=== PATIENT | female | born 1940 | race Caucasian/White ===

== ENCOUNTER → 2016-10-18 | Outpatient (CLI) | payer BC ==
[~2016-10-18] MED LIST: ALBU0.08 INH; ALBUAER19 INH; ATOR-54 PO; ATOR10TA82 PO; B-CO-25 PO; BUDE180I INH; CHOL2000 PO; COEN1CAP17 PO; COEN1CAP37 PO; DIGO0.1267 PO; DILT180C96 PO; EFF/375 PO; EFF75 PO; HYDR-5688 PO; LEVO75TA PO; PARO20TA4 PO; PRAM0.129 PO; PRAM1TAB47 PO; RAMI10CA PO; TEMA15CA4 PO; TEMA7.5C13 PO; VENL-271 PO; VENL-273 PO; WARF3TAB PO; WARF4TAB44 PO
[2016-10-18 10:18] LABS: INR 1.6 (0.9-1.1); PROTHROMBIN TIME (PATIENT) 16.9 SECONDS (9.0-12.0)
== END | disposition home or self-care (01) ==
LOC: C.LABFOXMH 09:36
PROVIDERS: ATTEND Internal Medicine
DX: Z79.01 Long term (current) use of anticoagulants (principal); Z51.81 Encounter for therapeutic drug level monitoring

== ENCOUNTER → 2016-11-01 | Outpatient (CLI) | payer BC ==
[~2016-11-01] MED LIST changes: -ATOR10TA82 PO; +ATOR10TA88 PO
[2016-11-01 10:00] LABS: INR 1.6 (0.9-1.1); PROTHROMBIN TIME (PATIENT) 17.8 SECONDS (9.0-12.0)
== END | disposition home or self-care (01) ==
LOC: C.LABFOXMH 09:09
PROVIDERS: ATTEND Internal Medicine
DX: Z51.81 Encounter for therapeutic drug level monitoring (principal); Z79.01 Long term (current) use of anticoagulants

== ENCOUNTER → 2016-11-15 | Outpatient (CLI) | payer BC ==
[2016-11-15 08:52] LABS: PROTHROMBIN TIME (PATIENT) 21.6 SECONDS (9.0-12.0)
== END | disposition home or self-care (01) ==
LOC: C.LABFOXMH 08:27
PROVIDERS: ATTEND Internal Medicine
DX: Z51.81 Encounter for therapeutic drug level monitoring (principal); Z79.01 Long term (current) use of anticoagulants

== ENCOUNTER → 2016-12-07 | Outpatient (CLI) | payer BC ==
[2016-12-07 08:57] LABS: INR 2.3 (0.9-1.1); PROTHROMBIN TIME (PATIENT) 25.7 SECONDS (9.0-12.0)
== END | disposition home or self-care (01) ==
LOC: C.LABFOXMH 08:28
PROVIDERS: ATTEND Internal Medicine
DX: Z51.81 Encounter for therapeutic drug level monitoring (principal); Z79.01 Long term (current) use of anticoagulants

== ENCOUNTER → 2017-01-03 | Outpatient (CLI) | payer BC ==
[2017-01-03 09:34] LABS: INR 1.3 (0.9-1.1); PROTHROMBIN TIME (PATIENT) 14.5 SECONDS (9.0-12.0)
== END | disposition home or self-care (01) ==
LOC: C.LABFOXMH 08:46
PROVIDERS: ATTEND Internal Medicine
DX: Z79.01 Long term (current) use of anticoagulants (principal)

== ENCOUNTER → 2017-01-17 | Outpatient (CLI) | payer BC ==
[~2017-01-17] MED LIST changes: +ATOR10TA82 PO; -ATOR10TA88 PO; +DILT180C58 PO; -DILT180C96 PO
[2017-01-17 09:20] LABS: INR 2.1 (0.9-1.1); PROTHROMBIN TIME (PATIENT) 22.7 SECONDS (9.0-12.0)
== END | disposition home or self-care (01) ==
LOC: C.LABFOXMH 08:57
PROVIDERS: ATTEND Internal Medicine
DX: Z51.81 Encounter for therapeutic drug level monitoring (principal); Z79.01 Long term (current) use of anticoagulants

== ENCOUNTER → 2017-01-31 | Outpatient (CLI) | payer BC ==
[2017-01-31 09:35] LABS: INR 1.7 (0.9-1.1); PROTHROMBIN TIME (PATIENT) 18.7 SECONDS (9.0-12.0)
== END | disposition home or self-care (01) ==
LOC: C.LABFOXMH 08:51
PROVIDERS: ATTEND Internal Medicine
DX: Z51.81 Encounter for therapeutic drug level monitoring (principal); Z79.01 Long term (current) use of anticoagulants

== ENCOUNTER → 2017-02-14 | Outpatient (CLI) | payer BC ==
[2017-02-14 09:04] LABS: INR 2.1 (0.9-1.1); PROTHROMBIN TIME (PATIENT) 22.8 SECONDS (9.0-12.0)
== END | disposition home or self-care (01) ==
LOC: C.LABFOXMH 08:36
PROVIDERS: ATTEND Internal Medicine
DX: Z51.81 Encounter for therapeutic drug level monitoring (principal); Z79.01 Long term (current) use of anticoagulants

== ENCOUNTER → 2017-03-07 | Outpatient (CLI) | payer BC ==
[2017-03-07 11:14] LABS: INR 1.7 (0.9-1.1); PROTHROMBIN TIME (PATIENT) 18.6 SECONDS (9.0-12.0)
== END | disposition home or self-care (01) ==
LOC: C.LABFOXMH 09:35
PROVIDERS: ATTEND Internal Medicine
DX: Z79.01 Long term (current) use of anticoagulants (principal)

== ENCOUNTER → 2017-03-28 | Outpatient (CLI) | payer BC ==
[2017-03-28 10:39] LABS: INR 1.9 (0.9-1.1); PROTHROMBIN TIME (PATIENT) 20.6 SECONDS (9.0-12.0)
== END | disposition home or self-care (01) ==
LOC: C.LABFOXMH 08:41
PROVIDERS: ATTEND Internal Medicine
DX: Z51.81 Encounter for therapeutic drug level monitoring (principal); Z79.01 Long term (current) use of anticoagulants

== ENCOUNTER → 2017-04-20 | Outpatient (CLI) | payer BC ==
[~2017-04-20] MED LIST changes: -ATOR10TA82 PO; +ATOR10TA88 PO; -DILT180C58 PO; +DILT180C96 PO
[2017-04-20 09:33] LABS: BLOOD UREA NITROGEN 14 mg/dl (7-18); BUN/CREATININE RATIO 24.3 (10-20); CALCIUM 9.4 mg/dl (8.5-10.1); CARBON DIOXIDE 30 mmol/L (21-32); CHLORIDE 106 mmol/L (98-107); CREATININE 0.58 mg/dl (0.60-1.20); GLUCOSE 108 mg/dl (70-99); POTASSIUM 3.8 mmol/L (3.5-5.1); SODIUM 141 mmol/L (136-145)
[2017-04-20 09:39] LABS: PROTHROMBIN TIME (PATIENT) 42.6 SECONDS (9.0-12.0)
[2017-04-20 09:40] LABS: INR 3.8 (0.9-1.1)
[2017-04-20 10:18] LABS: ESTIMATED AVERAGE GLUCOSE 128 mg/dl; HA1C FLAG Normal (Normal)
== END | disposition home or self-care (01) ==
LOC: C.LABFOXMH 08:57
PROVIDERS: ATTEND Internal Medicine
DX: Z51.81 Encounter for therapeutic drug level monitoring (principal); Z79.01 Long term (current) use of anticoagulants; E03.9 Hypothyroidism, unspecified; E11.9 Type 2 diabetes mellitus without complications

== ENCOUNTER → 2017-05-03 | Outpatient (CLI) | payer BC ==
[2017-05-03 17:56] LABS: BASO % 0.2 %; BASO ABS # 0.02 K/uL (0-0.2); COMPLETE YES; EOS % 3.2 %; HEMATOCRIT 40.1 % (37-47); IG% 0.2 %; LYMPH % 20.9 %; LYMPH ABS # 1.72 K/uL (1.2-3.4); MEAN CELL VOLUME 99.5 fL (80-100); MEAN CORPUSCULAR HEMOGLOBIN 34.2 pg (25-34); MEAN CORPUSCULAR HGB CONC 34.4 g/dl (32-36); MEAN PLATELET VOLUME 11.2 fL (7.4-10.4); MONO % 8.3 %; NEUT % 67.2 %; PLATELET COUNT 240 K/uL (130-400); RED BLOOD COUNT 4.03 M/uL (4.2-5.4); WHITE BLOOD COUNT 8.22 K/uL (4.8-10.8)
[2017-05-03 18:23] LABS: ALT/SGPT 23 U/L (12-78); AST/SGOT 17 U/L (15-37); BLOOD UREA NITROGEN 16 mg/dl (7-18); BUN/CREATININE RATIO 22.6 (10-20); CALCIUM 8.8 mg/dl (8.5-10.1); CARBON DIOXIDE 30 mmol/L (21-32); CHLORIDE 108 mmol/L (98-107); CREATININE 0.72 mg/dl (0.60-1.20); GLUCOSE 97 mg/dl (70-99); POTASSIUM 4.1 mmol/L (3.5-5.1); SODIUM 143 mmol/L (136-145)
== END | disposition home or self-care (01) ==
LOC: C.LAB 17:09
PROVIDERS: ATTEND Internal Medicine Cardiovascular Disease
DX: I48.91 Unspecified atrial fibrillation (principal); E78.5 Hyperlipidemia, unspecified; I25.10 Atherosclerotic heart disease of native coronary artery without angina pectoris; I10 Essential (primary) hypertension; Z79.01 Long term (current) use of anticoagulants

== ENCOUNTER → 2017-05-03 | Outpatient (CLI) | payer BC ==
[2017-05-03 09:04] LABS: INR 1.7 (0.9-1.1); PROTHROMBIN TIME (PATIENT) 18.2 SECONDS (9.0-12.0)
== END | disposition home or self-care (01) ==
LOC: C.LABFOXMH 08:34
PROVIDERS: ATTEND Nurse Practitioner Family
DX: Z79.01 Long term (current) use of anticoagulants (principal)

== ENCOUNTER → 2017-05-16 | Outpatient (CLI) | payer BC ==
[2017-05-16 11:31] LABS: INR 2.4 (0.9-1.1); PROTHROMBIN TIME (PATIENT) 26.4 SECONDS (9.0-12.0)
== END | disposition home or self-care (01) ==
LOC: C.LABFOXMH 09:42
PROVIDERS: ATTEND Nurse Practitioner Family
DX: Z51.81 Encounter for therapeutic drug level monitoring (principal); Z79.01 Long term (current) use of anticoagulants

== ENCOUNTER → 2017-06-06 | Outpatient (CLI) | payer BC ==
[2017-06-06 09:58] LABS: INR 2.3 (0.9-1.1)
== END | disposition home or self-care (01) ==
LOC: C.LABFOXMH 09:13
PROVIDERS: ATTEND Nurse Practitioner Family
DX: Z79.01 Long term (current) use of anticoagulants (principal)

== ENCOUNTER → 2017-06-12 | Outpatient (CLI) | payer BC ==
--- NOTE | 2017-06-12 13:49 | MAMMOGRAPHY REPORT ---
BILATERAL DIGITAL DIAGNOSTIC MAMMOGRAM TOMOSYNTHESIS WITH CAD AND TARGETED BILATERAL ULTRASOUND: 06/12 CLINICAL HISTORY: 77-year-old woman presents with new left bloody nipple discharge since May 26. She reports several small drops of bloody nipple discharge per day. No palpable mass or skin changes . Also due for annual bilateral mammograms. TECHNIQUE: Bilateral breast tomosynthesis in addition to standard 2D mammography was performed. Spot magnification left CC and ML views were also obtained. Current study was also evaluated with a Comp uter Aided Detection (CAD) system. COMPARISON: Comparison is made to exams dated: 07/02/2015 mammogram, 01/06/2014 mammogram, 01/04/2013 m ammogram, 12/13/2012 mammogram - [facility], and 06/17/2008 mammogram. BREAST COMPOSITION: There are scattered areas of fibroglandular density in both breasts. FINDINGS: There is diffuse nodularity in both breasts. A grouping of about 10 subcentimeter circumsc ribed masses in the 12:00 middle one third of the right breast has been present and appears unchanged dating back to at least 06/17/2008, therefore likely benign. There is also stable nodularity in the anterior and lateral right breast, and also throughout the lateral left breast. However, there is a mass with 2 associated punctate calcifications in the upper outer anterior left breast, in which onl y one calcification was present on the prior 2014 mammogram. Given the relatively stable nodularity of the lateral left breast, but new nipple discharge, further evaluation with ultrasound was performe d. Targeted ultrasound was performed in the periareolar and retroareolar left breast. There is mild rocky t ectasia with numerous scattered cysts in the periareolar left breast, some of which appear to be as sociated with mildly ectatic ducts. However, there is a solid isoechoic mass with 2 associated calci fications and angular borders in the 2:00 left breast, 1 cm from the nipple, thought to correlate wit h the 2 calcifications seen mammographically. This mass measures 4.3 x 3.2 x 4.4 mm and is indetermi vannessa, given the solid nature and angular borders. Definitive characterization with an ultrasound-jami ded core biopsy is recommended. Given the multiple bilateral nature of the masses, differential considerations include benign fibrocy stic changes but also papillomatosis. Therefore, sonographic evaluation was also performed in the 12 :00 right breast and lateral aspect of the right breast. Numerous anechoic benign simple cysts are s een in the right breast, particularly within the 12:00 axes. However, in the 12:00 right breast, 1 c m from the nipple, there is a mixed isoechoic and anechoic solid and cystic mass, predominantly solid in appearance, measuring 4.5 x 3.2 x 4.6 mm. This could represent a papillary lesion or complicated cyst, and definitive characterization with ultrasound guided core biopsy is recommended. Other mild duct ectasia with associated cysts is seen in the 7:00 right breast, and also in the 11:00 right torey ast. IMPRESSION: ACR BI-RADS CATEGORY 4B: INTERMEDIATE SUSPICION FOR MALIGNANCY, TARGETED ULTRASOUND ACR BI-RADS CATEGORY 4B: INTERMEDIATE SUSPICION FOR MALIGNANCY 1. Ultrasound guided core biopsy is recommended for an indeterminate solid angular 4.4 mm mass with 2 associated calcifications in the 2:00 left breast, 1 cm from the nipple. This could possibly be a cause of the patient's bloody nipple discharge. However, correlation with pathology results is recom mended and if the pathology results do not explain a mass that could cause nipple discharge, further workup of that since it may be needed. 2. Ultrasound-guided core needle biopsy is recommended in the 12:00 right breast, for a mixed solid and cystic, predominantly solid mass that measures 4.6 mm. These results and recommendations were discussed with the patient at the time of the exam. She tenta tively scheduled the bilateral breast ultrasound-guided core biopsies prior to leaving our department . Approximately 10% of breast cancers are not detected with mammography. A negative mammographic report should not delay biopsy if a clinically suggestive mass is present. Janelle Villagran M.D. ay/:06/12/2017 12:35:33 Valve Mechanic: Lizett SCHWAB(Pilar)(M), [facility] letter sent: Abnormal 4/5 BI-RADS Code: ACR BI-RADS Category 4B: Intermediate Suspicion For Malignancy Ultrasound BI-RADS: ACR BI-RADS Category 4B: Intermediate Suspicion For Malignancy
== END | disposition home or self-care (01) ==
LOC: C.MAMM 08:25
PROVIDERS: ATTEND Internal Medicine Hospice and Palliative Medicine
DX: N64.52 Nipple discharge (principal)

== ENCOUNTER → 2017-06-20 | Outpatient (CLI) | payer BC ==
[2017-06-20 10:05] LABS: INR 1.7 (0.9-1.1); PROTHROMBIN TIME (PATIENT) 18.8 SECONDS (9.0-12.0)
== END | disposition home or self-care (01) ==
LOC: C.LABFOXMH 09:29
PROVIDERS: ATTEND Nurse Practitioner Family
DX: Z51.81 Encounter for therapeutic drug level monitoring (principal); Z79.01 Long term (current) use of anticoagulants

== ENCOUNTER → 2017-06-21 | Outpatient (CLI) | payer BC ==
--- NOTE | 2017-06-21 10:17 | Discharge Instructions ---
Discharge Instructions Procedure Procedure Date: Jun 21, 2017. Reason for visit: Bilateral Masses. Discharge Discharge Date: Jun 21, 2017. Discharge Diagnosis: status post breast biopsy Instructions Activity Recommendations: Additional Limitations (see below) Return to School/Work: no limitations Recommended Home Diet: No Limitations Provider Instructions: ACTIVITY RECOMMENDATIONS: * No lifting, pushing, pulling or exercising the affected side for three days. RETURN TO SCHOOL/WORK: * You may return to work/school after the procedure, but do not perform any strenuous activities for 24 to 48 hours. MEDICATIONS: * Tylenol (two 325 mg) every four to six hours if needed for mild pain (if not allergic to Tylenol). DIET: * Resume previous diet. SPECIAL CARE INSTRUCTIONS: * Keep biopsy site dry for 24 hours. May shower after 24 hours, but do not soak (bathe) incision. * May remove Tegaderm (plastic patch) tomorrow AFTER showering. * Leave the steri-strips on for one week. Allow the steri-strips to fall off by themselves. If not off after one week, you may remove them. You may place a Bandaid crosswise over the strips, if desired. * Apply ice 10 minutes on and 10 minutes off as needed. * Wear a bra at bedtime to sleep more comfortably for 2-3 days. * Your referring physician should have the results after approximately 5 to 7 business days. * Call for unusual bleeding, fever, drainage, etc or if you have any questions call during normal business hours or after hours call Dr Abrams, . FOLLOW UP VISIT: Follow-up with Referring Physician as scheduled. Allergies Coded Allergies: Sodium Benzoate (Verified Allergy, Unknown, ., 02/27/14) Sulfa Drugs (Verified Allergy, Unknown, ., 02/27/14) Alicia Odonnell Recommendations: Call your doctor if: * Temperature above 101 degrees * Pain not relieved by pain medicine ordered * There is increased drainage or redness from any incision * You have any unanswered questions or concerns. Your Doctors Instructions noted above were prepared by provider Kitty Abrams. Patient Signature Section: Patient Instructions Signature Page Yang Holley Patient (or Guardian) Signature/Date: I have read and understand the instructions given to me by my caregivers. Caregiver/RN/Doctor Signature/Date: The above-named patient and/or guardian has received patient instructions on this date. + Original Patient Signature Page (only) stays with chart. Please make copy for patient.
--- NOTE | 2017-06-21 13:48 | MAMMOGRAPHY REPORT ---
THIS REPORT HAS BEEN AMENDED. ULTRASOUND GUIDED BIOPSY LEFT BREAST: 06/21/2017 CLINICAL HISTORY: Left 2:00 breast mass. PATIENT CONSENT: The procedure, risks and benefits were discussed with the patient and informed writt en consent was obtained. A timeout was performed immediately prior to the procedure. PROCEDURE DESCRIPTION: With ultrasound guidance, aseptic technique, and lidocaine as the local anesth etic (1% lidocaine to anesthetize the skin and 1% lidocaine with epinephrine to anesthetize the deepe r tissues), the mass of concern in the left 2:00 breast was sampled 4 times with a 14-gauge Achieve b iopsy needle. Immediately thereafter, with ultrasound guidance, aseptic technique, and lidocaine as the local anesthetic, a metallic localizer clip was placed centrally in the mass. Direct pressure wa s applied to the site immediately post procedure and hemostasis was achieved. Postprocedure unilater al mammograms were performed to confirm placement of the clip in the expected location of the breast mass. The patient tolerated the procedure without complication. She was given wound care instructio ns. The specimens were sent to pathology for analysis. COMPARISON: Comparison is made to exams dated: 06/12/2017 ultrasound, 06/12/2017 mammogram, 07/02/2015 mammogram, and 01/06/2014 mammogram - [facility]. IMPRESSION: ULTRASOUND GUIDED BIOPSY Ultrasound guided core needle biopsy of the left 2:00 breast mass, with clip placement. The patient will receive pathology results from her referring provider. Kitty Abrams M.D. ah/:06/21/2017 10:18:23 Demolition Worker: Edie Kaye, [facility] AMENDMENT: 06/28/2017 Kitty Abrams M.D. Pathology from bilateral breast biopsies were reviewed on 06/28/2017. Pathology of the left 2:[address] mass yielded an atypical papillary proliferation. Given the presence of atypia and given that it could account for the patient's bloody nipple discharge, surgical excision is recommended. Pathology of the right 12:00 breast mass yielded fibrocystic changes and adenosis, which is benign and concord ant with the imaging findings.
--- NOTE | 2017-06-21 13:48 | MAMMOGRAPHY REPORT ---
ULTRASOUND GUIDED BIOPSY RIGHT BREAST: 06/21/2017 CLINICAL HISTORY: Right 12:00 breast mass. PATIENT CONSENT: The procedure, risks and benefits were discussed with the patient and informed writt en consent was obtained. A timeout was performed immediately prior to the procedure. PROCEDURE DESCRIPTION: With ultrasound guidance, aseptic technique, and lidocaine as the local anesth etic (1% lidocaine to anesthetize the skin and 1% lidocaine with epinephrine to anesthetize the deepe r tissues), the mass of concern in the right 12:00 breast was sampled 4 times with a 14-gauge Achieve biopsy needle. Immediately thereafter, with ultrasound guidance, aseptic technique, and lidocaine as the local anesthetic, a metallic localizer clip was placed centrally in the mass. Direct pressure was applied to the site immediately post procedure and hemostasis was achieved. Postprocedure unila teral mammograms were performed to confirm placement of the clip in the expected location of the dean st mass. The patient tolerated the procedure without complication. She was given wound care instruc tions. The specimens were sent to pathology for analysis. COMPARISON: Comparison is made to exams dated: 06/21/2017 ultrasound biopsy, 06/12/2017 ultrasound, 05/17 mammogram, 07/02/2015 mammogram, and 01/06/2014 mammogram - [facility]. IMPRESSION: ULTRASOUND GUIDED BIOPSY Ultrasound-guided core needle biopsy of the right 12:00 breast mass, with clip placement. The patien t will receive pathology results from her referring provider. Kitty Abrams M.D. ah/:06/21/2017 10:19:20 Youth Support Worker: Edie Kaye, [facility]
--- NOTE | 2017-06-21 13:50 | MAMMOGRAPHY REPORT ---
BILATERAL DIGITAL DIAGNOSTIC MAMMOGRAM TOMOSYNTHESIS: 06/21/2017 CLINICAL HISTORY: Status post ultrasound-guided bilateral breast biopsies. TECHNIQUE: Breast tomosynthesis in addition to standard 2D mammography was performed. Postprocedura l bilateral CC and ML views were obtained. COMPARISON: Comparison is made to exams dated: 06/21/2017 ultrasound biopsy, 06/12/2017 ultrasound, 06/16 mammogram, 06/12/2017 mammogram, and 01/06/2014 mammogram - [facility]. BREAST COMPOSITION: There are scattered areas of fibroglandular density in both breasts. FINDINGS: A new ribbon-shaped biopsy marker clip is seen in the right breast status post ultrasound- guided biopsy of a right 12:00 breast mass. A new ribbon-shaped biopsy marker clip is seen in the le ft breast status post ultrasound guided biopsy of a left 2:00 breast mass. No significant postbiopsy hematoma is seen. IMPRESSION: POST PROCEDURE IMAGING FOR MARKER PLACEMENT New biopsy marker clips status post bilateral ultrasound-guided biopsies. Pathology results are pend ing. Approximately 10% of breast cancers are not detected with mammography. A negative mammographic report should not delay biopsy if a clinically suggestive mass is present. Kitty Abrams M.D. /:06/21/2017 10:29:02 Cognos: Edie Kaye, [facility] BI-RADS Code: Post Procedure Imaging For Marker Placement
== END ==
LOC: C.MAMM 09:26
PROVIDERS: ATTEND Internal Medicine Hospice and Palliative Medicine
DX: N63 Unspecified lump in breast (principal); N60.21 Fibroadenosis of right breast

== ENCOUNTER → 2017-06-27 | Outpatient (CLI) | payer BC ==
[2017-06-27 11:30] LABS: INR 1.4 (0.9-1.1); PROTHROMBIN TIME (PATIENT) 14.9 SECONDS (9.0-12.0)
== END | disposition home or self-care (01) ==
LOC: C.LABFOXMH 09:13
PROVIDERS: ATTEND Nurse Practitioner Family
DX: Z79.01 Long term (current) use of anticoagulants (principal)

== ENCOUNTER → 2017-07-10 | Outpatient (CLI) | payer BC ==
[~2017-07-10] MED LIST changes: -ALBU0.08 INH; -ALBUAER19 INH; -ATOR10TA88 PO; -BUDE180I INH; -COEN1CAP17 PO; -EFF/375 PO; -EFF75 PO; -PARO20TA4 PO; -PRAM0.129 PO; -TEMA15CA4 PO
[2017-07-10 12:36] LABS: INR 1.1 (0.9-1.1)
== END | disposition home or self-care (01) ==
LOC: C.LABFOXMH 12:54
PROVIDERS: ATTEND Internal Medicine
DX: Z51.81 Encounter for therapeutic drug level monitoring (principal); Z79.01 Long term (current) use of anticoagulants

== ENCOUNTER → 2017-07-11 14:45 | Day surgery (SDC) | payer BC ==
--- NOTE | 2017-07-06 10:33 | PAT Medication Instructions ---
Service Date Jul 06, 2017. Current Home Medication List Atorvastatin (Lipitor), 20 MG PO BID B-Complex W/ Folic Acid (Super B Complex Maxi), 1 TAB PO HS Cholecalciferol (Vitamin D3), 1 CAP PO HS Coenzyme Q10 (Ubidecarenone) (Co Q-10), 1 CAP PO QPM Digoxin (Lanoxin), 0.125 MG PO QAM Diltiazem Hcl Coated Beads (Diltiazem Cd), 180 MG PO QAM Levothyroxine Sodium (Synthroid), 75 MCG PO QAM Pramipexole Dihydrochloride (Mirapex), 1 TAB PO HS Ramipril (Ramipril), 1 TAB PO QAM Temazepam (Temazepam), 1 TAB PO HS Venlafaxine Hcl (Venlafaxine Hcl Er), 1 TAB PO QAM Venlafaxine Hcl (Venlafaxine Hcl Er), 1 TAB PO QAM Warfarin Sodium (Coumadin), 3 MG PO HS Warfarin Sodium (Warfarin Sodium), 0.5 MG PO HS Medication Instructions For Your Scheduled Surgery - Held per surgeon and prescribers instructions: Warfarin Sodium (Coumadin), 3 MG PO HS Warfarin Sodium (Warfarin Sodium), 0.5 MG PO HS - Hold the following medications as of 07/06/17: Coenzyme Q10 (Ubidecarenone) (Co Q-10), 1 CAP PO QPM - Do not take the evening prior to surgery: Pramipexole Dihydrochloride (Mirapex), 1 TAB PO HS - Hold the following medications the morning of surgery: Ramipril (Ramipril), 1 TAB PO QAM - Take the following medications the morning of surgery with a sip of water OTHERWISE NOTHING TO EAT OR DRINK AFTER MIDNIGHT: Venlafaxine Hcl (Venlafaxine Hcl Er), 1 TAB PO QAM Venlafaxine Hcl (Venlafaxine Hcl Er), 1 TAB PO QAM Digoxin (Lanoxin), 0.125 MG PO QAM Diltiazem Hcl Coated Beads (Diltiazem Cd), 180 MG PO QAM Levothyroxine Sodium (Synthroid), 75 MCG PO QAM Atorvastatin (Lipitor), 20 MG PO BID - Take the following medications as scheduled the night before surgery: B-Complex W/ Folic Acid (Super B Complex Maxi), 1 TAB PO HS Cholecalciferol (Vitamin D3), 1 CAP PO HS Atorvastatin (Lipitor), 20 MG PO BID Temazepam (Temazepam), 1 TAB PO HS If you have any questions please call us at [phone] or [phone] or [phone]
[2017-07-06 11:55] LABS: BASO % 0.4 %; BASO ABS # 0.03 K/uL (0-0.2); COMPLETE YES; EOS % 4.9 %; HEMATOCRIT 41.5 % (37-47); IG% 0.1 %; LYMPH % 18.7 %; LYMPH ABS # 1.31 K/uL (1.2-3.4); MEAN CORPUSCULAR HEMOGLOBIN 34.5 pg (25-34); MEAN CORPUSCULAR HGB CONC 34.2 g/dl (32-36); MEAN PLATELET VOLUME 11.6 fL (7.4-10.4); MONO % 7.3 %; NEUT % 68.6 %; PLATELET COUNT 207 K/uL (130-400); RED BLOOD COUNT 4.11 M/uL (4.2-5.4)
[2017-07-06 12:31] LABS: CALCIUM 8.9 mg/dl (8.5-10.1); CREATININE 0.56 mg/dl (0.60-1.20); POTASSIUM 4.4 mmol/L (3.5-5.1)
[~2017-07-11] VITALS: Ht 165.1 cm; Wt 83.6 kg
[2017-07-11 09:20] VITALS: BP 151/74; PULSE 71; TEMP 36.6; O2SAT 98; Ht 165.1 cm; Wt 83.6 kg
--- NOTE | 2017-07-11 09:47 | History & Physical Bridge Note ---
H&P Re-Evaluation Bridge Note: I have examined the patient, reviewed the History & Physical and in the interval since the performance of the History & Physical I have noted the following changes of clinical significance: No changes noted
[2017-07-11 09:59] LABS: INR 1.1 (0.9-1.1); PARTIAL THROMBOPLASTIN RATIO 1.1; PROTHROMBIN TIME (PATIENT) 12.3 SECONDS (9.0-12.0)
--- NOTE | 2017-07-11 11:56 | Discharge Instructions ---
Discharge Instructions Date of Service Jul 11, 2017. Visit Reason for Visit: Left Breast Mass Discharge Discharge Diagnosis / Problem: left breast lumpetomy Discharge Goals Goal(s): Improve disease control Activity Recommendations Activity Limitations: as noted below Shower/Bathe: tomorrow Driving or Machine Use: when not taking [place] Anesthesia . Post Anesthesia Instructions: If you have had General Anesthesia or IV Sedation: * Do not drive today. * Resume driving when surgeon permits. * Do not make important decisions or sign legal documents today. * Call surgeon for: 1. Temperature elevations greater than 101 degrees F. 2. Uncontrollable pain. 3. Excessive bleeding. 4. Persistent nausea and vomiting. 5. Medication intolerance (nausea, vomiting or rash). * For nausea and vomiting use only clear liquids such as: tea, soda, bouillon until nausea subsides, then gradually increase diet as tolerated. * If you have any concerns or questions, call your surgeon's office. If physician is unavailable and it is an emergency, call 911 or go to the nearest emergency room. . Instructions / Follow-Up Instructions / Follow-Up Dr. Dodson in 1-2 weeks as planned, call [phone] for any questions Diet Recommendations Recommended Home Diet: no limitations Procedures Procedures Performed: Left Breast Lumpectomy with Needle Localization Pending Studies Studies pending at discharge: yes List of pending studies: pathology Medical Emergencies . Who to Call and When: Medical Emergencies: If at any time you feel your situation is an emergency, please call 911 immediately. . Non-Emergent Contact Non-Emergency issues call your: Surgeon Call Non-Emergent contact if: you have a fever, temperature is above 101.5, your pain is not controlled, you have any medication questions . . "Provider Documentation" section prepared by Ezekiel Jacobo. .
--- NOTE | 2017-07-11 12:23 | Anesthesiology Progress Note ---
Anesthesia Post Op Note Date & Time Jul 11, 2017 at 12:23 Vital Signs Pain Intensity: 0 Vital Signs Past 12 Hours Date Time Temp Pulse Resp B/P (MAP) Pulse Ox O2 Delivery O2 Flow Rate FiO2 07/11/17 12:10 56 17 135/60 100 Oxymask 10 07/11/17 12:00 63 17 132/50 100 Oxymask 10 07/11/17 11:54 36.9 64 16 137/72 100 Oxymask 10 07/11/17 09:20 36.6 71 18 151/74 (99) 98 Room Air Notes Mental Status: alert / awake / arousable, participated in evaluation Pt Amnestic to Procedure: Yes Nausea / Vomiting: adequately controlled Pain: adequately controlled Airway Patency, RR, SpO2: stable & adequate BP & HR: stable & adequate Hydration State: stable & adequate Anesthetic Complications: no major complications apparent
[2017-07-11 12:37] VITALS: BP 149/64; PULSE 65; TEMP 36.7; O2SAT 95
--- NOTE | 2017-07-11 12:58 | [facility] Operative Report ---
Operative Report Operative Date Jul 11, 2017. Pre-Operative Diagnosis Left Breast Mass Post-Operative Diagnosis Left Breast Mass Procedure(s) Performed Left Breast Lumpectomy with Needle Localization Surgeon Dr. Dodson Social Media Designer Surgeon(s) Trevor Jacobo PA-C Estimated Blood Loss 10 ml Findings small hematoma from needle loc procedure otherwise normal anatomy. Specimens A: Left breast tissue ( one long lateral, two short superior) Anesthesia LMA Complication(s) None Disposition Recovery Room / PACU Description of Procedure After informed consent was obtained the patient was taken to the operating room. She previously had been to the breast [place] and the lesion had been needle localized. We sterilely prepped and draped the entire left breast region. I began by making a curvilinear incision just above the entrance of the needle. We carried this down through the soft tissue using electrocautery creating skin flaps in all directions. I then cut the outside portion of the wire and pulled it into the wound itself. We then continued to used traction countertraction electrocautery to come around the wire in 360. I was able to come down around the tip of the wire and removed the lump in 1 specimen. We did thierry it such that one long lateral stitch marked the lateral side and 2 short stitches marked the superior side. The Wound was thoroughly irrigated and bleeding points were controlled using electrocautery. Was closed in multiple layers using 2-0 Vicryl for the deep layers 3-0 Vicryl for the mid layers 4-0 Monocryl for the skin. Some Marcaine benzoin and Steri-Strips were placed as a dressing. We did x-ray the specimen and we did have the clip in the middle of it. The patient was then extubated and transferred recovery in stable condition I attest to the content of the Intraoperative Record and any orders documented therein. Any exceptions are noted below.
[2017-07-11 13:10] VITALS: BP 127/60; PULSE 64; TEMP 36.6; O2SAT 96
[2017-07-11 13:40] VITALS: BP 131/61; PULSE 55; TEMP 36.4; O2SAT 99
--- NOTE | 2017-07-11 14:41 | MAMMOGRAPHY REPORT ---
SPECIMEN: 07/11/2017 CLINICAL HISTORY: Left breast surgical excision specimen of a biopsy proven papilloma with atypia. Please refer to the report from left breast needle localization with imaging performed at the same ti mo for full detail. IMPRESSION: SPECIMEN Please refer to the report from left breast needle localization with imaging performed at the same ti mo for full detail. Janelle Villagran M.D. ay/:07/11/2017 12:28:24 Diesel Fitter Mechanic: Edie Kaye, [facility]
[~2017-07-11 14:45] MED LIST changes: +ATROPINE SULFATE 0.1 MG/ML 5ML SYR IV PRN; +BUPIVACAINE/EPINEPHRINE 0.5% MPF 1:200,000 30 ML VIAL ONE; +CEFAZOLIN 2000 MG/60 ML D5W IV SCH; +EpHEDrine SULFATE INJ 50 MG/ML AMP IV PRN; +FENTANYL CITRATE INJ 50 MCG/1 ML 2 ML VIAL IV PRN; +FENTANYL CITRATE INJ 50 MCG/1 ML 2 ML VIAL ONE; +FLUMAZENIL 0.1 MG/1 ML 10 ML VIAL IV PRN; +HYDROCODONE/ACETAMOPHEN 5/325MG TAB PO PRN; +HYDROmorphone INJ 2 MG/ML SYR/VIAL IV PRN; +LABETALOL HCL IV 5 MG/ML 20ML IV PRN; +LACTATED RINGER'S 1000ML 1,000 ML IV SCH; +MEPERIDINE HCL 25 MG/ML CARP IV PRN; +MIDAZOLAM HCL 1 MG/ML 2ML VIAL ONE; +MoRPHine SULFATE 2 MG/ML CARP IV PRN; +NALOXONE HCL 0.4 MG/1 ML VIAL/CARP IV PRN; +ONDANSETRON INJ 2 MG/ML 2 ML VIAL IV PRN; +PHENYLEPHRINE 100MCG/ML 5ML SYR IV PRN
== END | disposition home or self-care (01) ==
LOC: C.ACU 14:45
PROVIDERS: ATTEND Surgery
DX: N63 Unspecified lump in breast (principal); N64.52 Nipple discharge; J45.909 Unspecified asthma, uncomplicated; I48.91 Unspecified atrial fibrillation; I25.10 Atherosclerotic heart disease of native coronary artery without angina pectoris; E78.5 Hyperlipidemia, unspecified; I10 Essential (primary) hypertension; E03.9 Hypothyroidism, unspecified; M19.90 Unspecified osteoarthritis, unspecified site; Z87.01 Personal history of pneumonia (recurrent); Z98.49 Cataract extraction status, unspecified eye; Z96.659 Presence of unspecified artificial knee joint; Z82.49 Family history of ischemic heart disease and other diseases of the circulatory system; Z82.3 Family history of stroke; Z83.3 Family history of diabetes mellitus; Z80.0 Family history of malignant neoplasm of digestive organs; Z79.01 Long term (current) use of anticoagulants; F32.9 Major depressive disorder, single episode, unspecified; E66.9 Obesity, unspecified; G47.33 Obstructive sleep apnea (adult) (pediatric)

== ENCOUNTER → 2017-07-11 | Outpatient (CLI) | payer BC ==
--- NOTE | 2017-07-11 14:41 | MAMMOGRAPHY REPORT ---
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 She presents for preoperative needle and wire localization prior to excisional biopsy. COMPARISON: Prior mammograms dated 06/21/2017, 06/12/2017, 07/02/2015, 01/06/2014, 01/04/2013 prior u ltrasound guided core biopsy dated 06/21/2017. PATIENT CONSENT: The risks of the procedure were explained to the patient and informed consent was ob tained. The patient denied eating or drinking anything this morning that would preclude anesthesia. She denied allergy to lidocaine. PROCEDURE DESCRIPTION: Post procedure mammograms after the ultrasound-guided core biopsy in the 2:00 left breast dated 06/21/2017 were reviewed. The ribbon-shaped biopsy marker clip in the 2:00 left br east is the intended target for preoperative localization. With the patient in the seated position, the left breast was placed in lateralmedial compression. 1% buffered Lidocaine without epinephrine w as administered as local anesthesia. A 3cm Erwin II needle and wire combination was inserted into t he breast. Optimal positioning was confirmed and the needle was removed leaving the wire in place, as per surgeon's preference. The entire procedure including approach and needle length were discussed with the operating surgeon prior to surgery. The patient tolerated the procedure well and there was no immediate complication. There was mild oozing from the localization site after the procedure for which additional manual compression was held for 10 minutes. She was transferred to the hospital ope rating room in satisfactory condition. The specimen radiograph demonstrates a portion of the localizing wire, the ribbon-shaped metallic bio psy marker clip, and asymmetry and a few punctate microcalcifications, compatible with successful pre operative localization and subsequent surgical excision. IMPRESSION: NEEDLE LOCALIZATION Status post successful preoperative localization for a biopsy proven papilloma with atypia in the 2:0 0 left breast. The imaged specimen includes the intended abnormalities. The patient will receive notification of the final pathology results from her referring physician. Janelle Villagran M.D. ay/:07/11/2017 12:45:28 Grounds Cleaner: Edie WESTON)(Yang), [facility]
== END | disposition home or self-care (01) ==
LOC: C.MAMM 07:36
PROVIDERS: ATTEND Surgery
DX: D24.2 Benign neoplasm of left breast (principal)

== ENCOUNTER → 2017-07-17 | Outpatient (CLI) | payer BC ==
[~2017-07-17] MED LIST changes: -ATROPINE SULFATE 0.1 MG/ML 5ML SYR IV PRN; -BUPIVACAINE/EPINEPHRINE 0.5% MPF 1:200,000 30 ML VIAL ONE; -CEFAZOLIN 2000 MG/60 ML D5W IV SCH; -EpHEDrine SULFATE INJ 50 MG/ML AMP IV PRN; -FENTANYL CITRATE INJ 50 MCG/1 ML 2 ML VIAL IV PRN; -FENTANYL CITRATE INJ 50 MCG/1 ML 2 ML VIAL ONE; -FLUMAZENIL 0.1 MG/1 ML 10 ML VIAL IV PRN; -HYDROCODONE/ACETAMOPHEN 5/325MG TAB PO PRN; -HYDROmorphone INJ 2 MG/ML SYR/VIAL IV PRN; -LABETALOL HCL IV 5 MG/ML 20ML IV PRN; -LACTATED RINGER'S 1000ML 1,000 ML IV SCH; -MEPERIDINE HCL 25 MG/ML CARP IV PRN; -MIDAZOLAM HCL 1 MG/ML 2ML VIAL ONE; -MoRPHine SULFATE 2 MG/ML CARP IV PRN; -NALOXONE HCL 0.4 MG/1 ML VIAL/CARP IV PRN; -ONDANSETRON INJ 2 MG/ML 2 ML VIAL IV PRN; -PHENYLEPHRINE 100MCG/ML 5ML SYR IV PRN; -WARF3TAB PO
[2017-07-17 08:43] LABS: INR 1.4 (0.9-1.1)
== END | disposition home or self-care (01) ==
LOC: C.LABFOXMH 08:23
PROVIDERS: ATTEND Internal Medicine
DX: Z79.01 Long term (current) use of anticoagulants (principal); Z51.81 Encounter for therapeutic drug level monitoring

== ENCOUNTER → 2017-08-01 | Outpatient (CLI) | payer BC ==
[2017-08-01 11:01] LABS: INR 1.5 (0.9-1.1)
[2017-08-01 11:04] LABS: HEMATOCRIT 37.6 % (37-47); MEAN CELL VOLUME 99.7 fL (80-100); MEAN CORPUSCULAR HEMOGLOBIN 32.6 pg (25-34); MEAN CORPUSCULAR HGB CONC 32.7 g/dl (32-36); MEAN PLATELET VOLUME 11.5 fL (7.4-10.4); PLATELET COUNT 211 K/uL (130-400); RED BLOOD COUNT 3.77 M/uL (4.2-5.4); WHITE BLOOD COUNT 6.24 K/uL (4.8-10.8)
[2017-08-01 11:15] LABS: BLOOD UREA NITROGEN 13 mg/dl (7-18); BUN/CREATININE RATIO 26.5 (10-20); CALCIUM 8.7 mg/dl (8.5-10.1); CARBON DIOXIDE 29 mmol/L (21-32); CHLORIDE 109 mmol/L (98-107); GLUCOSE 92 mg/dl (70-99); POTASSIUM 4.1 mmol/L (3.5-5.1); SODIUM 145 mmol/L (136-145)
[2017-08-01 11:23] LABS: ESTIMATED AVERAGE GLUCOSE 123 mg/dl; HA1C FLAG Normal (Normal)
[2017-08-01 11:26] LABS: CHOLESTEROL 132 mg/dl (0-200); CHOLESTEROL/HDL RATIO 2.2; HDL CHOLESTEROL 61 mg/dl; LDL CHOLESTEROL CALCULATED 52 mg/dl; THYROID STIMULATING HORMONE 0.507 uIu/ml (0.300-4.500); TRIGLYCERIDES 95 mg/dl (0-150); VERY LOW DENSITY LIPOPROT CALC 19 mg/dl
== END | disposition home or self-care (01) ==
LOC: C.LABFOXMH 10:59
PROVIDERS: ATTEND Internal Medicine Hospice and Palliative Medicine
DX: Z79.01 Long term (current) use of anticoagulants (principal); I10 Essential (primary) hypertension; E11.9 Type 2 diabetes mellitus without complications

== ENCOUNTER → 2017-08-11 | Outpatient (CLI) | payer BC ==
[~2017-08-11] MED LIST changes: +DILT180C58 PO; -DILT180C96 PO
--- NOTE | 2017-08-11 14:04 | DIAGNOSTIC IMAGING REPORT ---
RIGHT FOOT 3 VIEWS HISTORY: Right FOOT PAIN COMPARISON: None. 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 Mild soft tissue swelling within the first toe. No dislocation. Plantar heel spur. Small distracted corner fracture at the lateral base of the distal phalanx of the first toe. No radiopaque foreign bodies. IMPRESSION: Small distracted corner fracture at the lateral base of the distal phalanx of the first toe. Electronically signed by: Fransisco Rushing M.D. 08/11/2017 2:03 PM Dictated Date/Time: 08/11/2017 1:56 PM
== END | disposition home or self-care (01) ==
LOC: C.RAD 13:29
PROVIDERS: ATTEND Nurse Practitioner Family
DX: S92.421A Displaced fracture of distal phalanx of right great toe, initial encounter for closed fracture (principal); X58.XXXA Exposure to other specified factors, initial encounter; M79.89 Other specified soft tissue disorders

== ENCOUNTER → 2017-08-29 | Outpatient (CLI) | payer BC ==
[2017-08-29 09:55] LABS: INR 2.5 (0.9-1.1); PROTHROMBIN TIME (PATIENT) 27.5 SECONDS (9.0-12.0)
== END | disposition home or self-care (01) ==
LOC: C.LABFOXMH 08:58
PROVIDERS: ATTEND Internal Medicine
DX: Z79.01 Long term (current) use of anticoagulants (principal); Z51.81 Encounter for therapeutic drug level monitoring

== ENCOUNTER → 2017-09-12 | Outpatient (CLI) | payer BC ==
[2017-09-12 09:27] LABS: INR 2.1 (0.9-1.1); PROTHROMBIN TIME (PATIENT) 23.4 SECONDS (9.0-12.0)
== END | disposition home or self-care (01) ==
LOC: C.LABFOXMH 08:50
PROVIDERS: ATTEND Internal Medicine
DX: Z79.01 Long term (current) use of anticoagulants (principal); Z51.81 Encounter for therapeutic drug level monitoring

== ENCOUNTER → 2017-09-26 | Outpatient (CLI) | payer BC ==
[~2017-09-26] MED LIST changes: -DILT180C58 PO; +DILT180C96 PO
[2017-09-26 08:33] LABS: INR 2.2 (0.9-1.1); PROTHROMBIN TIME (PATIENT) 22.9 SECONDS (9.0-12.0)
== END | disposition home or self-care (01) ==
LOC: C.LABFOXMH 07:40
PROVIDERS: ATTEND Internal Medicine
DX: Z51.81 Encounter for therapeutic drug level monitoring (principal); Z79.01 Long term (current) use of anticoagulants

== ENCOUNTER → 2017-10-17 | Outpatient (CLI) | payer BC ==
[2017-10-17 09:14] LABS: INR 2.3 (0.9-1.1)
== END | disposition home or self-care (01) ==
LOC: C.LABFOXMH 08:43
PROVIDERS: ATTEND Internal Medicine
DX: Z51.81 Encounter for therapeutic drug level monitoring (principal); Z79.01 Long term (current) use of anticoagulants

== ENCOUNTER → 2017-11-13 | Outpatient (CLI) | payer BC ==
[2017-11-13 14:38] LABS: HEMATOCRIT 41.4 % (37-47); HEMOGLOBIN 14.2 g/dL (12.0-16.0); MEAN CELL VOLUME 100.2 fL (80-100); MEAN CORPUSCULAR HEMOGLOBIN 34.4 pg (25-34); MEAN CORPUSCULAR HGB CONC 34.3 g/dl (32-36); MEAN PLATELET VOLUME 11.8 fL (7.4-10.4); PLATELET COUNT 206 K/uL (130-400); RED CELL DISTRIBUTION WIDTH CV 13.7 % (11.5-14.5); RED CELL DISTRIBUTION WIDTH SD 49.6 fL (36.4-46.3); WHITE BLOOD COUNT 8.42 K/uL (4.8-10.8)
[2017-11-13 15:20] LABS: AST/SGOT 19 U/L (15-37); BLOOD UREA NITROGEN 15 mg/dl (7-18); CALCIUM 8.9 mg/dl (8.5-10.1); CARBON DIOXIDE 28 mmol/L (21-32); CREATININE 0.59 mg/dl (0.60-1.20); GLUCOSE 104 mg/dl (70-99); POTASSIUM 3.6 mmol/L (3.5-5.1); SODIUM 138 mmol/L (136-145)
[2017-11-13 15:23] LABS: ALT/SGPT 23 U/L (12-78); CHOLESTEROL 148 mg/dl (0-200); LDL CHOLESTEROL CALCULATED 61 mg/dl
== END | disposition home or self-care (01) ==
LOC: C.LAB 13:36
PROVIDERS: ATTEND Internal Medicine Cardiovascular Disease
DX: I48.91 Unspecified atrial fibrillation (principal); I10 Essential (primary) hypertension; I25.10 Atherosclerotic heart disease of native coronary artery without angina pectoris; I83.90 Asymptomatic varicose veins of unspecified lower extremity

== ENCOUNTER → 2017-11-14 | Outpatient (CLI) | payer BC | END | disposition home or self-care (01) | LOC: C.LABFOXMH 08:49 | PROVIDERS: ATTEND Internal Medicine | DX: Z79.01 Long term (current) use of anticoagulants (principal) ==

== ENCOUNTER → 2017-12-12 | Outpatient (CLI) | payer BC ==
[2017-12-12 09:33] LABS: INR 2.1 (0.9-1.1)
== END | disposition home or self-care (01) ==
LOC: C.LABFOXMH 08:57
PROVIDERS: ATTEND Internal Medicine
DX: Z79.01 Long term (current) use of anticoagulants (principal)

== ENCOUNTER → 2018-01-09 | Outpatient (CLI) | payer BC ==
[2018-01-09 09:38] LABS: INR 1.4 (0.9-1.1)
== END | disposition home or self-care (01) ==
LOC: C.LABFOXMH 08:54
PROVIDERS: ATTEND Internal Medicine
DX: Z79.01 Long term (current) use of anticoagulants (principal)

== ENCOUNTER → 2018-01-23 | Outpatient (CLI) | payer BC ==
[~2018-01-23] MED LIST changes: -HYDR-5688 PO
[2018-01-23 08:46] LABS: INR 1.6 (0.9-1.1)
== END | disposition home or self-care (01) ==
LOC: C.LABFOXMH 08:03
PROVIDERS: ATTEND Internal Medicine
DX: Z79.01 Long term (current) use of anticoagulants (principal)

== ENCOUNTER → 2018-02-06 | Outpatient (CLI) | payer BC | END | disposition home or self-care (01) | LOC: C.LABFOXMH 08:03 | PROVIDERS: ATTEND Internal Medicine | DX: Z79.01 Long term (current) use of anticoagulants (principal) ==

== ENCOUNTER → 2018-02-20 | Outpatient (CLI) | payer BC ==
[2018-02-20 09:21] LABS: INR 2.8 (0.9-1.1)
== END | disposition home or self-care (01) ==
LOC: C.LABFOXMH 08:54
PROVIDERS: ATTEND Internal Medicine
DX: Z51.81 Encounter for therapeutic drug level monitoring (principal); Z79.01 Long term (current) use of anticoagulants

== ENCOUNTER → 2018-05-15 | Outpatient (CLI) | payer BC ==
--- NOTE | 2018-05-15 10:04 | DIAGNOSTIC IMAGING REPORT ---
DOUBLE CONTRAST BARIUM ESOPHAGRAM; DOUBLE CONTRAST UPPER GI SERIES; SMALL BOWEL FOLLOW-THROUGH CLINICAL HISTORY: Postprandial left upper quadrant abdominal pain. Diarrhea. Reported history of gastric ulcer. COMPARISON STUDY: Abdominal CT dated 09/13/2016. TECHNIQUE: [employer] Of [employer] Department fluoroscopic views of the abdomen were performed. Standard air contrast barium esophagram and upper GI series were then performed. Spot images of the esophagus and stomach were obtained in multiple obliquities both upright and prone. The patient then consumed several of thin barium and a small follow-through was performed. Overhead radiographs and spot compression images were obtained. FINDINGS: The patient swallowed barium without difficulty. The esophagus is structurally normal without evidence of intrinsic or extrinsic mass. The esophageal mucosal pattern is normal. No aspiration was observed. No gastroesophageal reflux was elicited by having the patient performed the Valsalva maneuver. The gastroesophageal junction distends normally. The stomach is normal in configuration and demonstrates normal distensibility. No mass or ulceration is identified. There was no evidence of gastritis. The duodenal bulb and sweep are unremarkable. On the small bowel follow-through, there is normal transit time with contrast identified in the colon at 45 minutes. There is significant fecal retention in the right colon. The small bowel mucosal pattern is normal. There is no evidence of stricture or mass. The distal/terminal ileum was normal as visualized on the spot compression views. Fluoroscopy time: 2.6 minutes. Fluoroscopic images: 32 IMPRESSION: 1. Normal barium esophagram and fluoroscopic upper GI series. 2. Normal small bowel follow-through. 3. Fecal retention is noted in the partially imaged right colon. Electronically signed by: Macho Blount M.D. 05/15/2018 10:02 AM Dictated Date/Time: 05/15/2018 9:59 AM
== END | disposition home or self-care (01) ==
LOC: C.RAD 07:35
PROVIDERS: ATTEND Internal Medicine Hospice and Palliative Medicine
DX: K59.00 Constipation, unspecified (principal)

== ENCOUNTER → 2018-05-18 | Outpatient (CLI) | payer BC ==
[~2018-05-18] MED LIST changes: +OPTIRAY 320 IV PRN
--- NOTE | 2018-05-18 14:37 | DIAGNOSTIC IMAGING REPORT ---
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 Several axial images were obtained through the mid abdomen. A dose lowering technique was utilized adhering to the principles of ALARA. COMPARISON STUDY: None. FINDINGS: There is extensive barium throughout the colon secondary to a prior upper GI study. The few axial images obtained indicate that a CT scan would be nondiagnostic due to streak artifact. The patient will be rescheduled for examination later next week. IMPRESSION: Extensive barium throughout the colon which precludes a diagnostic CT scan. The patient will be rescheduled. Electronically signed by: Mk Stephens M.D. 05/18/2018 2:35 PM Dictated Date/Time: 05/18/2018 2:34 PM
== END | disposition home or self-care (01) ==
LOC: C.CTS 13:03
PROVIDERS: ATTEND Internal Medicine Hospice and Palliative Medicine
DX: R19.00 Intra-abdominal and pelvic swelling, mass and lump, unspecified site (principal)

== ENCOUNTER → 2018-05-22 | Outpatient (CLI) | payer BC ==
[~2018-05-22] MED LIST changes: -OPTIRAY 320 IV PRN
[2018-05-22 10:43] LABS: HEMATOCRIT 41.7 % (37-47); HEMOGLOBIN 13.7 g/dL (12.0-16.0); MEAN CELL VOLUME 100.5 fL (80-100); MEAN CORPUSCULAR HGB CONC 32.9 g/dl (32-36); MEAN PLATELET VOLUME 12.1 fL (7.4-10.4); PLATELET COUNT 230 K/uL (130-400); RED CELL DISTRIBUTION WIDTH CV 13.8 % (11.5-14.5); RED CELL DISTRIBUTION WIDTH SD 50.6 fL (36.4-46.3); WHITE BLOOD COUNT 8.51 K/uL (4.8-10.8)
[2018-05-22 10:57] LABS: INR 2.3 (0.9-1.1)
[2018-05-22 10:59] LABS: ALBUMIN 3.3 gm/dl (3.4-5.0); ALKALINE PHOSPHATASE 121 U/L (45-117); ALT/SGPT 20 U/L (12-78); AST/SGOT 19 U/L (15-37); BLOOD UREA NITROGEN 12 mg/dl (7-18); CALCIUM 8.9 mg/dl (8.5-10.1); CARBON DIOXIDE 31 mmol/L (21-32); GLUCOSE 102 mg/dl (70-99); LIPASE 147 U/L (73-393); POTASSIUM 3.9 mmol/L (3.5-5.1); SODIUM 140 mmol/L (136-145)
== END | disposition home or self-care (01) ==
LOC: C.LABFOXMH 08:20
PROVIDERS: ATTEND Internal Medicine
DX: Z51.81 Encounter for therapeutic drug level monitoring (principal); Z79.899 Other long term (current) drug therapy; R10.9 Unspecified abdominal pain

== ENCOUNTER → 2018-05-25 | Outpatient (CLI) | payer BC ==
[~2018-05-25] MED LIST changes: +OPTIRAY 320 IV PRN
--- NOTE | 2018-05-25 16:47 | DIAGNOSTIC IMAGING REPORT ---
CT SCAN OF THE ABDOMEN AND PELVIS WITH IV CONTRAST CLINICAL HISTORY: Upper abdominal mass. Generalized abdominal pain. COMPARISON STUDY: Abdominal CT dated 09/13/2016. Chest CT dated 02/14/2014. TECHNIQUE: Following the IV administration of 95 cc of Optiray 320, CT scan of the abdomen and pelvis is performed from the lung bases to the proximal femora. Images are reviewed in the axial, sagittal, and coronal planes. IV contrast was administered without complication. A dose lowering technique was utilized adhering to the principles of ALARA. CT DOSE: 746.26 mGycm FINDINGS: Lung bases: The heart is enlarged and without pericardial effusion. The coronary arteries are densely calcified. There is lipomatous hypertrophy of the interatrial septum. A tiny hiatal hernia is noted. There are 2 pulmonary nodules measuring 4 mm seen in the right middle lobe on images #27 and #33. A 2 mm right upper lobe nodule is seen on image #2. A 5 mm right lower lobe nodule is seen on image #5. These have been present dating back to 2013 and are of doubtful significance. No airspace consolidation or pleural effusion is seen. Linear scarring/atelectasis is noted in the lingula. Liver: The contrast-enhanced liver is normal in size, contour, and attenuation. There is no intrahepatic biliary ductal dilatation. The hepatic veins and portal veins are patent. There is a 2.5 cm ovoid complex structure identified along the inferior margin of the liver near the hilum seen on image #124. Gallbladder: Unremarkable. Spleen: Normal in size and attenuation. Pancreas: Moderately atrophic and grossly unremarkable. Adrenal glands: Unremarkable. Kidneys: The contrast enhanced kidneys demonstrate cortical atrophy and are without hydronephrosis. The kidneys enhance symmetrically. Abdominal vasculature: The abdominal aorta is normal in course and caliber noting moderate atherosclerotic calcification. Bowel: There is advanced colonic diverticulosis without CT evidence of acute diverticulitis. No bowel obstruction is seen. Moderate colonic fecal retention is observed. The appendix is well-visualized and normal. Peritoneum: There is no intraperitoneal free air or abdominal ascites. Lymphadenopathy: None. Pelvic viscera: Evaluation of the pelvis is degraded by streak artifact from barium contrast within colonic diverticula. The bladder wall is thickened and trabeculated. There are small bladder diverticula. The uterus and adnexa are normal as visualized. Skeletal structures: The skeletal structures are osteopenic. Mild to moderate lumbosacral spondylosis is observed as well as mild scoliosis. No lytic or blastic lesions are seen. IMPRESSION: 1. There are no acute infectious or inflammatory findings in the abdomen or pelvis. 2. No mass lesion is identified to correspond to the finding of palpable concern. 3. There is a 2.5 cm ovoid complex structure along the inferior margin of the liver. This is pathologically indeterminant, but unchanged dating back to 2013 and of doubtful significance. This likely representing a cystic lesion such as a foregut cyst. 4. Cardiomegaly. 5. Additional findings as above. Electronically signed by: Macho Blount M.D. 05/25/2018 4:46 PM Dictated Date/Time: 05/25/2018 4:34 PM
== END | disposition home or self-care (01) ==
LOC: C.CTS 15:41
PROVIDERS: ATTEND Internal Medicine
DX: R10.9 Unspecified abdominal pain (principal)

== ENCOUNTER → 2018-05-31 | Outpatient (CLI) | payer BC ==
[~2018-05-31] MED LIST changes: -OPTIRAY 320 IV PRN
[2018-05-31 18:19] LABS: HEMATOCRIT 41.6 % (37-47); MEAN CELL VOLUME 98.8 fL (80-100); MEAN CORPUSCULAR HEMOGLOBIN 33.3 pg (25-34); MEAN CORPUSCULAR HGB CONC 33.7 g/dl (32-36); PLATELET COUNT 215 K/uL (130-400); RED CELL DISTRIBUTION WIDTH CV 13.4 % (11.5-14.5); RED CELL DISTRIBUTION WIDTH SD 48.6 fL (36.4-46.3); WHITE BLOOD COUNT 9.33 K/uL (4.8-10.8)
[2018-05-31 18:39] LABS: ALT/SGPT 22 U/L (12-78); AST/SGOT 21 U/L (15-37); BLOOD UREA NITROGEN 12 mg/dl (7-18); CALCIUM 8.6 mg/dl (8.5-10.1); CARBON DIOXIDE 31 mmol/L (21-32); CREATININE 0.54 mg/dl (0.60-1.20); GLUCOSE 137 mg/dl (70-99); POTASSIUM 3.6 mmol/L (3.5-5.1); SODIUM 140 mmol/L (136-145)
== END | disposition home or self-care (01) ==
LOC: C.LAB 16:59
PROVIDERS: ATTEND Internal Medicine Cardiovascular Disease
DX: I48.91 Unspecified atrial fibrillation (principal); E78.5 Hyperlipidemia, unspecified; I25.10 Atherosclerotic heart disease of native coronary artery without angina pectoris; I10 Essential (primary) hypertension

== ENCOUNTER 2022-06-13 12:25 | Inpatient (IN) ==
[2022-06-13] MEDS ORDERED: SODIUM CHLORIDE 0.9% 1000ML 500 ML IV ONE ×2 (12:37→15:18)
[2022-06-13 13:10] LABS: Basophils # (auto) 0.02 K/uL (0-0.2); Basophils % (auto) 0.1 %; Eosinophils # (auto) 0.01 K/uL (0-0.50); Eosinophils % (auto) 0.1 %; Hematocrit (blood only) 42.9 % (34.1-44.9); Hemoglobin 14.6 g/dl (12.0-16.0); Immature Granulocytes # (auto) 0.08 K/uL (0.00-0.02); Immature Granulocytes % (auto) 0.5 %; Lymphocytes # (auto) 0.99 K/uL (1.2-3.4); Lymphocytes % (auto) 6.1 %; Mean Platelet Volume 11.3 fL (9.4-12.3); Monocytes # (auto) 1.17 K/uL (0.24-0.82); Monocytes % (auto) 7.3 %; Neutrophils # (auto) 13.85 K/uL (1.4-6.5); Neutrophils % (auto) 85.9 %; Platelet Count 182 K/uL (130-400); RDW Coefficient of Variation 13.4 % (11.5-14.5); RDW Standard Deviation 49.2 fL (36.4-46.3); Red Blood Count 4.29 M/uL (3.93-5.22); White Blood Count 16.12 K/ul (4.8-10.8)
--- NOTE | 2022-06-13 13:18 | XRay Report ---
XR chest 1V portable CLINICAL HISTORY: SEPSIS TECHNIQUE: Single frontal radiograph of the chest was obtained. Comparison: Comparison is made to chest radiograph 02/21/2022 FINDINGS: No lines and tubes are seen. Cardiomegaly is noted. Reticular interstitial opacities are seen. No ever dence of pleural effusion or pneumothorax. Degenerative changes are seen in the spine and shoulder kay ints. IMPRESSION: No acute chest disease. ACT 112: Negative or not required by law. Electronically signed by: Isidro Romero M.D. 06/13/2022 1:15 PM
--- NOTE | 2022-06-13 13:21 | Emergency Department Note ---
Impression & Plan Acute ischemic cerebrovascular accident (CVA) involving right middle cerebral artery territory, Acute alteration in mental status, Acute urinary retention, Abnormal EKG, Atrial fibrillation with rapid ventricular response, Rhabdomyo lysis, Pressure ulcer ED Provider Note NAME: Yang SWIFT AGE: 82 SEX: F : 1940 ARRIVES VIA: Ambulance INFORMANT: Patient, EMS ED PROVIDER(S): Pedro Kaufman DO CHIEF COMPLAINT: Found on the floor HPI: The patient is an 82-year-old female who presented to the emergency department after being found on the floor at her personal snf. The history is very limited as the patient has been confused. The patient offers no complaints. According to the prehospital personnel as well as the nursing staff when she was initially evaluated complains and appears to be in pain with any movement but there was no deformity. The patient denies having any chest pain. She states she has have a bowel movement. She denies having any black or bloody bowels. She denies having any fever. She has had no recent trauma. It is unclear if she had a seizure or fell from a standing position. She was not complaining of any neck pain or back pain. There is no reported fever. The patient is normally awake and alert and lives in assisted living. He does have a history of atrial fibrillation and takes blood thinners. Reportedly she has been compliant with her outpatient medications. ROS: See above HPI for pertinent positives & negatives. A total of 10 systems reviewed and were otherwise negative. PAST MEDICAL HISTORY: See Below PAST SURGICAL HISTORY: See Below FAMILY HISTORY: See Below SOCIAL HISTORY: See Below HOME MEDICATIONS: See Below ALLERGIES: See Below VITALS: See Below PHYSICAL EXAMINATION: GENERAL: The patient is awake and looking around the room. She appears very anxious. EYES: The conjunctivae are clear. The pupils are round and reactive. EARS, NOSE, MOUTH AND THROAT: The nose is without any evidence of any deformity. Mucous membranes are dry. NECK: The neck is nontender and supple. RESPIRATORY: Diminished breath sounds are noted in the right lung field. There is no tachypnea. CARDIOVASCULAR: Irregular and tachycardic heart sounds were noted auscultation. There is no definite murmur. GASTROINTESTINAL: The abdomen is soft and mildly distended. There is no tenderness or rigidity. BACK: No midline tenderness or or step-off noted range of motion in flexion extension as well as rotation no signs of muscle spasm noted MUSCULOSKELETAL/EXTREMITIES: There is no evidence of gross deformity full range of motion is noted in the hips and shoulders. SKIN: Skin is warm and dry. Pedal edema was noted bilaterally. There is skin breakdown over the buttocks extending into the sacral region. NEUROLOGIC: Patient is awake and oriented to person but not place time or situation. Strength was symmetric but diminished. MEDICAL DECISION MAKING: The patient is an 82-year-old female who presented to the emergency department for an evaluation of altered mental status. The patient was found on the floor. It was unclear if she suffered any significant trauma but she was confused. According to her prehospital notification the patient lives in independent living so this would definitely be a change in her mental status. She had no unilateral symptoms although multiple times when I evaluated the patient she appeared to have ptosis in her left eye. I discussed patient's laboratory and radiographic studies with her and her family friend who presented to the emergency department to be with her. She appears have signs of a subacute age- indeterminate infarct in the right MCA distribution. This would represent a large amount of brain at risk. She would not be a candidate for thrombolytics given her use of oral anticoagulants as well as the last known well time being unknown. Given the amount of involved brain tissue I do not feel she would be a candidate for mechanical thrombectomy either. I discussed her condition with the on-call [facility] hospitalist. They have agreed to evaluate the patient in the emergency department for further management and disposition. Triage Nursing notes reviewed. Prior medical records reviewed Vital Signs: reviewed and remarkable for A. fib with RVR and intermittent hypotension. Differential diagnosis: Infection, hypoglycemia, electrolyte abnormalities, overdose, toxicologic, cardiac sources, intracerebral event, neurologic, trauma, as well as other pathologies. ER treatment provided: See below Diagnostics interpreted by me: ECG: EKG was obtained in the emergency department. My interpretation is atrial fibrillation at [address] segment depression with T wave abnormalities were noted in the apical inferior and low lateral leads. This was compared to a tracing from February 21, 2022. Significant changes including ST segment abnormalities have occurred. Cardiac Monitoring: An order was placed for continuous cardiac monitoring. The monitor shows a rate of 109 bpm with atrial fibrillation Laboratory studies: As stated above and show below. Imaging studies: See below Consultation(s): I discussed this case with Dr. Yan who is on-call for the [facility] hospitalist group. ED COURSE: Procedures: none PDMP:reviewed and no issues Critical Care: I have personally spent greater than 45 minutes of critical care time in the d irect management of this patient. This includes bedside care, interpretation of diagnostic studies, and testing, discussion with consultants, patient, and family members, and other required patient management activities. This 45 minutes is in excess of all separately billable procedures. Past Med/Surg History Medical History (Updated 06/13/22 @ 18:07 by Shena Franco PA-C) Abnormal coagulation profile Anticoagulant long-term use Arthritis Asthma Asthma no inh Atrial fibrillation Atrial fibrillation, permanent dx 2003 - on Rivaroxaban Breast cancer recent Dx Breast neoplasm, Tis (LCIS) CAD (coronary artery disease) non-obstructive CAD in [place] artery Cardiomegaly COPD (chronic obstructive pulmonary disease) Decreased exercise tolerance Depression Dyslipidemia Encounter for pre-operative examination Fatigue Generalized abdominal pain Hearing deficit B/L SPARKS History of migraine Hyperlipidemia Hypertension Hypothyroidism Insomnia Left breast mass Lumbago Major depressive disorder, single episode, mild Muscle spasm Neuroendocrine tumor Obstructive sleep apnea Orthostatic hypotension Papilloma of breast Papilloma of left breast Pre-op exam Scoliosis Sensorineural hearing loss (SNHL) of both ears Sleep apnea Sleep apnea CPAP Varicose vein of leg Surgical History H/O cataract removal with insertion of prosthetic lens History of breast biopsy History of cardiac catheterization X2: 2003 & 2005 - NO STENTS History of cardioversion History of cataract surgery History of colonoscopy History of lumpectomy of left breast Left breast lumpectomy with needle loc: 07/11/17: LMA#4 at [facility] History of tooth extraction History of total right knee replacement S/P lumpectomy, left breast (12/19/19) Left Breast Lumpectomy With Needle Localization Dr. Dodson 12/19/19 Family History Mother Diabetes Heart disease Hypertension Stroke Father Colon cancer Other Family history non-contributory No family history of adverse response to anesthesia Social History Smoking Status: Unknown if ever smoked Second Hand Exposure: Yes (as a child); Hx Alcohol Use: Yes Alcohol type: wine and hard liquor Alcohol type Comment: scotch Alcohol Intake Frequency: 2-4 x/Month Hx Substance Use: No Preferred Language: Slovenian Communication Ability: Effective Visual Impairment: No Limitations Hearing Ability: Use of Hearing Aid Clay Worker Required: No Beliefs That Will Affect Care: None marital status: Single Current Living Situation: Alone and Personal Care Facility Current Living Situation Comment: [facility] - independent living current occupational status: retired 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 Other Information That Helps Us Care for You: No Feels Safe at Home: Yes Safety Concerns: Feels Safe At This Time Childhood Exposure to Second-Hand Smoke: Yes Diet Comment: lower CHO, no red meat caffeine: Yes (one coffee in am, coke 8 oz/day) during the past year weight has: decreased > 10 lbs Dental Care, Regularly: No Physical Activity Frequency: 1-2 Times per Week Physical Activity Frequency Comment: walks her dog, and exercises moderately, used to swim Seatbelt Use: always Sunscreen Use: Yes Assistive Devices: Cane, CPAP, Denture - Upper, Denture - Lower, Glasses, Hearing Aid - Bilateral and Walker Allergies Allergies Allergy/AdvReac Type Severity Reaction Status Date / Time sodium benzoate Allergy Unknown migraine Verified 06/13/22 15:48 Sulfa (Sulfonamide Allergy Unknown rash Verified 06/13/22 15:48 Antibiotics) Home Meds Home Medications Medication Instructions Recorded Confirmed digoxin 125 mcg (0.125 mg) tablet 125 mcg PO QAM 11/27/19 06/13/22 (Digox) potassium chloride 10 mEq 10 meq PO QPM 11/29/19 06/13/22 tablet,extended release temazepam 15 mg capsule 15 mg PO HS PRN sleep 11/29/19 06/13/22 diltiazem HCl 180 mg 180 mg PO QAM 12/02/19 06/13/22 capsule,extended release 24 hr (Cardizem CD) levothyroxine 75 mcg capsule 75 mcg PO QAM 12/02/19 06/13/22 ramipril 5 mg capsule 5 mg PO QAM 12/02/19 06/13/22 venlafaxine 75 mg capsule,extended 75 mg PO QPM 12/02/19 06/13/22 release 24 hr (Effexor XR) tamoxifen 20 mg tablet 20 mg PO DAILY 03/26/21 06/13/22 albuterol sulfate 90 mcg/actuation 2 puff inhalation QID 06/13/22 06/13/22 aerosol inhaler venlafaxine 37.5 mg 37.5 mg PO PM 06/13/22 06/13/22 capsule,extended release 24 hr (Effexor XR) Previous Rx's Medication Instructions Recorded atorvastatin 20 mg tablet 20 mg PO QPM #90 tabs 08/16/19 rivaroxaban 20 mg tablet (Xarelto) 20 mg PO QPM #90 tabs 12/16/21 Results & Data (ED) Vital Signs Vital Signs - 24 hr 06/13/22 12:55 06/13/22 12:55 06/13/22 12:34 Temperature 37.7 C H Temperature Source Rectal Pulse Rate 128 H 122 H Pulse Rate from SpO2 Sensor Pulse Rhythm Regular Pulse Strength Normal Respiratory Rate 20 18 Respiratory Effort / Characteristics Non-Labored Spontaneous Respiratory Depth Normal Respiratory Pattern Regular Blood Pressure 147/100 H Blood Pressure Mean 115 Blood Pressure Position Lying Pulse Oximetry 97 Oxygen Delivery Method Room Air Room Air Sepsis Recent Fever Within 48 Hours Yes Sepsis New/Unexplained Change in Mental Status N/A Sepsis Action Taken by Nursing No Action Required 06/13/22 12:37 06/13/22 13:00 06/13/22 13:00 Temperature Temperature Source Pulse Rate 124 H 117 H Pulse Rate from SpO2 Sensor 112 H Pulse Rhythm Pulse Strength Respiratory Rate 22 Respiratory Effort / Characteristics Respiratory Depth Respiratory Pattern Blood Pressure 147/100 H Blood Pressure Mean 115 Blood Pressure Position Pulse Oximetry 95 Oxygen Delivery Method Sepsis Recent Fever Within 48 Hours Sepsis New/Unexplained Change in Mental Status Sepsis Action Taken by Nursing 06/13/22 13:30 06/13/22 14:00 06/13/22 14:45 Temperature Temperature Source Pulse Rate 94 H 116 H Pulse Rate from SpO2 Sensor Pulse Rhythm Pulse Strength Respiratory Rate 20 23 Respiratory Effort / Characteristics Respiratory Depth Respiratory Pattern Blood Pressure 132/59 L Blood Pressure Mean 83 Blood Pressure Position Pulse Oximetry Oxygen Delivery Method Sepsis Recent Fever Within 48 Hours Sepsis New/Unexplained Change in Mental Status Sepsis Action Taken by Nursing 06/13/22 14:45 06/13/22 15:00 06/13/22 12:15 Temperature Temperature Source Pulse Rate 130 H 108 H Pulse Rate from SpO2 Sensor Pulse Rhythm Pulse Strength Respiratory Rate 25 H 31 H 16 Respiratory Effort / Characteristics Non-Labored Respiratory Depth Normal Respiratory Pattern Blood Pressure Blood Pressure Mean Blood Pressure Position Pulse Oximetry 98 Oxygen Delivery Method Room Air Sepsis Recent Fever Within 48 Hours Sepsis New/Unexplained Change in Mental Status Sepsis Action Taken by Correction Medications Current Medication List: was personally reviewed by me Laboratory Data Attestation: I reviewed the patient's lab results. Result diagrams: 06/14/22 04:32 06/14/22 04:32 Lab Results 06/13/22 06/13/22 06/13/22 Range/Units 12:55 12:55 12:55 WBC 16.12 H (4.8-10.8) K/ul RBC 4.29 (3.93-5.22) M/uL Hgb 14.6 (12.0-16.0) g/dl Hct 42.9 (34.1-44.9) % MCV 100.0 (80.0-100.0) fL MCH 34.0 (25.0-34.0) pg MCHC 34.0 (32.0-36.0) g/dL RDW Std Deviation 49.2 H (36.4-46.3) fL RDW Coeff of Colleen 13.4 (11.5-14.5) % Plt Count 182 (130-400) K/uL MPV 11.3 (9.4-12.3) fL Immature Gran % (Auto) 0.5 % Neut % (Auto) 85.9 % Lymph % (Auto) 6.1 % [place] % (Auto) 7.3 % Eos % (Auto) 0.1 % Baso % (Auto) 0.1 % Neut # (Auto) 13.85 H (1.4-6.5) K/uL Lymph # (Auto) 0.99 L (1.2-3.4) K/uL [place] # (Auto) 1.17 H (0.24-0.82) K/uL Eos # (Auto) 0.01 (0-0.50) K/uL Baso # (Auto) 0.02 (0-0.2) K/uL Immature Gran # (Auto) 0.08 H (0.00-0.02) K/uL PT Cancelled INR Cancelled APTT Cancelled PTT Ratio Cancelled VBG pH (7.36-7.41) VBG pCO2 (38-50) mmHg VBG pO2 mmHg VBG HCO3 mmol/L VBG O2 Saturation % VBG Base Excess mEq/L Sodium 139 (136-145) mmol/L Potassium 3.9 (3.5-5.1) mmol/L Chloride 104 (98-107) mmol/L Carbon Dioxide 26 (21-32) mmol/L Anion Gap 9 (3-11) BUN 28 H (6-23) mg/dl Creatinine 0.72 (0.6-1.2) mg/dl Est Cr Clr Drug Dosing Not Reportable Est GFR ( Amer) 89.8 ml/min Est GFR (Non-Af Amer) 77.4 ml/min BUN/Creatinine Ratio 38.9 H (10-20) Glucose 142 H (70-99(Fasting)) mg/dl Lactate (0.4-2.0) mmol/L Calcium 9.4 (8.5-10.1) mg/dl Magnesium 2.0 (1.7-2.4) mg/dl Total Bilirubin 1.6 H (0.2-1.0) mg/dl AST 65 H (13-39) U/L ALT 26 (7-52) U/L Alkaline Phosphatase 66 (34-104) U/L Total Creatine Kinase 1274 H (26-192) U/L Troponin I High Sens 45.4 H (0-14) pg/ml Total Protein 7.3 (6.0-8.3) gm/dl Albumin 3.8 (3.4-5.0) gm/dl Globulin 3.5 (2.5-4.0) gm/dl Albumin/Globulin Ratio 1.1 (0.9-2) Procalcitonin (0-0.5) ng/ml Urine Color Urine Appearance (Clear) Urine pH (4.5-7.5) Ur Specific Success (1.000-1.030) Urine Protein (Negative) Urine Glucose (UA) (Negative) Urine Ketones (Negative) Urine Blood (Negative) Urine Nitrite (Negative) Urine Bilirubin (Negative) Urine Urobilinogen (Negative) Ur Leukocyte Esterase (Negative) Urine WBC (Auto) (0-5) /hpf Urine RBC (Auto) (0-4) /hpf U Hyaline Cast (Auto) (0-5) /lpf U Epithel Cells (Auto) (0-5) /lpf Urine Bacteria (Auto) (Negative) Digoxin (0.8-2.0) ng/ml SARS-CoV-2, RNA, NAAT (NEGATIVE) 06/13/22 06/13/22 06/13/22 Range/Units 12:55 12:55 13:05 WBC (4.8-10.8) K/ul RBC (3.93-5.22) M/uL Hgb (12.0-16.0) g/dl Hct (34.1-44.9) % MCV (80.0-100.0) fL MCH (25.0-34.0) pg MCHC (32.0-36.0) g/dL RDW Std Deviation (36.4-46.3) fL RDW Coeff of Colleen (11.5-14.5) % Plt Count (130-400) K/uL MPV (9.4-12.3) fL Immature Gran % (Auto) % Neut % (Auto) % Lymph % (Auto) % [place] % (Auto) % Eos % (Auto) % Baso % (Auto) % Neut # (Auto) (1.4-6.5) K/uL Lymph # (Auto) (1.2-3.4) K/uL [place] # (Auto) (0.24-0.82) K/uL Eos # (Auto) (0-0.50) K/uL Baso # (Auto) (0-0.2) K/uL Immature Gran # (Auto) (0.00-0.02) K/uL PT INR APTT PTT Ratio VBG pH 7.53 H (7.36-7.41) VBG pCO2 31 L (38-50) mmHg VBG pO2 11 mmHg VBG HCO3 26 mmol/L VBG O2 Saturation < 60.0 % VBG Base Excess 3.7 mEq/L Sodium (136-145) mmol/L Potassium (3.5-5.1) mmol/L Chloride (98-107) mmol/L Carbon Dioxide (21-32) mmol/L Anion Gap (3-11) BUN (6-23) mg/dl Creatinine (0.6-1.2) mg/dl Est Cr Clr Drug Dosing Est GFR ( Amer) ml/min Est GFR (Non-Af Amer) ml/min BUN/Creatinine Ratio (10-20) Glucose (70-99(Fasting)) mg/dl Lactate 2.3 H* (0.4-2.0) mmol/L Calcium (8.5-10.1) mg/dl Magnesium (1.7-2.4) mg/dl Total Bilirubin (0.2-1.0) mg/dl AST (13-39) U/L ALT (7-52) U/L Alkaline Phosphatase (34-104) U/L Total Creatine Kinase (26-192) U/L Troponin I High Sens (0-14) pg/ml Total Protein (6.0-8.3) gm/dl Albumin (3.4-5.0) gm/dl Globulin (2.5-4.0) gm/dl Albumin/Globulin Ratio (0.9-2) Procalcitonin 0.09 (0-0.5) ng/ml Urine Color Urine Appearance (Clear) Urine pH (4.5-7.5) Ur Specific Success (1.000-1.030) Urine Protein (Negative) Urine Glucose (UA) (Negative) Urine Ketones (Negative) Urine Blood (Negative) Urine Nitrite (Negative) Urine Bilirubin (Negative) Urine Urobilinogen (Negative) Ur Leukocyte Esterase (Negative) Urine WBC (Auto) (0-5) /hpf Urine RBC (Auto) (0-4) /hpf U Hyaline Cast (Auto) (0-5) /lpf U Epithel Cells (Auto) (0-5) /lpf Urine Bacteria (Auto) (Negative) Digoxin (0.8-2.0) ng/ml SARS-CoV-2, RNA, NAAT (NEGATIVE) 06/13/22 06/13/22 06/13/22 Range/Units 13:06 13:13 13:38 WBC (4.8-10.8) K/ul RBC (3.93-5.22) M/uL Hgb (12.0-16.0) g/dl Hct (34.1-44.9) % MCV (80.0-100.0) fL MCH (25.0-34.0) pg MCHC (32.0-36.0) g/dL RDW Std Deviation (36.4-46.3) fL RDW Coeff of Colleen (11.5-14.5) % Plt Count (130-400) K/uL MPV (9.4-12.3) fL Immature Gran % (Auto) % Neut % (Auto) % Lymph % (Auto) % [place] % (Auto) % Eos % (Auto) % Baso % (Auto) % Neut # (Auto) (1.4-6.5) K/uL Lymph # (Auto) (1.2-3.4) K/uL [place] # (Auto) (0.24-0.82) K/uL Eos # (Auto) (0-0.50) K/uL Baso # (Auto) (0-0.2) K/uL Immature Gran # (Auto) (0.00-0.02) K/uL PT INR APTT PTT Ratio VBG pH (7.36-7.41) VBG pCO2 (38-50) mmHg VBG pO2 mmHg VBG HCO3 mmol/L VBG O2 Saturation % VBG Base Excess mEq/L Sodium (136-145) mmol/L Potassium (3.5-5.1) mmol/L Chloride (98-107) mmol/L Carbon Dioxide (21-32) mmol/L Anion Gap (3-11) BUN (6-23) mg/dl Creatinine (0.6-1.2) mg/dl Est Cr Clr Drug Dosing Est GFR ( Amer) ml/min Est GFR (Non-Af Amer) ml/min BUN/Creatinine Ratio (10-20) Glucose (70-99(Fasting)) mg/dl Lactate (0.4-2.0) mmol/L Calcium (8.5-10.1) mg/dl Magnesium (1.7-2.4) mg/dl Total Bilirubin (0.2-1.0) mg/dl AST (13-39) U/L ALT (7-52) U/L Alkaline Phosphatase (34-104) U/L Total Creatine Kinase (26-192) U/L Troponin I High Sens (0-14) pg/ml Total Protein (6.0-8.3) gm/dl Albumin (3.4-5.0) gm/dl Globulin (2.5-4.0) gm/dl Albumin/Globulin Ratio (0.9-2) Procalcitonin (0-0.5) ng/ml Urine Color Dark Yellow Urine Appearance Clear (Clear) Urine pH 6.0 (4.5-7.5) Ur Specific Success 1.022 (1.000-1.030) Urine Protein Trace H (Negative) Urine Glucose (UA) Negative (Negative) Urine Ketones 2+ H (Negative) Urine Blood Negative (Negative) Urine Nitrite Negative (Negative) Urine Bilirubin Negative (Negative) Urine Urobilinogen Negative (Negative) Ur Leukocyte Esterase Negative (Negative) Urine WBC (Auto) 1-5 (0-5) /hpf Urine RBC (Auto) 0-4 (0-4) /hpf U Hyaline Cast (Auto) 1-5 (0-5) /lpf U Epithel Cells (Auto) >30 H (0-5) /lpf Urine Bacteria (Auto) Negative (Negative) Digoxin < 0.3 L (0.8-2.0) ng/ml SARS-CoV-2, RNA, NAAT NEGATIVE (NEGATIVE) 06/13/22 06/13/22 Range/Units 14:51 14:51 WBC (4.8-10.8) K/ul RBC (3.93-5.22) M/uL Hgb (12.0-16.0) g/dl Hct (34.1-44.9) % MCV (80.0-100.0) fL MCH (25.0-34.0) pg MCHC (32.0-36.0) g/dL RDW Std Deviation (36.4-46.3) fL RDW Coeff of Colleen (11.5-14.5) % Plt Count (130-400) K/uL MPV (9.4-12.3) fL Immature Gran % (Auto) % Neut % (Auto) % Lymph % (Auto) % [place] % (Auto) % Eos % (Auto) % Baso % (Auto) % Neut # (Auto) (1.4-6.5) K/uL Lymph # (Auto) (1.2-3.4) K/uL [place] # (Auto) (0.24-0.82) K/uL Eos # (Auto) (0-0.50) K/uL Baso # (Auto) (0-0.2) K/uL Immature Gran # (Auto) (0.00-0.02) K/uL PT 12.8 H INR 1.2 H APTT 26.6 PTT Ratio 1.0 VBG pH (7.36-7.41) VBG pCO2 (38-50) mmHg VBG pO2 mmHg VBG HCO3 mmol/L VBG O2 Saturation % VBG Base Excess mEq/L Sodium (136-145) mmol/L Potassium (3.5-5.1) mmol/L Chloride (98-107) mmol/L Carbon Dioxide (21-32) mmol/L Anion Gap (3-11) BUN (6-23) mg/dl Creatinine (0.6-1.2) mg/dl Est Cr Clr Drug Dosing Est GFR ( Amer) ml/min Est GFR (Non-Af Amer) ml/min BUN/Creatinine Ratio (10-20) Glucose (70-99(Fasting)) mg/dl Lactate 1.8 (0.4-2.0) mmol/L Calcium (8.5-10.1) mg/dl Magnesium (1.7-2.4) mg/dl Total Bilirubin (0.2-1.0) mg/dl AST (13-39) U/L ALT (7-52) U/L Alkaline Phosphatase (34-104) U/L Total Creatine Kinase (26-192) U/L Troponin I High Sens (0-14) pg/ml Total Protein (6.0-8.3) gm/dl Albumin (3.4-5.0) gm/dl Globulin (2.5-4.0) gm/dl Albumin/Globulin Ratio (0.9-2) Procalcitonin (0-0.5) ng/ml Urine Color Urine Appearance (Clear) Urine pH (4.5-7.5) Ur Specific Success (1.000-1.030) Urine Protein (Negative) Urine Glucose (UA) (Negative) Urine Ketones (Negative) Urine Blood (Negative) Urine Nitrite (Negative) Urine Bilirubin (Negative) Urine Urobilinogen (Negative) Ur Leukocyte Esterase (Negative) Urine WBC (Auto) (0-5) /hpf Urine RBC (Auto) (0-4) /hpf U Hyaline Cast (Auto) (0-5) /lpf U Epithel Cells (Auto) (0-5) /lpf Urine Bacteria (Auto) (Negative) Digoxin (0.8-2.0) ng/ml SARS-CoV-2, RNA, NAAT (NEGATIVE) Administered Medications Atorvastatin Calcium (Atorvastatin 20 Mg Tab) 20 mg PO QPM JORDAN Stop: 07/13/22 20:59 Last Admin: 06/13/22 20:46 Dose: 20 mg Documented By: KIARRA Enalapril Maleate (Enalapril Maleate 10 Mg Tab) 20 mg PO QAM JORDAN Stop: 07/13/22 18:46 Last Admin: 06/13/22 20:47 Dose: 20 mg Documented By: KIARRA Diltiazem HCl 125 mg/ Dextrose 125 mls @ 5 mls/hr IV .Q24H JORDAN; Protocol Stop: 07/13/22 16:29 Last Titration: 06/14/22 00:00 Dose: 5 mg/hr, 5 mls/hr Documented By: KIARRA Co-signed By: CLC Titration: 06/13/22 19:00 Dose: 10 mg/hr, 10 mls/hr Documented By: KIARRA Co-signed By: CLC Admin: 06/13/22 16:39 Dose: 5 mg/hr, 5 mls/hr Documented By: Co-signed By: SENA Lactated Ringer's (Lr) 1,000 mls @ 125 mls/hr IV .Q8H JORDAN Stop: 07/13/22 18:46 Last Admin: 06/14/22 03:59 Dose: 125 mls/hr Documented By: Infusion: 06/14/22 03:15 Dose: 125 mls/hr Documented By: Admin: 06/13/22 19:15 Dose: 125 mls/hr Documented By: KIARRA Levothyroxine Sodium (Levothyroxine Sodium 75 Mcg Tablet) 75 mcg PO DAILYBB JORDAN Stop: 07/14/22 06:29 Last Admin: 06/14/22 06:10 Dose: Not Given Documented By: KIARRA Potassium Chloride (Potassium Chloride 10 Meq Tabcr) 10 meq PO QPM JORDAN Stop: 07/13/22 20:59 Last Admin: 06/13/22 20:46 Dose: 10 meq Documented By: KIARRA Venlafaxine HCl (Venlafaxine Hcl Xr 75 Mg Capxr) 75 mg PO QPM JORDAN Stop: 07/13/22 20:59 Last Admin: 06/13/22 20:47 Dose: 75 mg Documented By: KIARRA Discontinued Medications Aspirin (Aspirin 300 Mg Supp) 300 mg AR ONE ONE Stop: 06/13/22 16:09 Last Admin: 06/13/22 16:39 Dose: 300 mg Documented By: Gadobutrol (Gadobutrol 65ml Vial) 6 ml IV ONCE ONE Stop: 06/13/22 21:40 Last Admin: 06/13/22 21:39 Dose: 6 ml Documented By: ANGELINA Sodium Chloride (Nss 1000ml) 500 mls @ 999 mls/hr IV .Q31M ONE Stop: 06/13/22 13:07 Last Infusion: 06/13/22 13:45 Dose: 0 mls/hr Documented By: Admin: 06/13/22 13:10 Dose: 999 mls/hr Documented By: CINTIA Sodium Chloride (Nss 1000ml) 500 mls @ 999 mls/hr IV .Q31M ONE Stop: 06/13/22 15:48 Last Infusion: 06/13/22 16:55 Dose: 0 mls/hr Documented By: Admin: 06/13/22 15:26 Dose: 999 mls/hr Documented By: CINTIA Ioversol (Optiray 300 500ml) 118 ml IV ONCE ONE Stop: 06/13/22 22:07 Last Admin: 06/13/22 22:06 Dose: 118 ml Documented By: SKYLER Morphine Sulfate (Morphine Sulfate 2 Mg/Ml Carp) 1 mg IV NOW STA Stop: 06/14/22 00:28 Last Admin: 06/14/22 00:40 Dose: 1 mg Documented By: KIARRA Imaging Data Radiologist's Impression: Abdomen/Pelvis CT 06/13/22 12:37 CT SCAN OF THE ABDOMEN AND PELVIS WITHOUT IV CONTRAST CLINICAL HISTORY: Fall. Change in mental status. COMPARISON STUDY: Abdominal CT dated 05/25/2018. TECHNIQUE: CT scan of the abdomen and pelvis is performed from the lung bases to the proximal femora. Images are reviewed in the axial, sagittal, and coronal planes. IV contrast was not administered for this examination. Note that the examination is significantly suboptimal without oral and IV contrast. There is also motion artifact, as well as streak artifact from the arms which could not be elevated above the abdomen. A dose lowering technique was utilized adhering to the principles of ALARA. CT DOSE: 1264.05 mGy.cm FINDINGS: Lung bases: The heart is enlarged and without pericardial effusion. The pulmonary arteries is densely calcified. There is a small hiatal hernia. The lung bases are clear noting bibasilar scarring/atelectasis. Liver: Evaluation of the liver are significantly degraded by streak artifact. The unenhanced liver is normal in size, contour, and attenuation. There is no intrahepatic biliary ductal dilatation. A 2.3 cm ovoid nearly isodense structure along the inferior margin of liver is unchanged. Gallbladder: Unremarkable. Spleen: Normal in size and attenuation. Pancreas: The unenhanced pancreas is moderately atrophic and grossly unremarkable. Adrenal glands: Unremarkable. Kidneys: The unenhanced kidneys are normal in size. There is mild to moderate bilateral hydroureteronephrosis, likely related to the greater bladder distention. There are least 2 punctate nonobstructing left renal calculi. A single punctate calculus is seen on the right. There is no evidence of contour deforming renal mass lesion. Abdominal vasculature: The abdominal aorta is normal in course and caliber noting advanced atherosclerotic calcification. Bowel: There is advanced colonic diverticulosis without CT evidence of acute diverticulitis. No bowel obstruction is identified. Mild fecal retention is seen throughout the colon. The appendix is normal as imaged. Peritoneum: There is no intraperitoneal free air or abdominal ascites. Lymphadenopathy: None. Pelvic viscera: The bladder is markedly distended. A 2.5 cm bladder diverticulum is seen along the right superior aspect of the bladder wall on image #300. The uterus and adnexa are normal as visualized. Skeletal structures: The skeletal structures are osteopenic. The lumbosacral spine, bony pelvis, and proximal femora appear intact. There is moderate lumbosacral spondylosis and scoliosis. Advanced arthritic change is seen in the hips. No lytic or blastic lesions are seen. IMPRESSION: 1. Significantly suboptimal examination without oral or IV contrast. There is also streak and motion artifact. 2. There is no evidence of solid organ injury in the abdomen or pelvis on this unenhanced examination. 3. Severe bladder distention. 4. Moderate bilateral hydroureteronephrosis is likely related to bladder distention. 5. Cardiomegaly. 6. Advanced colonic diverticulosis without CT evidence of acute diverticulitis. 7. Bilateral nephrolithiasis. 8. Additional findings as above. ACT 112: Negative or not required by law. Electronically signed by: Macho Blount M.D. 06/13/2022 2:[address] 06/13/22 12:37 CT cervical spine wo con CLINICAL HISTORY: fall TECHNIQUE: Multidetector row helical CT of the cervical spine was performed without administration of intravenous contrast. Coronal and sagittal reformations were obtained. Automated dose lowering techniques and/or adjustment according to patient size were utilized for this exam. Comparison: None available at the time of this dictation. FINDINGS: No acute fractures or subluxations are identified. Degenerative changes are seen in the visualized spine. Likely old calcific densities are seen for example at the spinous process of C5 or at the left transverse process of C5. Prominent lordosis of the cervical spine is seen, likely chronic. A calcific density to the right of C1 is likely chronic. Partial visualization of bilateral carotid bulb calcifications. IMPRESSION: Prominent degenerative changes without evidence of acute fracture. ACT 112: Negative or not required by law. Electronically signed by: Isidro Romero M.D. 06/13/2022 2:50 PM Chest X-Ray 06/13/22 12:37 XR chest 1V portable CLINICAL HISTORY: SEPSIS TECHNIQUE: Single frontal radiograph of the chest was obtained. Comparison: Comparison is made to chest radiograph 02/21/2022 FINDINGS: No lines and tubes are seen. Cardiomegaly is noted. Reticular interstitial opacities are seen. No evidence of pleural effusion or pneumothorax. Degenerative changes are seen in the spine and shoulder joints. IMPRESSION: No acute chest disease. ACT 112: Negative or not required by law. Electronically signed by: Isidro Romero M.D. 06/13/2022 1:[address] 06/13/22 12:37 CT OF THE HEAD WITHOUT CONTRAST CLINICAL HISTORY: Fall. COMPARISON STUDY: MRI of the brain June 22, 2021. Head CT February 21, 2022. TECHNIQUE: Helical axial images of the head were obtained without IV contrast. Automated exposure control was utilized for the study. A dose lowering technique was utilized adhering to the principles of ALARA. FINDINGS: No acute intracranial hemorrhage is present. Note is made of a new 7 x 2.9 cm hypodense focus with loss of byrne-white differentiation within the right temporal lobe. This was not present on CT of February 21, 2022. There is no significant mass effect. White matter hypodensity suggests small vessel disease. Ventricular system is normal. Basal cisterns are patent. There are no extra axial collections. A 1.7 cm lytic right parietal bone lesion on axial image 2428 is noted. This is unchanged since CT of February 21, 2022. This is new since head CT of July 06, 2020. Right upper neck and occipital edema is incidentally noted. IMPRESSION: 1. No acute intracranial hemorrhage. No acute calvarial fracture. 2. 7 x 2.9 cm hypodense focus with loss of byrne-white differentiation within the right temporal lobe which is new since head CT of February 21, 2022. Although age indeterminate, the appearance favors a large subacute right MCA territory infarct. Imaging follow-up is recommended to ensure expected evolution is recommended. ACT 112: Negative or not required by law. Electronically signed by: Ramin Alfaro M.D. 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, Acute alteration in mental status, Acute urinary retention, Abnormal EKG, Atrial fibrillation with rapid ventricular response, Rhabdomy olysis, Pressure ulcer Patient Disposition: Admitted As Inpatient Discharge Instructions Interventions: ED Discharge Assessment Last Done: 06/13/22 17:38 : Rhabdomyolysis Qualifiers: Rhabdomyolysis type: non-traumatic Qualified Code(s): M62.82 - Rhabdomyolysis Pressure ulcer Qualifiers: Pressure injury location: buttock Pressure injury stage: stage 1 Laterality: unspecified laterality Qualified Code(s): L89.301 - Pressure ulcer of unspecified buttock, stage 1
[2022-06-13 13:29] LABS: Albumin Level 3.8 gm/dl (3.4-5.0); Anion Gap 9 (3-11); Bilirubin,Total 1.6 mg/dl (0.2-1.0); Calcium 9.4 mg/dl (8.5-10.1); Carbon Dioxide 26 mmol/L (21-32); Chloride 104 mmol/L (98-107); Potassium 3.9 mmol/L (3.5-5.1); Sodium 139 mmol/L (136-145)
[2022-06-13 13:32] LABS: Base Excess VBG 3.7 mEq/L; HCO3 VBG 26 mmol/L; Oxygen Saturation VBG < 60.0 %; PCO2 VBG 31 mmHg (38-50); PO2 VBG 11 mmHg; pH VBG 7.53 (7.36-7.41)
[2022-06-13 13:35] LABS: Alanine Aminotransferase 26 U/L (7-52); Albumin Globulin Ratio 1.1 (0.9-2); Alkaline Phosphatase 66 U/L (34-104); Aspartate Aminotransferase 65 U/L (13-39); BUN Creatinine Ratio 38.9 (10-20); Blood Urea Nitrogen 28 mg/dl (6-23); Creatine Kinase 1274 U/L (26-192); Est GFR (African American) 89.8 ml/min; Est GFR (Non-African American) 77.4 ml/min; Globulin 3.5 gm/dl (2.5-4.0); Glucose 142 mg/dl (70-99(Fasting)); Total Protein 7.3 gm/dl (6.0-8.3)
[2022-06-13 13:47] LABS: Troponin I High Sensitivity 45.4 pg/ml (0-14)
[2022-06-13 13:59] LABS: Appearance Urine Clear (Clear); Bacteria Urine Automated Negative (Negative); Bilirubin Urine Negative (Negative); Blood Urine Negative (Negative); Color Urine Dark Yellow; Epithelial Cell Urine Auto >30 /lpf (0-5); Glucose Urine UA Negative (Negative); Ketones Urine 2+ (Negative); Leukocyte Esterase Urine Negative (Negative); Nitrite Urine Negative (Negative); Protein Urine Trace (Negative); RBC Urine Automated 0-4 /hpf (0-4); Specific Gravity Urine 1.022 (1.000-1.030); Urobilinogen Urine Negative (Negative)
--- NOTE | 2022-06-13 14:51 | CT Scan Report ---
CT cervical spine wo con CLINICAL HISTORY: fall TECHNIQUE: Multidetector row helical CT of the cervical spine was performed without administration of intravenous contrast. Coronal and sagittal reformations were obtained. Automated dose lowering techn iques and/or adjustment according to patient size were utilized for this exam. Comparison: None available at the time of this dictation. FINDINGS: No acute fractures or subluxations are identified. Degenerative changes are seen in the visualized sp ine. Likely old calcific densities are seen for example at the spinous process of C5 or at the left t ransverse process of C5. Prominent lordosis of the cervical spine is seen, likely chronic. A calcific density to the right of C1 is likely chronic. Partial visualization of bilateral carotid bulb calcif ications. IMPRESSION: Prominent degenerative changes without evidence of acute fracture. ACT 112: Negative or not required by law. Electronically signed by: Isidro Romero M.D. 06/13/2022 2:50 PM
--- NOTE | 2022-06-13 14:54 | CT Scan Report ---
CT SCAN OF THE ABDOMEN AND PELVIS WITHOUT IV CONTRAST CLINICAL HISTORY: Fall. Change in mental status. COMPARISON STUDY: Abdominal CT dated 05/25/2018. TECHNIQUE: CT scan of the abdomen and pelvis is performed from the lung bases to the proximal femora. Images are reviewed in the axial, sagittal, and coronal planes. IV contrast was not administered for this examination. Note that the examination is significantly suboptimal without oral and IV contrast . There is also motion artifact, as well as streak artifact from the arms which could not be elevated above the abdomen. A dose lowering technique was utilized adhering to the principles of ALARA. CT DOSE: 1264.05 mGy.cm FINDINGS: Lung bases: The heart is enlarged and without pericardial effusion. The pulmonary arteries is densely calcified. There is a small hiatal hernia. The lung bases are clear noting bibasilar scarring/atelec tasis. Liver: Evaluation of the liver are significantly degraded by streak artifact. The unenhanced liver is normal in size, contour, and attenuation. There is no intrahepatic biliary ductal dilatation. A 2.3 cm ovoid nearly isodense structure along the inferior margin of liver is unchanged. Gallbladder: Unremarkable. Spleen: Normal in size and attenuation. Pancreas: The unenhanced pancreas is moderately atrophic and grossly unremarkable. Adrenal glands: Unremarkable. Kidneys: The unenhanced kidneys are normal in size. There is mild to moderate bilateral hydroureteron ephrosis, likely related to the greater bladder distention. There are least 2 punctate nonobstructing left renal calculi. A single punctate calculus is seen on the right. There is no evidence of contour deforming renal mass lesion. Abdominal vasculature: The abdominal aorta is normal in course and caliber noting advanced atheroscle rotic calcification. Bowel: There is advanced colonic diverticulosis without CT evidence of acute diverticulitis. No bowel obstruction is identified. Mild fecal retention is seen throughout the colon. The appendix is jakub l as imaged. Peritoneum: There is no intraperitoneal free air or abdominal ascites. Lymphadenopathy: None. Pelvic viscera: The bladder is markedly distended. A 2.5 cm bladder diverticulum is seen along the ri ght superior aspect of the bladder wall on image #300. The uterus and adnexa are normal as visualized . Skeletal structures: The skeletal structures are osteopenic. The lumbosacral spine, bony pelvis, and proximal femora appear intact. There is moderate lumbosacral spondylosis and scoliosis. Advanced arth ritic change is seen in the hips. No lytic or blastic lesions are seen. IMPRESSION: 1. Significantly suboptimal examination without oral or IV contrast. There is also streak and motion artifact. 2. There is no evidence of solid organ injury in the abdomen or pelvis on this unenhanced examination . 3. Severe bladder distention. 4. Moderate bilateral hydroureteronephrosis is likely related to bladder distention. 5. Cardiomegaly. 6. Advanced colonic diverticulosis without CT evidence of acute diverticulitis. 7. Bilateral nephrolithiasis. 8. Additional findings as above. ACT 112: Negative or not required by law. Electronically signed by: Macho Blount M.D. 06/13/2022 2:52 PM
--- NOTE | 2022-06-13 14:59 | CT Scan Report ---
CT OF THE HEAD WITHOUT CONTRAST CLINICAL HISTORY: Fall. COMPARISON STUDY: MRI of the brain June 22, 2021. Head CT February 21, 2022. TECHNIQUE: Helical axial images of the head were obtained without IV contrast. Automated exposure con trol was utilized for the study. A dose lowering technique was utilized adhering to the principles o f ALARA. FINDINGS: No acute intracranial hemorrhage is present. Note is made of a new 7 x 2.9 cm hypodense foc us with loss of byrne-white differentiation within the right temporal lobe. This was not present on CT of February 21, 2022. There is no significant mass effect. White matter hypodensity suggests small vessel disease. Ventricular system is normal. Basal cisterns are patent. There are no extra axial collection s. A 1.7 cm lytic right parietal bone lesion on axial image 2428 is noted. This is unchanged since CT of February 21, 2022. This is new since head CT of July 06, 2020. Right upper neck and occipital rohit a is incidentally noted. IMPRESSION: 1. No acute intracranial hemorrhage. No acute calvarial fracture. 2. 7 x 2.9 cm hypodense focus with loss of byrne-white differentiation within the right temporal lobe which is new since head CT of February 21, 2022. Although age indeterminate, the appearance favors a large subacute right MCA territory infarct. Imaging follow-up is recommended to ensure expected evolution i s recommended. ACT 112: Negative or not required by law. Electronically signed by: Ramin Alfaro M.D. 06/13/2022 2:57 PM
[2022-06-13 15:16] LABS: INR 1.2 (0.9-1.1); Partial Thromboplastin Time 26.6 Seconds (21.0-31.0); Prothrombin Time 12.8 Seconds (9.0-12.0)
--- NOTE | 2022-06-13 15:25 | History & Physical Report ---
Date of Service June 13, 2022 Assessment & Plan (1) Acute ischemic cerebrovascular accident (CVA) involving right middle c erebral artery territory: Plan: - Head CT shows a 7 x 2.9 cm hypodense focus with loss of byrne-white differentiation within the right temporal lobe which is new since head CT of February 21, 2022. Although age indeterminate, the appearance favors a large subacute right MCA territory infarct Most likely secondary to not taking Xarelto in setting of permanent Afib - Head/neck CTA ordered, pending. - MRI brain - Echo in a.m. - CBC, BMP, HbA1c, PT/INR, lipid panel in a.m. - N.p.o. for now. Holding all p.o. meds until patient is alert enough to rubens hernandez. - PT, OT, ST to evaluate in a.m. - Hold BP meds to allow for degree of permissive hypertension for now, however she will be on a dilt gtt for management of A. fib RVR. - Neurology consult placed, appreciate their recommendations. - Patient given full dose aspirin TX in ED, holding off on oral anticoagulation until day 3 per neurology due to high risk for hemorrhagic conversion. (2) Atrial fibrillation with rapid ventricular response: Plan: - Permanent. Managed on Xarelto, as well as digoxin and Cardizem for rate cont rol, however has likely not had these medications in nearly one week. - Dig level <0.3. Goal digoxin < 1.0 per cardiology. - Patient with HR in [id number] in ED, started on dilt drip without bolus. Has not been able to tolerate b-blockers in the past. -hold off on heparin gtt as per Neurology due to high risk of hemorrhagic conversion (3) Rhabdomyolysis: Plan: - CK 1274, patient down on ground for unknown amount of time. Renal function about her baseline. Initial lactate 2.3, down to 1.8 after 500 cc NS bolus x2 in ED. - Continue IVF, repeat CK in AM. (4) Pressure ulcer: Plan: - Patient had been down on ground for an unknown number of hours. There is some skin breakdown around the sacral region. - Wound care consult placed. (5) CAD (coronary artery disease): Plan: - Mild, nonobstructive CAD noted in the past. CT scan in 2018 demonstrated densely calcified coronary arteries per report. Negative myocardial perfusion study in 2018. - EKG in ED does show some ST and T wave abnormalities in inferior and anterolateral leads, initial troponin 45.4, repeat several hours later 44.6. - Patient without chest pain or dyspnea. - Trend troponin, repeat EKG with chest pain. (6) Hypertension: Plan: - Holding ramipril and diltiazem for now. May resume tomorrow if patient is alert enough to swallow p.o. meds (7) Dyslipidemia: Plan: - May continue statin when patient is alert enough for p.o. meds. (8) Malignant neoplasm of upper-outer quadrant of right breast in female, estrogen receptor positive: Plan: - s/p right mastectomy, on tamoxifen prophylactically. (9) Severe obstructive sleep apnea: Plan: - Continue CPAP at night. (10) Hypothyroidism: Plan: - Holding p.o. meds for now, can continue levothyroxine when alert enough to tolerate p.o. meds. TSH normal in 02/2022 (11) Depression: Plan: - Holding p.o. meds for now, can continue Effexor when alert enough to tolerate p.o. meds. (12) Insomnia: Plan: - Hold temazepam. (13) Acute urinary retention: Plan: bladder distended with bilat hydronephrosis on CT abd/pel placed Balderas catheter likely neurogenic in nature Plan - Admit to PCU. - SCDs for DVT PPx, chemo PPx currently contraindicated due to large subacute CVA. - DNR/DNI, per review of documentation patient was sent with from [facility]. Per staff at [facility] patient does not have POA assigned, however has a friend Carlie Hernandez listed as her primary contact: . History of Present Illness Chief Complaint: Patient was found confused and on the floor at her personal skilled nursing this morning Primary Care Provider: [facility] Madeline Holley is an 82-year-old female with past medical history significant for nonobstructive CAD, permanent A. fib on Xarelto, hypertension, dyslipidemia, depression, breast cancer, and [place] who [facility] being found down on the ground in her home. Patient is unable to provide history, therefore is obtained from ED provider, as well as friend who is her primary contact and is at bedside. Patient's last known well is known to be yesterday around 12 PM. Later in the afternoon, and I texted her about plans they had the day, however she never responded. Today, when she was checked on she was found down on the ground in her apartment and was confused, which is significant deviation from her baseline. Baseline is AAO x3 and is able to ambulate independently. She complained of pain with any movement at her facility before being evaluated in ED, however here her only complaint is that she is very tired. Unable to recall what led to her fall. Staff noted that the majority of her pills were still in her pillbox when they found her today, estimating the last time she would have taken any of her medications was last Monday. She is in permanent A. fib and on Xarelto, however likely has not had this for several days. Presentation to the ED, she is hypertensive with presenting BP 147/100, HR 120s, and A. fib. Febrile with temp of 37.7 C. SPO2 >95% on RA. Lab significant f or leukocytosis, initial lactate 2.3, CK 1274, troponin 45.4. Head CT showed a 7 x 2.9 cm hypodense focus with loss of byrne-white differentiation within the right temporal lobe which is new since head CT of February 21, 2022. Although age indeterminate, the appearance favors a large subacute right MCA territory infarct. Allergies Allergy/AdvReac Type Severity Reaction Status Date / Time sodium benzoate Allergy Unknown migraine Verified 06/13/22 15:48 Sulfa (Sulfonamide Allergy Unknown rash Verified 06/13/22 15:48 Antibiotics) Home Medications Medication Instructions Recorded Confirmed Type atorvastatin 20 mg tablet 20 mg PO QPM #90 tabs 08/16/19 06/13/22 Rx digoxin 125 mcg (0.125 mg) tablet 125 mcg PO QAM 11/27/19 06/13/22 History (Digox) potassium chloride 10 mEq 10 meq PO QPM 11/29/19 06/13/22 History tablet,extended release temazepam 15 mg capsule 15 mg PO HS PRN sleep 11/29/19 06/13/22 History diltiazem HCl 180 mg 180 mg PO QAM 12/02/19 06/13/22 History capsule,extended release 24 hr (Cardizem CD) levothyroxine 75 mcg capsule 75 mcg PO QAM 12/02/19 06/13/22 History ramipril 5 mg capsule 5 mg PO QAM 12/02/19 06/13/22 History venlafaxine 75 mg capsule,extended 75 mg PO QPM 12/02/19 06/13/22 History release 24 hr (Effexor XR) tamoxifen 20 mg tablet 20 mg PO DAILY 03/26/21 06/13/22 History rivaroxaban 20 mg tablet (Xarelto) 20 mg PO QPM #90 tabs 12/16/21 06/13/22 Rx albuterol sulfate 90 mcg/actuation 2 puff inhalation QID 06/13/22 06/13/22 History aerosol inhaler venlafaxine 37.5 mg 37.5 mg PO PM 06/13/22 06/13/22 History capsule,extended release 24 hr (Effexor XR) Past Med/Surg History Medical History (Updated 06/13/22 @ 18:07 by Shena Franco PA-C) Abnormal coagulation profile Anticoagulant long-term use Arthritis Asthma Asthma no inh Atrial fibrillation Atrial fibrillation, permanent dx 2002 - on Rivaroxaban Breast cancer recent Dx Breast neoplasm, Tis (LCIS) CAD (coronary artery disease) non-obstructive CAD in [place] artery Cardiomegaly COPD (chronic obstructive pulmonary disease) Decreased exercise tolerance Depression Dyslipidemia Encounter for pre-operative examination Fatigue Generalized abdominal pain Hearing deficit B/L SPARKS History of migraine Hyperlipidemia Hypertension Hypothyroidism Insomnia Left breast mass Lumbago Major depressive disorder, single episode, mild Muscle spasm Neuroendocrine tumor Obstructive sleep apnea Orthostatic hypotension Papilloma of breast Papilloma of left breast Pre-op exam Scoliosis Sensorineural hearing loss (SNHL) of both ears Sleep apnea Sleep apnea CPAP Varicose vein of leg Surgical History H/O cataract removal with insertion of prosthetic lens History of breast biopsy History of cardiac catheterization X2: 2003 & 2005 - NO STENTS History of cardioversion History of cataract surgery History of colonoscopy History of lumpectomy of left breast Left breast lumpectomy with needle loc: 07/11/17: LMA#4 at [facility] History of tooth extraction History of total right knee replacement S/P lumpectomy, left breast (12/19/19) Left Breast Lumpectomy With Needle Localization Dr. Dodson 12/19/19 Family History Mother Diabetes Heart disease Hypertension Stroke Father Colon cancer Other Family history non-contributory No family history of adverse response to anesthesia Social History Smoking Status: Unknown if ever smoked Second Hand Exposure: Yes (as a child); Hx Alcohol Use: Yes Alcohol type: wine and hard liquor Alcohol type Comment: scotch Alcohol Intake Frequency: 2-4 x/Month Hx Substance Use: No Preferred Language: Argentine Communication Ability: Effective Visual Impairment: No Limitations Hearing Ability: Use of Hearing Aid Corn Chip Maker Required: No Beliefs That Will Affect Care: None marital status: Single Current Living Situation: Alone and Personal Care Facility Current Living Situation Comment: [facility] - independent living current occupational status: retired 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 [employer] Other Information That Helps Us Care for You: No Feels Safe at Home: Yes Safety Concerns: Feels Safe At This Time Childhood Exposure to Second-Hand Smoke: Yes Diet Comment: lower CHO, no red meat caffeine: Yes (one coffee in am, coke 8 oz/day) during the past year weight has: decreased > 10 lbs Dental Care, Regularly: No Physical Activity Frequency: 1-2 Times per Week Physical Activity Frequency Comment: walks her dog, and exercises moderately, used to swim Seatbelt Use: always Sunscreen Use: Yes Assistive Devices: Cane, CPAP, Denture - Upper, Denture - Lower, Glasses, Hearing Aid - Bilateral and Walker Review of Systems Review of Systems: Unobtainable due to cognitive status Physical Exam Physical Exam: General: drowsy but alert with prompting, oriented to self only Head: Normocephalic, atraumatic ENT: patient unable to demonstrate EOMs; PERRL; no pharyngeal exudate, mucous membranes appear dry Chest: Clear to auscultation, on room air, no adventitious breath sounds Cardiac: irregular rhythm tachycardic rate consistent with afib; no murmur, no JVD, normal peripheral pulses, good capillary refill Abdominal: NABS x 4 quadrants, soft, nontender to palpation, no rebound, guarding or tenderness Extremities: Normal inspection, no peripheral edema or erythema, calfs nontender to palpation Psych: Normal mood and affect Neuro: AAO x 1 self only, absent left risk management specialist, left upper and lower extremity weakness and decreased sensation, speech is clear Skin: b/l lower extremity varicose veins; no rash or erythema Results & Data Results & Data ([facility]) Vital Signs (Past 12 Hours) Vital Signs Temp Pulse Resp BP Pulse Ox O2 Del Method 06/13/22 15:00 108 H 31 H 06/13/22 14:45 130 H 25 H 98 Room Air 06/13/22 14:45 132/59 L 06/13/22 14:00 116 H 23 06/13/22 13:30 94 H 20 06/13/22 13:00 117 H 22 06/13/22 13:00 147/100 H 06/13/22 12:37 124 H 95 06/13/22 12:34 122 H 18 06/13/22 12:55 Room Air 06/13/22 12:55 37.7 C H 128 H 20 147/100 H 97 Room Air Laboratory Results Abnormal lab results 06/13/22 06/13/22 06/13/22 Range/Units 12:55 12:55 12:55 WBC 16.12 H (4.8-10.8) K/ul RDW Std Deviation 49.2 H (36.4-46.3) fL Neut # (Auto) 13.85 H (1.4-6.5) K/uL Lymph # (Auto) 0.99 L (1.2-3.4) K/uL [place] # (Auto) 1.17 H (0.24-0.82) K/uL Immature Gran # (Auto) 0.08 H (0.00-0.02) K/uL PT (9.0-12.0) Seconds INR (0.9-1.1) VBG pH (7.36-7.41) VBG pCO2 (38-50) mmHg BUN 28 H (6-23) mg/dl BUN/Creatinine Ratio 38.9 H (10-20) Glucose 142 H (70-99(Fasting)) mg/dl Lactate 2.3 H* (0.4-2.0) mmol/L Total Bilirubin 1.6 H (0.2-1.0) mg/dl AST 65 H (13-39) U/L Total Creatine Kinase 1274 H (26-192) U/L Troponin I High Sens 45.4 H (0-14) pg/ml Urine Protein (Negative) Urine Ketones (Negative) U Epithel Cells (Auto) (0-5) /lpf Digoxin (0.8-2.0) ng/ml 06/13/22 06/13/22 06/13/22 Range/Units 13:05 13:13 13:38 WBC (4.8-10.8) K/ul RDW Std Deviation (36.4-46.3) fL Neut # (Auto) (1.4-6.5) K/uL Lymph # (Auto) (1.2-3.4) K/uL [place] # (Auto) (0.24-0.82) K/uL Immature Gran # (Auto) (0.00-0.02) K/uL PT (9.0-12.0) Seconds INR (0.9-1.1) VBG pH 7.53 H (7.36-7.41) VBG pCO2 31 L (38-50) mmHg BUN (6-23) mg/dl BUN/Creatinine Ratio (10-20) Glucose (70-99(Fasting)) mg/dl Lactate (0.4-2.0) mmol/L Total Bilirubin (0.2-1.0) mg/dl AST (13-39) U/L Total Creatine Kinase (26-192) U/L Troponin I High Sens (0-14) pg/ml Urine Protein Trace H (Negative) Urine Ketones 2+ H (Negative) U Epithel Cells (Auto) >30 H (0-5) /lpf Digoxin < 0.3 L (0.8-2.0) ng/ml 06/13/22 Range/Units 14:51 WBC (4.8-10.8) K/ul RDW Std Deviation (36.4-46.3) fL Neut # (Auto) (1.4-6.5) K/uL Lymph # (Auto) (1.2-3.4) K/uL [place] # (Auto) (0.24-0.82) K/uL Immature Gran # (Auto) (0.00-0.02) K/uL PT 12.8 H (9.0-12.0) Seconds INR 1.2 H (0.9-1.1) VBG pH (7.36-7.41) VBG pCO2 (38-50) mmHg BUN (6-23) mg/dl BUN/Creatinine Ratio (10-20) Glucose (70-99(Fasting)) mg/dl Lactate (0.4-2.0) mmol/L Total Bilirubin (0.2-1.0) mg/dl AST (13-39) U/L Total Creatine Kinase (26-192) U/L Troponin I High Sens (0-14) pg/ml Urine Protein (Negative) Urine Ketones (Negative) U Epithel Cells (Auto) (0-5) /lpf Digoxin (0.8-2.0) ng/ml Diagnostic Findings Abdomen/Pelvis CT 06/13/22 12:37 CT SCAN OF THE ABDOMEN AND PELVIS WITHOUT IV CONTRAST CLINICAL HISTORY: Fall. Change in mental status. COMPARISON STUDY: Abdominal CT dated 05/25/2018. TECHNIQUE: CT scan of the abdomen and pelvis is performed from the lung bases to the proximal femora. Images are reviewed in the axial, sagittal, and coronal planes. IV contrast was not administered for this examination. Note that the examination is significantly suboptimal without oral and IV contrast. There is also motion artifact, as well as streak artifact from the arms which could not be elevated above the abdomen. A dose lowering technique was utilized adhering to the principles of ALARA. CT DOSE: 1264.05 mGy.cm FINDINGS: Lung bases: The heart is enlarged and without pericardial effusion. The pulmonary arteries is densely calcified. There is a small hiatal hernia. The lung bases are clear noting bibasilar scarring/atelectasis. Liver: Evaluation of the liver are significantly degraded by streak artifact. The unenhanced liver is normal in size, contour, and attenuation. There is no intrahepatic biliary ductal dilatation. A 2.3 cm ovoid nearly isodense structure along the inferior margin of liver is unchanged. Gallbladder: Unremarkable. Spleen: Normal in size and attenuation. Pancreas: The unenhanced pancreas is moderately atrophic and grossly unremarkable. Adrenal glands: Unremarkable. Kidneys: The unenhanced kidneys are normal in size. There is mild to moderate bilateral hydroureteronephrosis, likely related to the greater bladder distention. There are least 2 punctate nonobstructing left renal calculi. A single punctate calculus is seen on the right. There is no evidence of contour deforming renal mass lesion. Abdominal vasculature: The abdominal aorta is normal in course and caliber noting advanced atherosclerotic calcification. Bowel: There is advanced colonic diverticulosis without CT evidence of acute diverticulitis. No bowel obstruction is identified. Mild fecal retention is seen throughout the colon. The appendix is normal as imaged. Peritoneum: There is no intraperitoneal free air or abdominal ascites. Lymphadenopathy: None. Pelvic viscera: The bladder is markedly distended. A 2.5 cm bladder diverticulum is seen along the right superior aspect of the bladder wall on image #300. The u terus and adnexa are normal as visualized. Skeletal structures: The skeletal structures are osteopenic. The lumbosacral spine, bony pelvis, and proximal femora appear intact. There is moderate lumbo sacral spondylosis and scoliosis. Advanced arthritic change is seen in the hips. No lytic or blastic lesions are seen. IMPRESSION: 1. Significantly suboptimal examination without oral or IV contrast. There is also streak and motion artifact. 2. There is no evidence of solid organ injury in the abdomen or pelvis on this unenhanced examination. 3. Severe bladder distention. 4. Moderate bilateral hydroureteronephrosis is likely related to bladder distention. 5. Cardiomegaly. 6. Advanced colonic diverticulosis without CT evidence of acute diverticulitis. 7. Bilateral nephrolithiasis. 8. Additional findings as above. ACT 112: Negative or not required by law. Electronically signed by: Macho Blount M.D. 06/13/2022 2:[address] 06/13/22 12:37 CT cervical spine wo con CLINICAL HISTORY: fall TECHNIQUE: Multidetector row helical CT of the cervical spine was performed without administration of intravenous contrast. Coronal and sagittal reformations were obtained. Automated dose lowering techniques and/or adjustment according to patient size were utilized for this exam. Comparison: None available at the time of this dictation. FINDINGS: No acute fractures or subluxations are identified. Degenerative changes are seen in the visualized spine. Likely old calcific densities are seen for example at the spinous process of C5 or at the left transverse process of C5. Prominent lordosis of the cervical spine is seen, likely chronic. A calcific density to the right of C1 is likely chronic. Partial visualization of bilateral carotid bulb calcifications. IMPRESSION: Prominent degenerative changes without evidence of acute fracture. ACT 112: Negative or not required by law. Electronically signed by: Isidro Romero M.D. 06/13/2022 2:50 PM Chest X-Ray 06/13/22 12:37 XR chest 1V portable CLINICAL HISTORY: SEPSIS TECHNIQUE: Single frontal radiograph of the chest was obtained. Comparison: Comparison is made to chest radiograph 02/21/2022 FINDINGS: No lines and tubes are seen. Cardiomegaly is noted. Reticular interstitial opacities are seen. No evidence of pleural effusion or pneumothorax. Degenerative changes are seen in the spine and shoulder joints. IMPRESSION: No acute chest disease. ACT 112: Negative or not required by law. Electronically signed by: Isidro Romero M.D. 06/13/2022 1:[address] 06/13/22 12:37 CT OF THE HEAD WITHOUT CONTRAST CLINICAL HISTORY: Fall. COMPARISON STUDY: MRI of the brain June 22, 2021. Head CT February 21, 2022. TECHNIQUE: Helical axial images of the head were obtained without IV contrast. Automated exposure control was utilized for the study. A dose lowering technique was utilized adhering to the principles of ALARA. FINDINGS: No acute intracranial hemorrhage is present. Note is made of a new 7 x 2.9 cm hypodense focus with loss of byrne-white differentiation within the right temporal lobe. This was not present on CT of February 21, 2022. There is no significant mass effect. White matter hypodensity suggests small vessel disease. Ventricular system is normal. Basal cisterns are patent. There are no extra axial collections. A 1.7 cm lytic right parietal bone lesion on axial image 2428 is noted. This is unchanged since CT of February 21, 2022. This is new since head CT of July 06, 2020. Right upper neck and occipital edema is incidentally noted. IMPRESSION: 1. No acute intracranial hemorrhage. No acute calvarial fracture. 2. 7 x 2.9 cm hypodense focus with loss of byrne-white differentiation within the right temporal lobe which is new since head CT of February 21, 2022. Although age indeterminate, the appearance favors a large subacute right MCA territory infarct. Imaging follow-up is recommended to ensure expected evolution is recommended. ACT 112: Negative or not required by law. Electronically signed by: Ramin Alfaro M.D. 06/13/2022 2:57 PM Code Status & VTE Plan Code Status DNR/DNI. Supervising Physician Co-Signing Physician Notes PA Supervision Note: I personally saw and examined the patient. I verified all golden points and agree with ARLEN Franco with the following exceptions and/or additions: S-Pt unable to give me any history. Is lethargic and barely opens eyes when I speak to her. Her close friend and primary POC is at the bedside and provides history. Pt possibly last known well presumably yesterdya after her car alarm was noted to be going off and then stopped (witnesses presume she stopped it remotely from inside her condo). But last seen well 2 days prior. Found today down on ground, confused, lethargic. Found to have large subacute CVA right temporal lobe on CT head, rhabdo with pressure ulcers on buttocks/sacrum, and hypertensive and tachycardic. Typically she is independent, drives, and was supposed to be going to a [employer] baseball game today with her friend Cooper. O- Vitals reviewed Gen: [lethargic, barely opens eyes to verbal and tactile stimulus, maintaining airway,NAD] HEENT: [anicteric sclerae, PERRL, no anisocoria, no nystagmus] CV: [irreg irreg, tachycardic, no mgr nl S1S2] Pulm: [CTAB no wcr] Abd: [+BS soft NT ND no masses or hernias] Ext: [no edema, 2+ DP pulses] Skin: [no rashes, warm/dry] Neuro: [+left hemineglect, left sided weakness, also with some weakness in right side? certainly with confusion, no facial droop but does have ptosis right eye] Labs, Rads, and ECG reviewed A/P-82 yo female here with large subacute right temporal lobe stroke, lethargy, confusion, likely 2/2 noncompliance with Xarelto therapy in setting of permanent Afib. -check CTA head/neck but is outside the window for thrombectomy at this point given last known well likely closer to 48 hrs ago -check brain MRI, ECHO -gave ASA TX in ER-await furtheri input from Neuro but is high risk for hemorrhagic conversion so will not start heparin gtt at this time. Unclear if ASA will be of any benefit moving forward -permissive HTN, giving diltiazem gtt for rate control for Afib -prognosis guarded-d/w friend Carlie at bedside. The secondary contact is a niece in [place], but it is unclear who the patient's decision maker is as thses is no advanced directive on file other than a simple DNR form. Carlie Hernandez, close friend at bedside, does not think she has offical paperwork designating her as POA, but is willing ot help make decisions if needed as pt is unable to make her own decisions at this point. Dinesh Salcedo is reaching out to the secondary contact PG Care Time/CCT Total # of Minutes Spent Total Time Spent with Patient: Total time spent is greater than 50% in coordination of care (as documented) at patient's floor/unit and/or counseling patient: Coding Level of Care Code 65586 Initial Inpt Care Lvl 3 Diagnoses 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 (1) Rhabdomyolysis Rhabdomyolysis type: non-traumatic Qualified Code(s): M62.82 - Rhabdomyolysis (2) Pressure ulcer Laterality: unspecified laterality Pressure injury location: buttock Pressure injury stage: stage 1 Qualified Code(s): L89.301 - Pressure ulcer of unspecified buttock, stage 1
[2022-06-13] MEDS ORDERED: STAT IV Infusion **Titration per Protocol STA (16:07)
[2022-06-13] MEDS ORDERED: ASPIRIN 300 MG SUPP PR ONE (16:08)
[2022-06-13] MEDS: dilTIAZem HCL 125 MG in DEXTROSE 5% 100 ML IV SCH (16:39)
[2022-06-13] MEDS ORDERED: PHARMACIST DISCHARGE MED REC CONSULT PRN (18:47)
[2022-06-13] MEDS ORDERED: TEMAZEPAM 15 MG CAPSULE PO PRN (18:47)
[2022-06-13] MEDS ORDERED: ONDANSETRON INJ 2 MG/ML 2 ML VIAL IV PRN (18:47)
[2022-06-13] MEDS ORDERED: POLYETHYLENE (MIRALAX) 17 GM PACK PO PRN (18:47)
[2022-06-13] MEDS: LACTATED RINGER'S 1,000 ML IV SCH (19:15)
[2022-06-13] MEDS: ENALAPRIL MALEATE 10 MG TAB PO SCH (20:47)
[2022-06-13] MEDS: VENLAFAXINE HCL XR 75 MG CAPXR PO SCH (20:47)
[2022-06-13] MEDS ORDERED: POTASSIUM CHLORIDE 10 MEQ TABCR PO SCH (21:00)
[2022-06-13] MEDS ORDERED: ATORVASTATIN 20 MG TAB PO SCH (21:00)
[2022-06-13] MEDS ORDERED: GADOBUTROL 65ML VIAL IV ONE (21:39)
[2022-06-13] MEDS ORDERED: OPTIRAY 300 500mL IV ONE (22:06)
[2022-06-14] MEDS ORDERED: MoRPHine SULFATE 2 MG/ML CARP IV STA (00:27)
[2022-06-14] MEDS: LACTATED RINGER'S 1,000 ML IV SCH ×2 (03:59→11:14)
[2022-06-14 05:17] LABS: INR 1.2 (0.9-1.1)
[2022-06-14 05:22] LABS: Troponin I High Sensitivity 32.6 pg/ml (0-14)
[2022-06-14 05:30] LABS: Alanine Aminotransferase 23 U/L (7-52); Alkaline Phosphatase 49 U/L (34-104); Anion Gap 5 (3-11); Aspartate Aminotransferase 44 U/L (13-39); BUN Creatinine Ratio 43.9 (10-20); Bilirubin Direct 0.3 mg/dl (0-0.2); Bilirubin,Total 1.4 mg/dl (0.2-1.0); Blood Urea Nitrogen 25 mg/dl (6-23); Calcium 8.5 mg/dl (8.5-10.1); Carbon Dioxide 25 mmol/L (21-32); Chloride 108 mmol/L (98-107); Chol HDL Ratio 4.4 (0-5); Cholesterol 168 mg/dl (0-200); Creatine Kinase 440 U/L (26-192); Est GFR (African American) 99.4 ml/min; Est GFR (Non-African American) 85.7 ml/min; Glucose 120 mg/dl (70-99(Fasting)); HDL Cholesterol 38 mg/dl; LDL Cholesterol Calculated 108 mg/dl; Potassium 3.8 mmol/L (3.5-5.1); Sodium 138 mmol/L (136-145); Total Protein 5.9 gm/dl (6.0-8.3); Triglycerides 111 mg/dl (0-150); VLDL Cholesterol 22 mg/dl (0-30)
[2022-06-14 05:54] LABS: Basophils # (auto) 0.04 K/uL (0-0.2); Basophils % (auto) 0.3 %; Eosinophils # (auto) 0.12 K/uL (0-0.50); Eosinophils % (auto) 0.9 %; Hematocrit (blood only) 35.1 % (34.1-44.9); Immature Granulocytes # (auto) 0.07 K/uL (0.00-0.02); Immature Granulocytes % (auto) 0.5 %; Lymphocytes # (auto) 1.45 K/uL (1.2-3.4); Lymphocytes % (auto) 10.6 %; Mean Corpuscular Hemoglobin 34.2 pg (25.0-34.0); Mean Corpuscular Hgb Conc 34.2 g/dL (32.0-36.0); Mean Platelet Volume 11.5 fL (9.4-12.3); Monocytes # (auto) 1.34 K/uL (0.24-0.82); Monocytes % (auto) 9.8 %; Neutrophils # (auto) 10.68 K/uL (1.4-6.5); Neutrophils % (auto) 77.9 %; Platelet Count 129 K/uL (130-400); Platelet Estimate Decreased (Normal); RDW Coefficient of Variation 13.5 % (11.5-14.5); RDW Standard Deviation 49.8 fL (36.4-46.3); Red Blood Count 3.51 M/uL (3.93-5.22)
[2022-06-14] MEDS: LEVOTHYROXINE SODIUM 75 MCG TABLET PO SCH (06:10)
[2022-06-14 07:11] LABS: Estimated Average Glucose 108 mg/dl; Hemoglobin A1C 5.4 % (4.5-5.6)
--- NOTE | 2022-06-14 07:18 | CT Scan Report ---
NECK CTA HISTORY: right sided cva TECHNIQUE: Multiaxial CT images of the neck were performed following the intravenous administration o f contrast to evaluate the major cervical vessels. Maximum intensity projection images were also obta ined. All measurements were calculated based on NASCET criteria. A dose lowering technique was utili zed adhering to the principles of ALARA. COMPARISON STUDY: None. FINDINGS: The aortic arch and proximal great vessels are widely patent. There is no significant sten osis, occlusion, or dissection identified within the bilateral common carotid, internal carotid, or v ertebral arteries. Mild to moderate calcified plaque within the bilateral carotid bifurcations. 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 IMPRESSION: No significant stenosis, occlusion, or dissection identified within the carotid or vertebral arteries . ACT 112: Negative or not required by law. Electronically signed by: Fransisco Rushing M.D. 06/14/2022 7:16 AM
--- NOTE | 2022-06-14 07:25 | Magnetic Resonance Report ---
Brain MRI WITH AND WITHOUT CONTRAST HISTORY: Left-sided weakness. Confusion. TECHNIQUE: Multiplanar multisequence MRI of the brain was performed both before and after the intrave nous administration of contrast. COMPARISON STUDY: Head CT 06/13/2022. FINDINGS: There is 11 cm area of restricted diffusion involving the right parietal and temporal lobes consistent with a large acute right MCA territory infarct. There is associated cytotoxic edema at th e area of infarct. No significant midline shift or mass effect. Paravertebral white matter T2 hyperin tensity is nonspecific but favors microvascular ischemic change. The ventricles and sulci demonstrate mild age-related involutional changes. No intracranial hemorrhage identified. Postcontrast sequences show no areas of abnormal enhancement. The paranasal sinuses and mastoid air cells are clear. Eviden ce for prior bilateral lens replacement. The major vascular flow-voids at the skull base are maintain ed. IMPRESSION: Confirmation of the acute large right MCA territory infarct as described above. No midline shift or i ntracranial hemorrhage identified at this time. ACT 112: Negative or not required by law. Electronically signed by: Fransisco Rushing M.D. 06/14/2022 7:24 AM
--- NOTE | 2022-06-14 07:33 | CT Scan Report ---
CTA ANGIOGRAPHY OF THE HEAD CLINICAL HISTORY: right sided CVA COMPARISON STUDY: Head CT and MRI of the brain performed earlier today. Head CT February 21, 2022. TECHNIQUE: Helical axial images of the head were obtained following uneventful intravenous administr ation of 118 cc of Optiray. Sagittal and coronal reconstructions were viewed as well as maximal inten sity projections on an independent 3-D workstation. Automated exposure control was utilized for the study. A dose lowering technique was utilized adhering to the principles of ALARA. CT DOSE: 778.81 mGy.cm FINDINGS: No acute intracranial hemorrhage is identified although sensitivity is diminished on this c ontrast enhanced exam. Note is again made of a large infarct within the right temporal lobe which nolan sures approximately 10 x 3.2 cm. There is no midline shift. There is no significant compression of th e right lateral ventricle. There is moderate calcified plaque within the bilateral cavernous carotids without stenosis. Note is made of occlusion of a right M2 branch which supplies the right temporal l obe. This is shown on axial image 126 of 282. There is intraluminal clot. This accounts for the infar ct shown on head CT and MRI of the brain. No additional sites of vessel occlusion are present. There is persistence of the right posterior cerebral artery. No intracranial aneurysm is present. The re is no dissection within the intracranial vessels. IMPRESSION: 1. 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 2. No additional sites of vessel occlusion. 3. No intracranial aneurysm. ACT 112: Negative or not required by law. Electronically signed by: Ramin Alfaro M.D. 06/14/2022 7:32 AM
--- NOTE | 2022-06-14 07:35 | XRay Report ---
XR hip 1V RT w pelvis CLINICAL HISTORY: fall, hip pain COMPARISON: CT of the abdomen and pelvis June 13, 2022. FINDINGS: Balderas catheter is in place. There is contrast within the bladder, collecting systems and u reters from recent contrast-enhanced CT. No acute fracture within the pelvis or hips is identified. T here is severe bilateral hip osteoarthritis. Sacroiliac joints and symphysis pubis are intact. IMPRESSION: 1. No acute fracture within the pelvis or hips. 2. Severe bilateral hip osteoarthritis. ACT 112: Negative or not required by law. Electronically signed by: Ramin Alfaro M.D. 06/14/2022 7:33 AM
[2022-06-14] MEDS ORDERED: dilTIAZem HCL 180 MG CAPCR PO SCH (09:00)
[2022-06-14] MEDS: dilTIAZem HCL 125 MG in DEXTROSE 5% 100 ML IV SCH ×2 (09:20→11:57)
[2022-06-14] MEDS: TAMOXIFEN CITRATE 10 MG TABLET PO SCH (09:20)
--- NOTE | 2022-06-14 11:24 | Neurology Consultation ---
Date of Consultation June 14, 2022 Assessment & Plan (1) Acute ischemic cerebrovascular accident (CVA) involving right middle cerebral artery territory: (2) Atrial fibrillation with rapid ventricular response: (3) Rhabdomyolysis: Plan ASSESSMENT and PLAN/RECOMMENDATIONS: 1. Acute ischemic CVA, involving right MCA territory. Impression: The patient has long history of atrial fibrillation, on Xarelto. She was not compliant with treatment for at least 1 week. She was found on the floor, and imaging studies consistent with acute/subacute ischemic stroke, large, involving right MCA territory. Underlying etiology was most likely cardioembolic event. The patient was not a candidate for intravenous thrombolytic treatment or thrombectomy based on undefined stroke onset and sizable stroke. Plan: Become so high hemorrhagic conversion risk, we will hold anticoagulation for 2 more days, and if repeat head CT shows no hemorrhage, then Eliquis or Xarelto should be started. If the patient cannot take oral medication, then we might initially use heparin infusion then. Until starting on anticoagulation, we will keep the patient on aspirin suppository 300 mg daily. Apparently, antiplatelet treatment is not protective for cardioembolic event. After starting on anticoagulation, aspirin should be stopped. Permissive hypertension. If the patient blood pressure stays low, then consider holding Cardizem or IV normal saline, 100 mL/h. Physical therapy, Occupational Therapy, speech pathology evaluations. N.p.o. until clearance from speech pathology. Echocardiogram DVT prophylaxis will not increase hemorrhagic conversion risk, and should be started as soon as possible. After clearance for oral intake, Lipitor 40 mg at bedtime should be started. Neurological decline in next 3 to 5 days is expected as large stroke will cause cerebral edema. There is no indication to use steroids or mannitol at this time. The patient will probably need long-term rehabilitation. We will follow the patient's with you. 2. Atrial fibrillation Impression: The patient has been on Xarelto, but for unclear reason, she has not been compliant on this treatment for at least a week. On admission, ventricular rhythm was high. Plan: I agree with keeping patient on diltiazem. For permissive hypertension, this medication might be held for a day or two. 3. Hyperlipidemia Impression: Current lipid panel showed elevated lipids. Plan: We will start patient on Lipitor 40 mg, with goal LDL level lower than 70. Thank you for the consultation. History of Present Illness Reason for Consultation: CVA Requesting Physician: Omar Connors Attending Physician: Omar Connors History of Present Illness The patient is a 82-year-old unknown handed female, who was brought to emergency department after she was found on the floor with altered mental status, from independent living facility, yesterday. Head CT emergency department showed evolving, large, right MCA territory hypodensity, which was highly consistent with subacute ischemic stroke. Neck CT angiography was unremarkable, however, head CT angiography showed right M2 branch occlusion with intraluminal clot. Based on sizable stroke, and undefinable stroke onset, the patient was not a considered a candidate for intravenous thrombolytic treatment or thrombectomy. Apparently, the patient has a long history of atrial fibrillation on Xarelto. However, she has not been taking this medication for a week, for on known reason. According to), the patient has been depressed and feeling down recently, which might be the reason of noncompliance. The patient's mental status improved significantly in the emergency department, with IV fluid replacement. There was a dense left hemiparesis. Brain MRI was consistent with right MCA ischemic stroke without hemorrhagic conversion. The patient was given an aspirin suppository in the emergency department. Based on having a large embolic stroke, we have not started the patient on anticoagulation yet, to avoid hemorrhagic conversion. The patient is still n.p.o. Since yesterday, she has been more somnolent. Blood pressure has been on the low side. Because of rapid ventricular rhythm, she has been kept on Cardizem. She has not been cleared for oral intake yet. I have reviewed the patient's chart including imaging studies and visualized them personally. I have discussed the case with the patient's close friend. Allergies Allergy/AdvReac Type Severity Reaction Status Date / Time sodium benzoate Allergy Unknown migraine Verified 06/13/22 15:48 Sulfa (Sulfonamide Allergy Unknown rash Verified 06/13/22 15:48 Antibiotics) Home Medications Medication Instructions Recorded Confirmed Type atorvastatin 20 mg tablet 20 mg PO QPM #90 tabs 08/16/19 06/13/22 Rx digoxin 125 mcg (0.125 mg) tablet 125 mcg PO QAM 11/27/19 06/13/22 History (Digox) potassium chloride 10 mEq 10 meq PO QPM 11/29/19 06/13/22 History tablet,extended release temazepam 15 mg capsule 15 mg PO HS PRN sleep 11/29/19 06/13/22 History diltiazem HCl 180 mg 180 mg PO QAM 12/02/19 06/13/22 History capsule,extended release 24 hr (Cardizem CD) levothyroxine 75 mcg capsule 75 mcg PO QAM 12/02/19 06/13/22 History ramipril 5 mg capsule 5 mg PO QAM 12/02/19 06/13/22 History venlafaxine 75 mg capsule,extended 75 mg PO QPM 12/02/19 06/13/22 History release 24 hr (Effexor XR) tamoxifen 20 mg tablet 20 mg PO DAILY 03/26/21 06/13/22 History rivaroxaban 20 mg tablet (Xarelto) 20 mg PO QPM #90 tabs 12/16/21 06/13/22 Rx albuterol sulfate 90 mcg/actuation 2 puff inhalation QID 06/13/22 06/13/22 History aerosol inhaler venlafaxine 37.5 mg 37.5 mg PO PM 06/13/22 06/13/22 History capsule,extended release 24 hr (Effexor XR) Patient History Medical History Abnormal coagulation profile Anticoagulant long-term use Arthritis Asthma Asthma no inh Atrial fibrillation Atrial fibrillation, permanent dx 2002 - on Rivaroxaban Breast cancer recent Dx Breast neoplasm, Tis (LCIS) CAD (coronary artery disease) non-obstructive CAD in [place] artery Cardiomegaly COPD (chronic obstructive pulmonary disease) Decreased exercise tolerance Depression Dyslipidemia Encounter for pre-operative examination Fatigue Generalized abdominal pain Hearing deficit B/L SPARKS History of migraine Hyperlipidemia Hypertension Hypothyroidism Insomnia Left breast mass Lumbago Major depressive disorder, single episode, mild Muscle spasm Neuroendocrine tumor Obstructive sleep apnea Orthostatic hypotension Papilloma of breast Papilloma of left breast Pre-op exam Scoliosis Sensorineural hearing loss (SNHL) of both ears Sleep apnea Sleep apnea CPAP Varicose vein of leg Surgical History H/O cataract removal with insertion of prosthetic lens History of breast biopsy History of cardiac catheterization X2: 2003 & 2005 - NO STENTS History of cardioversion History of cataract surgery History of colonoscopy History of lumpectomy of left breast Left breast lumpectomy with needle loc: 07/11/17: LMA#4 at [facility] History of tooth extraction History of total right knee replacement S/P lumpectomy, left breast (12/19/19) Left Breast Lumpectomy With Needle Localization Dr. Dodson 12/19/19 Family History Mother Diabetes Heart disease Hypertension Stroke Father Colon cancer Other Family history non-contributory No family history of adverse response to anesthesia Social History Smoking Status: Unknown if ever smoked Second Hand Exposure: Yes (as a child); Hx Alcohol Use: Yes Alcohol type: wine and hard liquor Alcohol type Comment: scotch Alcohol Intake Frequency: 2-4 x/Month Hx Substance Use: No Preferred Language: Spanish Communication Ability: Effective Visual Impairment: No Limitations Hearing Ability: Use of Hearing Aid Setter Off Required: No Beliefs That Will Affect Care: None marital status: Single Current Living Situation: Alone and Personal Care Facility Current Living Situation Comment: [facility] - independent living current occupational status: retired 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 [employer] Other Information That Helps Us Care for You: No Feels Safe at Home: Yes Safety Concerns: Feels Safe At This Time Childhood Exposure to Second-Hand Smoke: Yes Diet Comment: lower CHO, no red meat caffeine: Yes (one coffee in am, coke 8 oz/day) during the past year weight has: decreased > 10 lbs Dental Care, Regularly: No Physical Activity Frequency: 1-2 Times per Week Physical Activity Frequency Comment: walks her dog, and exercises moderately, used to swim Seatbelt Use: always Sunscreen Use: Yes Assistive Devices: Walker Review of Systems Review of Systems: All systems reviewed & are unremarkable except as noted in HPI & below Limited review due to somnolence. No pain or discomfort. Physical Exam Physical Exam: General Examination: Constitutional: Well developed person in no acute distress. HENT: Normal exam with inspection. CV: Hearth rhtyhm is irregularly irregular Neck: Supple, no carotid bruits. Lungs: Non-labored and comfortable breathing. Abdomen: Soft, non-tender, non-distended. Skin: No rash or ecchymosis. Extremities: No edema or cyanosis NEUROLOGICAL EXAMINATION: Mental Status: Somnolent but arousable, oriented to her name only. Cranial Nerves: II-XII are intact. No nystagmus. Funduscopy: Unable to visualize Motor: Essentially intact on the right, left arm strength is 3-/5 and left leg strength is 2+/5. Tone: Decreased tone on the left. DTRs: 1+ on the right and 2- on the left with left Babinsky. Sensory: Feels pinprick in all extremities. Coordination: Unable to assess Speech: She can make limited verbal output. Follows simple verbal commands when stimulated. Gait: Unable to assess Musculoskeletal: Normal muscle bulk, no atrophy. Results & Data ([facility]) Vital Signs (Past 12 Hours) Vital Signs Temp Pulse Pulse Resp BP Pulse Ox O2 Del Method 06/14/22 10:56 100 Nasal Cannula 06/14/22 08:00 80 06/14/22 08:00 Room Air, CPAP 06/14/22 07:54 36.8 C 82 15 106/56 L 98 BiPAP 06/14/22 06:00 80 103/54 L 06/14/22 05:00 93 H 110/55 L 06/14/22 04:06 36.8 C 20 118/57 L 88 L BiPAP 06/14/22 03:55 85 28 H 96 06/14/22 02:00 85 110/51 L 06/14/22 00:00 94 H 109/55 L O2 Flow Rate 06/14/22 10:56 4 06/14/22 08:00 06/14/22 08:00 06/14/22 07:54 06/14/22 06:00 06/14/22 05:00 06/14/22 04:06 06/14/22 03:55 06/14/22 02:00 06/14/22 00:00 Laboratory Results Laboratory Results - last 24 hr 06/13/22 06/13/22 06/13/22 12:55 12:55 12:55 WBC 16.12 H RBC 4.29 Hgb 14.6 Hct 42.9 MCV 100.0 MCH 34.0 MCHC 34.0 RDW Std Deviation 49.2 H RDW Coeff of Colleen 13.4 Plt Count 182 MPV 11.3 Immature Gran % (Auto) 0.5 Neut % (Auto) 85.9 Lymph % (Auto) 6.1 [place] % (Auto) 7.3 Eos % (Auto) 0.1 Baso % (Auto) 0.1 Neut # (Auto) 13.85 H Lymph # (Auto) 0.99 L [place] # (Auto) 1.17 H Eos # (Auto) 0.01 Baso # (Auto) 0.02 Immature Gran # (Auto) 0.08 H Platelet Estimate PT Cancelled INR Cancelled APTT Cancelled PTT Ratio Cancelled VBG pH VBG pCO2 VBG pO2 VBG HCO3 VBG O2 Saturation VBG Base Excess Sodium 139 Potassium 3.9 Chloride 104 Carbon Dioxide 26 Anion Gap 9 BUN 28 H Creatinine 0.72 Est Cr Clr Drug Dosing Not Reportable Est GFR ( Amer) 89.8 Est GFR (Non-Af Amer) 77.4 BUN/Creatinine Ratio 38.9 H Glucose 142 H Estimat Average Glucose Hemoglobin A1c Lactate Calcium 9.4 Magnesium 2.0 Total Bilirubin 1.6 H Direct Bilirubin AST 65 H ALT 26 Alkaline Phosphatase 66 Total Creatine Kinase 1274 H Troponin I High Sens 45.4 H Total Protein 7.3 Albumin 3.8 Globulin 3.5 Albumin/Globulin Ratio 1.1 Triglycerides Cholesterol LDL Cholesterol, Calc VLDL Cholesterol, Calc HDL Cholesterol Cholesterol/HDL Ratio Procalcitonin Urine Color Urine Appearance Urine pH Ur Specific [place] Urine Protein Urine Glucose (UA) Urine Ketones Urine Blood Urine Nitrite Urine Bilirubin Urine Urobilinogen Ur Leukocyte Esterase Urine WBC (Auto) Urine RBC (Auto) U Hyaline Cast (Auto) U Epithel Cells (Auto) Urine Bacteria (Auto) Digoxin SARS-CoV-2, RNA, NAAT 06/13/22 06/13/22 06/13/22 12:55 12:55 13:05 WBC RBC Hgb Hct MCV MCH MCHC RDW Std Deviation RDW Coeff of Colleen Plt Count MPV Immature Gran % (Auto) Neut % (Auto) Lymph % (Auto) [place] % (Auto) Eos % (Auto) Baso % (Auto) Neut # (Auto) Lymph # (Auto) [place] # (Auto) Eos # (Auto) Baso # (Auto) Immature Gran # (Auto) Platelet Estimate PT INR APTT PTT Ratio VBG pH 7.53 H VBG pCO2 31 L VBG pO2 11 VBG HCO3 26 VBG O2 Saturation < 60.0 VBG Base Excess 3.7 Sodium Potassium Chloride Carbon Dioxide Anion Gap BUN Creatinine Est Cr Clr Drug Dosing Est GFR ( Amer) Est GFR (Non-Af Amer) BUN/Creatinine Ratio Glucose Estimat Average Glucose Hemoglobin A1c Lactate 2.3 H* Calcium Magnesium Total Bilirubin Direct Bilirubin AST ALT Alkaline Phosphatase Total Creatine Kinase Troponin I High Sens Total Protein Albumin Globulin Albumin/Globulin Ratio Triglycerides Cholesterol LDL Cholesterol, Calc VLDL Cholesterol, Calc HDL Cholesterol Cholesterol/HDL Ratio Procalcitonin 0.09 Urine Color Urine Appearance Urine pH Ur Specific [place] Urine Protein Urine Glucose (UA) Urine Ketones Urine Blood Urine Nitrite Urine Bilirubin Urine Urobilinogen Ur Leukocyte Esterase Urine WBC (Auto) Urine RBC (Auto) U Hyaline Cast (Auto) U Epithel Cells (Auto) Urine Bacteria (Auto) Digoxin SARS-CoV-2, RNA, NAAT 06/13/22 06/13/22 06/13/22 13:06 13:13 13:38 WBC RBC Hgb Hct MCV MCH MCHC RDW Std Deviation RDW Coeff of Colleen Plt Count MPV Immature Gran % (Auto) Neut % (Auto) Lymph % (Auto) [place] % (Auto) Eos % (Auto) Baso % (Auto) Neut # (Auto) Lymph # (Auto) [place] # (Auto) Eos # (Auto) Baso # (Auto) Immature Gran # (Auto) Platelet Estimate PT INR APTT PTT Ratio VBG pH VBG pCO2 VBG pO2 VBG HCO3 VBG O2 Saturation VBG Base Excess Sodium Potassium Chloride Carbon Dioxide Anion Gap BUN Creatinine Est Cr Clr Drug Dosing Est GFR ( Amer) Est GFR (Non-Af Amer) BUN/Creatinine Ratio Glucose Estimat Average Glucose Hemoglobin A1c Lactate Calcium Magnesium Total Bilirubin Direct Bilirubin AST ALT Alkaline Phosphatase Total Creatine Kinase Troponin I High Sens Total Protein Albumin Globulin Albumin/Globulin Ratio Triglycerides Cholesterol LDL Cholesterol, Calc VLDL Cholesterol, Calc HDL Cholesterol Cholesterol/HDL Ratio Procalcitonin Urine Color Dark Yellow Urine Appearance Clear Urine pH 6.0 Ur Specific [place] 1.022 Urine Protein Trace H Urine Glucose (UA) Negative Urine Ketones 2+ H Urine Blood Negative Urine Nitrite Negative Urine Bilirubin Negative Urine Urobilinogen Negative Ur Leukocyte Esterase Negative Urine WBC (Auto) 1-5 Urine RBC (Auto) 0-4 U Hyaline Cast (Auto) 1-5 U Epithel Cells (Auto) >30 H Urine Bacteria (Auto) Negative Digoxin < 0.3 L SARS-CoV-2, RNA, NAAT NEGATIVE 06/13/22 06/13/22 06/13/22 14:51 14:51 16:18 WBC RBC Hgb Hct MCV MCH MCHC RDW Std Deviation RDW Coeff of Colleen Plt Count MPV Immature Gran % (Auto) Neut % (Auto) Lymph % (Auto) [place] % (Auto) Eos % (Auto) Baso % (Auto) Neut # (Auto) Lymph # (Auto) [place] # (Auto) Eos # (Auto) Baso # (Auto) Immature Gran # (Auto) Platelet Estimate PT 12.8 H INR 1.2 H APTT 26.6 PTT Ratio 1.0 VBG pH VBG pCO2 VBG pO2 VBG HCO3 VBG O2 Saturation VBG Base Excess Sodium Potassium Chloride Carbon Dioxide Anion Gap BUN Creatinine Est Cr Clr Drug Dosing Est GFR ( Amer) Est GFR (Non-Af Amer) BUN/Creatinine Ratio Glucose Estimat Average Glucose Hemoglobin A1c Lactate 1.8 Calcium Magnesium Total Bilirubin Direct Bilirubin AST ALT Alkaline Phosphatase Total Creatine Kinase Troponin I High Sens 44.6 H Total Protein Albumin Globulin Albumin/Globulin Ratio Triglycerides Cholesterol LDL Cholesterol, Calc VLDL Cholesterol, Calc HDL Cholesterol Cholesterol/HDL Ratio Procalcitonin Urine Color Urine Appearance Urine pH Ur Specific [place] Urine Protein Urine Glucose (UA) Urine Ketones Urine Blood Urine Nitrite Urine Bilirubin Urine Urobilinogen Ur Leukocyte Esterase Urine WBC (Auto) Urine RBC (Auto) U Hyaline Cast (Auto) U Epithel Cells (Auto) Urine Bacteria (Auto) Digoxin SARS-CoV-2, RNA, NAAT 06/13/22 06/14/22 06/14/22 22:36 04:32 04:32 WBC 13.70 H RBC 3.51 L Hgb 12.0 Hct 35.1 MCV 100.0 MCH 34.2 H MCHC 34.2 RDW Std Deviation 49.8 H RDW Coeff of Colleen 13.5 Plt Count 129 L MPV 11.5 Immature Gran % (Auto) 0.5 Neut % (Auto) 77.9 Lymph % (Auto) 10.6 [place] % (Auto) 9.8 Eos % (Auto) 0.9 Baso % (Auto) 0.3 Neut # (Auto) 10.68 H Lymph # (Auto) 1.45 [place] # (Auto) 1.34 H Eos # (Auto) 0.12 Baso # (Auto) 0.04 Immature Gran # (Auto) 0.07 H Platelet Estimate Decreased L PT INR APTT PTT Ratio VBG pH VBG pCO2 VBG pO2 VBG HCO3 VBG O2 Saturation VBG Base Excess Sodium Potassium Chloride Carbon Dioxide Anion Gap BUN Creatinine Est Cr Clr Drug Dosing Est GFR ( Amer) Est GFR (Non-Af Amer) BUN/Creatinine Ratio Glucose Estimat Average Glucose Hemoglobin A1c Lactate Calcium Magnesium Total Bilirubin Direct Bilirubin AST ALT Alkaline Phosphatase Total Creatine Kinase Troponin I High Sens 37.8 H Cancelled Total Protein Albumin Globulin Albumin/Globulin Ratio Triglycerides Cholesterol LDL Cholesterol, Calc VLDL Cholesterol, Calc HDL Cholesterol Cholesterol/HDL Ratio Procalcitonin Urine Color Urine Appearance Urine pH Ur Specific [place] Urine Protein Urine Glucose (UA) Urine Ketones Urine Blood Urine Nitrite Urine Bilirubin Urine Urobilinogen Ur Leukocyte Esterase Urine WBC (Auto) Urine RBC (Auto) U Hyaline Cast (Auto) U Epithel Cells (Auto) Urine Bacteria (Auto) Digoxin SARS-CoV-2, RNA, NAAT 06/14/22 06/14/22 06/14/22 04:32 04:32 04:32 WBC RBC Hgb Hct MCV MCH MCHC RDW Std Deviation RDW Coeff of Colleen Plt Count MPV Immature Gran % (Auto) Neut % (Auto) Lymph % (Auto) [place] % (Auto) Eos % (Auto) Baso % (Auto) Neut # (Auto) Lymph # (Auto) [place] # (Auto) Eos # (Auto) Baso # (Auto) Immature Gran # (Auto) Platelet Estimate PT 13.0 H INR 1.2 H APTT PTT Ratio VBG pH VBG pCO2 VBG pO2 VBG HCO3 VBG O2 Saturation VBG Base Excess Sodium 138 Potassium 3.8 Chloride 108 H Carbon Dioxide 25 Anion Gap 5 BUN 25 H Creatinine 0.57 L Est Cr Clr Drug Dosing Not Reportable Est GFR ( Amer) 99.4 Est GFR (Non-Af Amer) 85.7 BUN/Creatinine Ratio 43.9 H Glucose 120 H Estimat Average Glucose 108 Hemoglobin A1c 5.4 Lactate Calcium 8.5 Magnesium Total Bilirubin 1.4 H Direct Bilirubin 0.3 H AST 44 H ALT 23 Alkaline Phosphatase 49 Total Creatine Kinase 440 H Troponin I High Sens 32.6 H Total Protein 5.9 L Albumin 3.0 L Globulin Albumin/Globulin Ratio Triglycerides 111 Cholesterol 168 LDL Cholesterol, Calc 108 VLDL Cholesterol, Calc 22 HDL Cholesterol 38 Cholesterol/HDL Ratio 4.4 Procalcitonin Urine Color Urine Appearance Urine pH Ur Specific [place] Urine Protein Urine Glucose (UA) Urine Ketones Urine Blood Urine Nitrite Urine Bilirubin Urine Urobilinogen Ur Leukocyte Esterase Urine WBC (Auto) Urine RBC (Auto) U Hyaline Cast (Auto) U Epithel Cells (Auto) Urine Bacteria (Auto) Digoxin SARS-CoV-2, RNA, NAAT 06/14/22 10:03 WBC RBC Hgb Hct MCV MCH MCHC RDW Std Deviation RDW Coeff of Colleen Plt Count MPV Immature Gran % (Auto) Neut % (Auto) Lymph % (Auto) [place] % (Auto) Eos % (Auto) Baso % (Auto) Neut # (Auto) Lymph # (Auto) [place] # (Auto) Eos # (Auto) Baso # (Auto) Immature Gran # (Auto) Platelet Estimate PT INR APTT PTT Ratio VBG pH VBG pCO2 VBG pO2 VBG HCO3 VBG O2 Saturation VBG Base Excess Sodium Potassium Chloride Carbon Dioxide Anion Gap BUN Creatinine Est Cr Clr Drug Dosing Est GFR ( Amer) Est GFR (Non-Af Amer) BUN/Creatinine Ratio Glucose Estimat Average Glucose Hemoglobin A1c Lactate Calcium Magnesium Total Bilirubin Direct Bilirubin AST ALT Alkaline Phosphatase Total Creatine Kinase Troponin I High Sens 28.4 H Total Protein Albumin Globulin Albumin/Globulin Ratio Triglycerides Cholesterol LDL Cholesterol, Calc VLDL Cholesterol, Calc HDL Cholesterol Cholesterol/HDL Ratio Procalcitonin Urine Color Urine Appearance Urine pH Ur Specific [place] Urine Protein Urine Glucose (UA) Urine Ketones Urine Blood Urine Nitrite Urine Bilirubin Urine Urobilinogen Ur Leukocyte Esterase Urine WBC (Auto) Urine RBC (Auto) U Hyaline Cast (Auto) U Epithel Cells (Auto) Urine Bacteria (Auto) Digoxin SARS-CoV-2, RNA, NAAT Diagnostic Findings Abdomen/Pelvis CT 06/13/22 12:37 CT SCAN OF THE ABDOMEN AND PELVIS WITHOUT IV CONTRAST CLINICAL HISTORY: Fall. Change in mental status. COMPARISON STUDY: Abdominal CT dated 05/25/2018. TECHNIQUE: CT scan of the abdomen and pelvis is performed from the lung bases to the proximal femora. Images are reviewed in the axial, sagittal, and coronal planes. IV contrast was not administered for this examination. Note that the examination is significantly suboptimal without oral and IV contrast. There is also motion artifact, as well as streak artifact from the arms which could not be elevated above the abdomen. A dose lowering technique was utilized adhering to the principles of ALARA. CT DOSE: 1264.05 mGy.cm FINDINGS: Lung bases: The heart is enlarged and without pericardial effusion. The pulmonary arteries is densely calcified. There is a small hiatal hernia. The lung bases are clear noting bibasilar scarring/atelectasis. Liver: Evaluation of the liver are significantly degraded by streak artifact. The unenhanced liver is normal in size, contour, and attenuation. There is no intrahepatic biliary ductal dilatation. A 2.3 cm ovoid nearly isodense structure along the inferior margin of liver is unchanged. Gallbladder: Unremarkable. Spleen: Normal in size and attenuation. Pancreas: The unenhanced pancreas is moderately atrophic and grossly unremarkab le. Adrenal glands: Unremarkable. Kidneys: The unenhanced kidneys are normal in size. There is mild to moderate bilateral hydroureteronephrosis, likely related to the greater bladder distention. There are least 2 punctate nonobstructing left renal calculi. A single punctate calculus is seen on the right. There is no evidence of contour deforming renal mass lesion. Abdominal vasculature: The abdominal aorta is normal in course and caliber noting advanced atherosclerotic calcification. Bowel: There is advanced colonic diverticulosis without CT evidence of acute diverticulitis. No bowel obstruction is identified. Mild fecal retention is seen throughout the colon. The appendix is normal as imaged. Peritoneum: There is no intraperitoneal free air or abdominal ascites. Lymphadenopathy: None. Pelvic viscera: The bladder is markedly distended. A 2.5 cm bladder diverticulum is seen along the right superior aspect of the bladder wall on image #300. The uterus and adnexa are normal as visualized. Skeletal structures: The skeletal structures are osteopenic. The lumbosacral spine, bony pelvis, and proximal femora appear intact. There is moderate lumbosacral spondylosis and scoliosis. Advanced arthritic change is seen in the hips. No lytic or blastic lesions are seen. IMPRESSION: 1. Significantly suboptimal examination without oral or IV contrast. There is also streak and motion artifact. 2. There is no evidence of solid organ injury in the abdomen or pelvis on this unenhanced examination. 3. Severe bladder distention. 4. Moderate bilateral hydroureteronephrosis is likely related to bladder distention. 5. Cardiomegaly. 6. Advanced colonic diverticulosis without CT evidence of acute diverticulitis. 7. Bilateral nephrolithiasis. 8. Additional findings as above. ACT 112: Negative or not required by law. Electronically signed by: Macho Blount M.D. 06/13/2022 2:[address] 06/13/22 12:37 CT cervical spine wo con CLINICAL HISTORY: fall TECHNIQUE: Multidetector row helical CT of the cervical spine was performed without administration of intravenous contrast. Coronal and sagittal reform ations were obtained. Automated dose lowering techniques and/or adjustment according to patient size were utilized for this exam. Comparison: None available at the time of this dictation. FINDINGS: No acute fractures or subluxations are identified. Degenerative changes are seen in the visualized spine. Likely old calcific densities are seen for example at the spinous process of C5 or at the left transverse process of C5. Prominent lordosis of the cervical spine is seen, likely chronic. A calcific density to the right of C1 is likely chronic. Partial visualization of bilateral carotid bu lb calcifications. IMPRESSION: Prominent degenerative changes without evidence of acute fracture. ACT 112: Negative or not required by law. Electronically signed by: Isidro Romero M.D. 06/13/2022 2:50 PM Chest X-Ray 06/13/22 12:37 XR chest 1V portable CLINICAL HISTORY: SEPSIS TECHNIQUE: Single frontal radiograph of the chest was obtained. Comparison: Comparison is made to chest radiograph 02/21/2022 FINDINGS: No lines and tubes are seen. Cardiomegaly is noted. Reticular interstitial opacities are seen. No evidence of pleural effusion or pneumothorax. Degenerative changes are seen in the spine and shoulder joints. IMPRESSION: No acute chest disease. ACT 112: Negative or not required by law. Electronically signed by: Isidro Romero M.D. 06/13/2022 1:[address] 06/13/22 12:37 CT OF THE HEAD WITHOUT CONTRAST CLINICAL HISTORY: Fall. COMPARISON STUDY: MRI of the brain June 22, 2021. Head CT February 21, 2022. TECHNIQUE: Helical axial images of the head were obtained without IV contrast. Automated exposure control was utilized for the study. A dose lowering technique was utilized adhering to the principles of ALARA. FINDINGS: No acute intracranial hemorrhage is present. Note is made of a new 7 x 2.9 cm hypodense focus with loss of byrne-white differentiation within the right temporal lobe. This was not present on CT of February 21, 2022. There is no significant mass effect. White matter hypodensity suggests small vessel disease. Ventricular system is normal. Basal cisterns are patent. There are no extra axial collections. A 1.7 cm lytic right parietal bone lesion on axial image 2428 is noted. This is unchanged since CT of February 21, 2022. This is new since head CT of July 06, 2020. Right upper neck and occipital edema is incidentally noted. IMPRESSION: 1. No acute intracranial hemorrhage. No acute calvarial fracture. 2. 7 x 2.9 cm hypodense focus with loss of byrne-white differentiation within the right temporal lobe which is new since head CT of February 21, 2022. Although age indeterminate, the appearance favors a large subacute right MCA territory infarct. Imaging follow-up is recommended to ensure expected evolution is recommended. ACT 112: Negative or not required by law. Electronically signed by: Ramin Alfaro M.D. 06/13/2022 2:57 PM Head CTA 06/13/22 19:24 CTA ANGIOGRAPHY OF THE HEAD CLINICAL HISTORY: right sided CVA COMPARISON STUDY: Head CT and MRI of the brain performed earlier today. Head CT February 21, 2022. TECHNIQUE: Helical axial images of the head were obtained following uneventful intravenous administration of 118 cc of Optiray. Sagittal and coronal reconstructions were viewed as well as maximal intensity projections on an independent 3-D workstation. Automated exposure control was utilized for the study. A dose lowering technique was utilized adhering to the principles of ALARA. CT DOSE: 778.81 mGy.cm FINDINGS: No acute intracranial hemorrhage is identified although sensitivity is diminished on this contrast enhanced exam. Note is again made of a large infarct within the right temporal lobe which measures approximately 10 x 3.2 cm. There is no midline shift. There is no significant compression of the right lateral ventricle. There is moderate calcified plaque within the bilateral cavernous carotids without stenosis. Note is made of occlusion of a right M2 branch which supplies the right temporal lobe. This is shown on axial image 126 of 282. There is intraluminal clot. This accounts for the infarct shown on head CT and MRI of the brain. No additional sites of vessel occlusion are present. There is persistence of the right posterior cerebral artery. No intracranial aneurysm is present. There is no dissection within the intracranial vessels. IMPRESSION: 1. Intraluminal clot with occlusion of a right M2 branch which supplies the right temporal lobe and accounts for the large acute infarct within the right temporal lobe, as shown on MRI. 2. No additional sites of vessel occlusion. 3. No intracranial aneurysm. ACT 112: Negative or not required by law. Electronically signed by: Ramin Alfaro M.D. 06/14/2022 7:32 AM Neck CTA 06/13/22 19:24 NECK CTA HISTORY: right sided cva TECHNIQUE: Multiaxial CT images of the neck were performed following the intravenous administration of contrast to evaluate the major cervical vessels. Maximum intensity projection images were also obtained. All measurements were calculated based on NASCET criteria. A dose lowering technique was utilized adhering to the principles of ALARA. COMPARISON STUDY: None. FINDINGS: The aortic arch and proximal great vessels are widely patent. There is no significant stenosis, occlusion, or dissection identified within the bilateral common carotid, internal carotid, or vertebral arteries. Mild to moderate calcified plaque within the bilateral carotid bifurcations. 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 IMPRESSION: No significant stenosis, occlusion, or dissection identified within the carotid or vertebral arteries. ACT 112: Negative or not required by law. Electronically signed by: Fransisco Rushing M.D. 06/14/2022 7:16 AM Brain MRI 06/13/22 19:25 Brain MRI WITH AND WITHOUT CONTRAST HISTORY: Left-sided weakness. Confusion. TECHNIQUE: Multiplanar multisequence MRI of the brain was performed both before and after the intravenous administration of contrast. COMPARISON STUDY: Head CT 06/13/2022. FINDINGS: There is 11 cm area of restricted diffusion involving the right parietal and temporal lobes consistent with a large acute right MCA territory infarct. There is associated cytotoxic edema at the area of infarct. No significant midline shift or mass effect. Paravertebral white matter T2 hyperintensity is nonspecific but favors microvascular ischemic change. The ventricles and sulci demonstrate mild age-related involutional changes. No intracranial hemorrhage identified. Postcontrast sequences show no areas of abnormal enhancement. The paranasal sinuses and mastoid air cells are clear. Evidence for prior bilateral lens replacement. The major vascular flow-voids at the skull base are maintained. IMPRESSION: Confirmation of the acute large right MCA territory infarct as described above. No midline shift or intracranial hemorrhage identified at this time. ACT 112: Negative or not required by law. Electronically signed by: Fransisco Rushing M.D. 06/14/2022 7:24 AM Hip/Pelvis X-Ray 06/14/22 00:27 XR hip 1V RT w pelvis CLINICAL HISTORY: fall, hip pain COMPARISON: CT of the abdomen and pelvis June 13, 2022. FINDINGS: Balderas catheter is in place. There is contrast within the bladder, collecting systems and ureters from recent contrast-enhanced CT. No acute fracture within the pelvis or hips is identified. There is severe bilateral hip osteoarthritis. Sacroiliac joints and symphysis pubis are intact. IMPRESSION: 1. No acute fracture within the pelvis or hips. 2. Severe bilateral hip osteoarthritis. ACT 112: Negative or not required by law. Electronically signed by: Ramin Alfaro M.D. 06/14/2022 7:33 AM (1) Rhabdomyolysis Rhabdomyolysis type: non-traumatic Qualified Code(s): M62.82 - Rhabdomyolysis
[2022-06-14] MEDS ORDERED: Nursing to Pharmacy Communication SCH (11:30)
--- NOTE | 2022-06-14 12:45 | XCELERA ---
[id number]
[2022-06-14] MEDS ORDERED: ASPIRIN 300 MG SUPP PR SCH (13:30)
[2022-06-14] MEDS ORDERED: Patient's HEIGHT &/or WEIGHT Needed SCH (13:30)
--- NOTE | 2022-06-14 13:35 | Hospitalist Progress Note ---
Date of Service June 14, 2022 Assessment & Plan (1) Acute ischemic cerebrovascular accident (CVA) involving right middle c erebral artery territory: Plan: - Head CT shows a 7 x 2.9 cm hypodense focus with loss of byrne-white differentiation within the right temporal lobe. MRI confirms large acute R MCA infarct. * Most likely secondary to not taking Xarelto in setting of permanent Afib - Head CTA confirms intraluminal clot w/ occlusion of a R M2 branch which supplies the R temporal lobe and accounts for large infarct thus supporting cardioembolic stroke - Neck CTA w/o significant stenosis, occlusion, or dissection of carotid or vertebral arteries - Echo completed and results as note above. - Continue NPO status until such time pt is more awake/alert enough to swallow/follow commands - PT, OT, ST to evaluate in a.m. - Permissive HTN allowed, BP low-normal this AM. She was placed on Dilt gtt for afib rate control but may need to hold to allow for HTN - Neurology consult placed, appreciate recommendations. Resume [place] ASA 300mg daily. Repeat CT head to monitor for hemorrhagic conversion. If no conversion, can resume Xarelto in 2 days. If cannot take PO, will start on Heparin gtt infusion. - Transitioned off cpap to nasal cannula - Resume Lipitor to aid in cerebral edema when/if able to take PO and would increase to 40mg (usually takes 20mg) (2) Atrial fibrillation with rapid ventricular response: Plan: - Permanent. Managed on Xarelto, as well as digoxin and Cardizem for rate contr ol, however has likely not had these medications in nearly one week. - Dig level <0.3. Goal digoxin < 1.0 per cardiology. - Patient with HR in [id number] in ED, started on dilt drip without bolus. Has not been able to tolerate b-blockers in the past. - hold off on heparin gtt as per Neurology due to high risk of hemorrhagic conversion - Again, may need to hold Dilt gtt to allow for permissive htn - Could consider use of IV Dig or scheduled LOW DOSE IV Lopressor to control rate if needed (3) Rhabdomyolysis: Plan: - CK 1274, patient down on ground for unknown amount of time. Renal function about her baseline. Initial lactate 2.3, down to 1.8 after 500 cc NS bolus x2 in ED. - Continue IVF, repeat CK this AM down to 440 - No longer w/ rhabdo - Change fluids to NSS at 100 ml/hr (4) Pressure ulcer: Plan: - Patient had been down on ground for an unknown number of hours. There is some skin breakdown around the sacral region. - Wound care consult placed. (5) CAD (coronary artery disease): Plan: - Mild, nonobstructive CAD noted in the past. CT scan in 2018 demonstrated densely calcified coronary arteries per report. Negative myocardial perfusion study in 2018. - EKG in ED does show some ST and T wave abnormalities in inferior and anterolateral leads, initial troponin 45.4, repeat several hours later 44.6. - Patient without chest pain or dyspnea. - Initial HS trop 37.8 --> 28.4 (6) Hypertension: Plan: - Holding ramipril and diltiazem while NPO - Can resume when able to swallow/follow commands depending on BP readings - Again, need to allow for permissive HTN (7) Dyslipidemia: Plan: - May continue statin when patient is alert enough for p.o. meds. (8) Malignant neoplasm of upper-outer quadrant of right breast in female, est rogen receptor positive: Plan: - s/p right mastectomy, on tamoxifen prophylactically which is on hold d/t NPO status (9) Severe obstructive sleep apnea: Plan: - Continue CPAP at night. (10) Hypothyroidism: Plan: - Holding p.o. meds for now, will order IV Levothyroxine 37.5mcg daily until able to take PO TSH normal in 02/2022 (11) Depression: Plan: - Holding p.o. meds for now, can continue Effexor when alert enough to tolerate p.o. meds. (12) Insomnia: Plan: - Hold temazepam. (13) Acute urinary retention: Plan: - bladder distended with bilat hydronephrosis on CT abd/pel - placed Balderas catheter - likely neurogenic in nature Plan DVT ppx advised by neuro-will start on Lovenox 40mg sq daily. Repeat labs in AM. Resume ASA as above. PT/OT/ST consults. Wean O2 as able. Hold Diltiazem to allow for permissive HTN. Will address rate issues if needed. Continue IVF hydration. Pt does have a designated medical POA, Efrain Mendiola, . Paperwork to be faxed to case management. I have provided telephone update to him as well as a bedside update to patient's close friend, Carlie. Prognosis remains guarded at this time. She is a DNR/DNI. Plan d/w Dr. Connors. Admission and Anticipated Discharge Date Admission Date: June 13, 2022 Subjective Patient seen on daily rounds this morning. Patient hospitalized with large ischemic CVA. On cpap at the time of my visit, would awaken to her name but not following any commands and not answering any questions/conversing. Per RN, she has been comfortable this morning and no concerns raised. She currently does not have a legally appointed POA, but close friend, Carlie, is involved in her care and is able/willing to assist in making decisions on behalf of the patient if she is unable to do so for herself. Review of Systems Review of Systems: Unobtainable due to patient's current condition Physical Exam Physical Exam: GENERAL: 82 yo Well-developed, well-nourished elderly WF. NAD. LUNGS: Clear to auscultation bilaterally. No accessory muscle use. No W/R/R. CARDIOVASCULAR: Irregular rhythm with controlled rate ABDOMEN: Soft, non-distended. BS normoactive x 4 quad. EXTREMITIES: No edema. Peripheral pulses +2/4. NEUROLOGIC: Opens eyes to name but does not follow commands. PSYCHIATRIC: Calm. SKIN: Warm, dry, intact. superficial sacral skin breakdown noted Results & Data Results & Data ([facility]) Vital Signs (Past 12 Hours) Vital Signs Temp Pulse Pulse Resp BP Pulse Ox O2 Del Method 06/14/22 10:56 100 Nasal Cannula 06/14/22 08:00 80 06/14/22 08:00 Room Air, CPAP 06/14/22 07:54 36.8 C 82 15 106/56 L 98 BiPAP 06/14/22 06:00 80 103/54 L 06/14/22 05:00 93 H 110/55 L 06/14/22 04:06 36.8 C 20 118/57 L 88 L BiPAP 06/14/22 03:55 85 28 H 96 06/14/22 02:00 85 110/51 L O2 Flow Rate 06/14/22 10:56 4 06/14/22 08:00 06/14/22 08:00 06/14/22 07:54 06/14/22 06:00 06/14/22 05:00 06/14/22 04:06 06/14/22 03:55 06/14/22 02:00 Laboratory Results 06/14/22 04:32 06/14/22 04:32 Diagnostic Findings Echo: 06/14/22 1. Normal left ventricular size and systolic function. EF 60-65%. No regional wma. Moderate concentric LVH. 2. Normal right ventricular size with mildly reduced systolic function. 3. Severe left atrial dilation. 4. Moderate right atrial dilation. 5. Mitral annular calcification. 6. Normal estimated right ventricular systolic pressure; RVSP 34 mmHg 7. Atrial fibrillation. 8. No visualized right to left inter atrial shunt noted following agitated saline administration. PG Care Time/CCT Total # of Minutes Spent Total Time Spent with Patient: Total time spent is greater than 50% in coordination of care (as documented) at patient's floor/unit and/or counseling patient: Coding Level of Care Code 49646 Subseq Hosp Care Lvl 3 Diagnoses 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 (1) Rhabdomyolysis Rhabdomyolysis type: non-traumatic Qualified Code(s): M62.82 - Rhabdomyolysis (2) Pressure ulcer Laterality: unspecified laterality Pressure injury location: buttock Pre ssure injury stage: stage 1 Qualified Code(s): L89.301 - Pressure ulcer of unspecified buttock, stage 1
[2022-06-14] MEDS: SODIUM CHLORIDE 0.9% 1000ML 1,000 ML IV SCH (13:56)
--- NOTE | 2022-06-14 14:07 | Electrocardiogram Report ---
Test Reason : Blood Pressure : / mmHG Vent. Rate : 097 BPM Atrial Rate : 090 BPM P-R Int : 000 ms QRS Dur : 092 ms QT Int : 364 ms P-R-T Axes : 000 081 255 degrees QTc Int : 462 ms Poor data quality, interpretation may be adversely affected Atrial fibrillation Abnormal ECG When compared with ECG of 13-JUN-2022 12:48, ST less depressed in Anterior leads Confirmed by Dominic Marques ([id number]) on 06/14/2022 2:07:26 PM Referred By: Dinesh Salcedo Confirmed By:Dominic Marques
[2022-06-14] MEDS: ENOXAPARIN INJ 40 MG/0.4 ML SYR SQ SCH (16:32)
[2022-06-14] MEDS: DIGOXIN 0.125 MG TAB PO SCH (16:56)
[2022-06-14] MEDS: ATORVASTATIN 40 MG TAB PO SCH (21:47)
[2022-06-14] MEDS: VENLAFAXINE HCL XR 75 MG CAPXR PO SCH (22:28)
[2022-06-14] MEDS ORDERED: HALOPERIDOL LACTATE 5 MG/ML 1 ML VIAL IM STA (23:35)
[2022-06-15] MEDS: SODIUM CHLORIDE 0.9% 1000ML 1,000 ML IV SCH ×3 (00:13→21:13)
[2022-06-15 06:22] LABS: Basophils # (auto) 0.04 K/uL (0-0.2); Basophils % (auto) 0.5 %; Eosinophils % (auto) 3.5 %; Hematocrit (blood only) 30.5 % (34.1-44.9); Hemoglobin 10.3 g/dl (12.0-16.0); Immature Granulocytes # (auto) 0.04 K/uL (0.00-0.02); Immature Granulocytes % (auto) 0.5 %; Lymphocytes # (auto) 1.46 K/uL (1.2-3.4); Lymphocytes % (auto) 17.1 %; Mean Corpuscular Hemoglobin 34.2 pg (25.0-34.0); Mean Corpuscular Hgb Conc 33.8 g/dL (32.0-36.0); Mean Corpuscular Volume 101.3 fL (80.0-100.0); Mean Platelet Volume 11.9 fL (9.4-12.3); Monocytes # (auto) 0.76 K/uL (0.24-0.82); Monocytes % (auto) 8.9 %; Neutrophils # (auto) 5.94 K/uL (1.4-6.5); Neutrophils % (auto) 69.5 %; Platelet Count 116 K/uL (130-400); RDW Standard Deviation 48.8 fL (36.4-46.3); Red Blood Count 3.01 M/uL (3.93-5.22); White Blood Count 8.54 K/ul (4.8-10.8)
[2022-06-15] MEDS: LEVOTHYROXINE SODIUM 75 MCG TABLET PO SCH (06:44)
[2022-06-15 06:53] LABS: BUN Creatinine Ratio 32.6 (10-20); Calcium 7.8 mg/dl (8.5-10.1); Est GFR (Non-African American) 94.1 ml/min; Potassium 3.4 mmol/L (3.5-5.1)
[2022-06-15 07:05] LABS: INR 1.3 (0.9-1.1); Prothrombin Time 13.8 Seconds (9.0-12.0)
[2022-06-15] MEDS ORDERED: LEVOTHYROXINE SODIUM 37.5 MCG in SYRINGE 0 ML IV SCH (09:00)
[2022-06-15] MEDS ORDERED: POTASSIUM CHLORIDE 20 MEQ/15 ML UDC PO STA (09:01)
[2022-06-15] MEDS: ENOXAPARIN INJ 40 MG/0.4 ML SYR SQ SCH (09:25)
[2022-06-15] MEDS: TAMOXIFEN CITRATE 10 MG TABLET PO SCH (10:42)
[2022-06-15] MEDS: ASPIRIN 325 MG ECTAB PO SCH (10:42)
--- NOTE | 2022-06-15 10:58 | Hospitalist Progress Note ---
Date of Service June 15, 2022 Assessment & Plan (1) Acute ischemic cerebrovascular accident (CVA) involving right middle c erebral artery territory: Plan: - Head CT shows a 7 x 2.9 cm hypodense focus with loss of byrne-white differentiation within the right temporal lobe. MRI confirms large acute R MCA infarct. * Most likely secondary to not taking Xarelto in setting of permanent Afib - Head CTA confirms intraluminal clot w/ occlusion of a R M2 branch which supplies the R temporal lobe and accounts for large infarct thus supporting cardioembolic stroke - Neck CTA w/o significant stenosis, occlusion, or dissection of carotid or vertebral arteries - Echo completed and results reviewed. - PT, OT, ST evaluated pt on 06/14. Advised SNF upon d/c. REFLEXOLOGIST ordered pureed diet. - Permissive HTN allowed, BP low-normal this AM. She was placed on Dilt gtt for afib rate control but was stopped to allow for permissive HTN - Neurology consult placed, appreciate recommendations. Resumed ASA daily. - Transitioned off cpap to nasal cannula and this AM is on room air - Lipitor resumed at higher dose of 40mg at HS. - Repeat head CT tomorrow morning to ensure no hemorrhagic conversion. If none noted, can resume Xarelto. (2) Atrial fibrillation with rapid ventricular response: Plan: - Permanent. Managed on Xarelto, as well as digoxin and Cardizem for rate control, however has likely not had these medications in nearly one week. - Dig level <0.3. Goal digoxin < 1.0 per cardiology. - Patient with HR in 000695c in ED, started on dilt drip without bolus. Has not been able to tolerate b-blockers in the past. - Diltiazem gtt stopped 06/14 to allow for permissive HTN and she was started on some IVF - Resumed Digoxin 06/14. Rate currently controlled. - Resume Xarelto if no evidence of hemorrhagic conversion (3) Rhabdomyolysis: Plan: - CK 1274, patient down on ground for unknown amount of time. Renal function about her baseline. Initial lactate 2.3, down to 1.8 after 500 cc NS bolus x2 in ED. - Continue IVF, repeat CK this AM down to 440 - No longer w/ rhabdo - Change fluids to NSS at 100 ml/hr-will cap (4) Pressure ulcer: Plan: - Patient had been down on ground for an unknown number of hours. There is some skin breakdown around the sacral region. - Wound care consult placed, appreciate assistance. Frequent positioning/offload pressure. (5) CAD (coronary artery disease): Plan: - Mild, nonobstructive CAD noted in the past. CT scan in 2018 demonstrated densely calcified coronary arteries per report. Negative myocardial perfusion study in 2018. - EKG in ED does show some ST and T wave abnormalities in inferior and anterolateral leads, initial troponin 45.4, repeat several hours later 44.6. - Patient without chest pain or dyspnea. - Initial HS trop 37.8 --> 28.4 (6) Hypertension: Plan: - Ramipril and diltiazem held while NPO - Can resume when able to swallow/follow commands depending on BP readings - Again, need to allow for permissive HTN (BP meds remain on hold) (7) Dyslipidemia: Plan: - Resumed Lipitor at increased dose (8) Malignant neoplasm of upper-outer quadrant of right breast in female, estrogen receptor positive: Plan: - s/p right mastectomy, on tamoxifen prophylactically which is on hold d/t NPO status (9) Severe obstructive sleep apnea: Plan: - Continue CPAP at night. (10) Hypothyroidism: Plan: - Resumed Levothyroxine 75mcg on 06/15 TSH normal in 02/2022 (11) Depression: Plan: - Resumed Venlafaxine (12) Insomnia: Plan: - Hold temazepam. (13) Acute urinary retention: Plan: - bladder distended with bilat hydronephrosis on CT abd/pel - placed Balderas catheter, continue for now - likely neurogenic in nature Plan DVT ppx advised by neuro-Started on Lovenox 40mg sq daily on 06/14 which will be stopped once she can resume her Xarelto. Repeat labs this AM are stable. K+ 3.4, replacement ordered. Pt does have a designated medical POA, Efrain Mendiola, . Paperwork received by case management. I have provided telephone update to him as well as a bedside update to patient's close friend, Carlie on 06/14. If repeat head CT is stable w/o hemorrhagic conversion could be able to go to [facility] as early as Monday. Prognosis remains guarded at this time. She is a DNR/DNI. Plan d/w Dr. Connors. Admission and Anticipated Discharge Date Admission Date: June 13, 2022 Subjective Patient was seen on rounds this morning. She is more awake/alert, answers questions appropriately. She has no complaints of pain. Per RN, she has been frequently stating "God please just let me go." It was discovered yesterday afternoon that she does have a legally appointed medical POA whose name and contact information is now on the chart. Review of Systems Review of Systems: All systems reviewed and are unremarkable except as noted i n HPI and below. Denies fever, chills, fatigue, headache, nasal congestion, sore throat, cough, chest pain, shortness of breath, palpitations, orthopnea, PND, abdominal pain, n/v/d, constipation, dysuria, hematuria, frequency, back pain, joint pain or swelling, easy bruising or bleeding, skin lesions or rashes. Physical Exam Physical Exam: GENERAL: 82 yo Well-developed, well-nourished elderly WF. NAD. LUNGS: Clear to auscultation bilaterally. No W/R/R. CARDIOVASCULAR: Irregular rhythm with controlled rate ABDOMEN: Soft, non-distended. BS normoactive x 4 quad. EXTREMITIES: No edema. Peripheral pulses +2/4. NEUROLOGIC: Awake, alert. Answers questions appropriately with yes/no. Some rep etitive speech pattern. L UE & LE hemiparesis PSYCHIATRIC: Calm, cooperative. Depressed mood. SKIN: Warm, dry, intact. superficial sacral skin breakdown noted Results & Data Results & Data ([facility]) Vital Signs (Past 12 Hours) Vital Signs Temp Pulse Pulse Resp BP BP Pulse Ox 06/15/22 08:38 76 06/15/22 08:38 06/15/22 07:51 36.6 C 78 16 128/61 94 06/15/22 03:00 36.9 C 77 18 120/64 96 06/14/22 23:08 77 26 H 100 O2 Del Method FiO2 06/15/22 08:38 06/15/22 08:38 Room Air, CPAP 06/15/22 07:51 Room Air 06/15/22 03:00 Room Air 06/14/22 23:08 21 Laboratory Results 06/15/22 05:48 06/15/22 05:48 PG Care Time/CCT Total # of Minutes Spent Total Time Spent with Patient: Total time spent is greater than 50% in coordination of care (as documented) at patient's floor/unit and/or counseling patient: Coding Level of Care Code 79326 Subseq Hosp Care Lvl 3 Diagnoses 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 (1) Rhabdomyolysis Rhabdomyolysis type: non-traumatic Qualified Code(s): M62.82 - Rhabdomyolysis (2) Pressure ulcer Laterality: unspecified laterality Pressure injury location: buttock Pressure injury stage: stage 1 Qualified Code(s): L89.301 - Pressure ulcer of unspecified buttock, stage 1
--- NOTE | 2022-06-15 12:24 | Neurology Progress Note ---
Date of Service June 15, 2022 Assessment & Plan (1) Acute ischemic cerebrovascular accident (CVA) involving right middle cerebral artery territory: (2) Atrial fibrillation with rapid ventricular response: (3) Rhabdomyolysis: Plan ASSESSMENT and PLAN/RECOMMENDATIONS: 1. Acute ischemic CVA, involving right MCA territory. Impression: The patient has long history of atrial fibrillation, on Xarelto. She was not compliant with treatment for at least 1 week. She was found on the floor, and imaging studies consistent with acute/subacute ischemic stroke, large, involving right MCA territory. Underlying etiology was most likely cardioembolic event. The patient was not a candidate for intravenous thrombolytic treatment or thrombectomy based on undefined stroke onset and sizable stroke. Neurologically stable and some improved since yesterday. Plan: Become so high hemorrhagic conversion risk, we will hold anticoagulation for 1 more day, and if repeat head CT shows no hemorrhage, then Eliquis or Xarelto should be started in 24-48 hrs. Until starting on anticoagulation, we will keep the patient on aspirin 81 mg po. Stop aspirin after starting on anticoagulation. Permissive hypertension until tomorrow. Hold Cardizem for now. IVF NS as needed to avoid hypotension. Physical therapy, Occupational Therapy, speech pathology evaluations. DVT prophylaxis will not increase hemorrhagic conversion risk. Lipitor 40 mg at bedtime. Repeat HCT w/o contrast tomorrow afternoon before starting on anticoagulation. The patient will probably need long-term rehabilitation. We will follow the patient's with you. 2. Atrial fibrillation Impression: The patient has been on Xarelto, but for unclear reason, she has not been compliant on this treatment for at least a week. On admission, ventricular rhythm was high. Plan: Rate is controlled on Digoxin. 3. Hyperlipidemia Impression: Current lipid panel showed elevated lipids. Plan: Lipitor 40 mg, with goal LDL level lower than 70. Admission and Anticipated Discharge Date Admission Date: June 13, 2022 Subjective Patient has been stable and neurologically much better today. She is started on po. Mental status and speech has been improving. She is currently alert and oriented. Some improvement of motor function as well. Denies headache. Still having left neglect. Review of Systems Review of Systems: All systems reviewed & are unremarkable except as noted in HPI & below Physical Exam Physical Exam: General Examination: Constitutional: Well developed person in no acute distress. HENT: Normal exam with inspection. CV: Hearth rhtyhm is irregularly irregular Neck: Supple, no carotid bruits. Lungs: Non-labored and comfortable breathing. Abdomen: Soft, non-tender, non-distended. Skin: No rash or ecchymosis. Extremities: No edema or cyanosis NEUROLOGICAL EXAMINATION: Mental Status: Somnolent but arousable, oriented to her name only. Cranial Nerves: II-XII are intact. No nystagmus. Funduscopy: Unable to visualize Motor: Essentially intact on the right, left arm strength is 3-/5 and left leg strength is 2+/5. Tone: Decreased tone on the left. DTRs: 1+ on the right and 2- on the left with left Babinsky. Sensory: Feels pinprick in all extremities. Coordination: Unable to assess Speech: She can make limited verbal output. Follows simple verbal commands when stimulated. Gait: Unable to assess Musculoskeletal: Normal muscle bulk, no atrophy. Results & Data ([facility]) Vital Signs (Past 12 Hours) Vital Signs Temp Pulse Pulse Resp BP BP Pulse Ox 06/15/22 08:38 76 06/15/22 08:38 06/15/22 07:51 36.6 C 78 16 128/61 94 06/15/22 03:00 36.9 C 77 18 120/64 96 O2 Del Method 06/15/22 08:38 06/15/22 08:38 Room Air, CPAP 06/15/22 07:51 Room Air 06/15/22 03:00 Room Air Laboratory Results Laboratory Results - last 24 hr 06/15/22 06/15/22 06/15/22 05:48 05:48 05:48 WBC 8.54 RBC 3.01 L Hgb 10.3 L Hct 30.5 L MCV 101.3 H MCH 34.2 H MCHC 33.8 RDW Std Deviation 48.8 H RDW Coeff of Colleen 13.0 Plt Count 116 L MPV 11.9 Immature Gran % (Auto) 0.5 Neut % (Auto) 69.5 Lymph % (Auto) 17.1 [place] % (Auto) 8.9 Eos % (Auto) 3.5 Baso % (Auto) 0.5 Neut # (Auto) 5.94 Lymph # (Auto) 1.46 [place] # (Auto) 0.76 Eos # (Auto) 0.30 Baso # (Auto) 0.04 Immature Gran # (Auto) 0.04 H PT 13.8 H INR 1.3 H Sodium 137 Potassium 3.4 L Chloride 108 H Carbon Dioxide 25 Anion Gap 4 BUN 14 Creatinine 0.43 L Est Cr Clr Drug Dosing 94.0 Est GFR ( Amer) 109.0 Est GFR (Non-Af Amer) 94.1 BUN/Creatinine Ratio 32.6 H Glucose 88 Calcium 7.8 L Diagnostic Findings Abdomen/Pelvis CT 06/13/22 12:37 CT SCAN OF THE ABDOMEN AND PELVIS WITHOUT IV CONTRAST CLINICAL HISTORY: Fall. Change in mental status. COMPARISON STUDY: Abdominal CT dated 05/25/2018. TECHNIQUE: CT scan of the abdomen and pelvis is performed from the lung bases to the proximal femora. Images are reviewed in the axial, sagittal, and coronal planes. IV contrast was not administered for this examination. Note that the examination is significantly suboptimal without oral and IV contrast. There is also motion artifact, as well as streak artifact from the arms which could not be elevated above the abdomen. A dose lowering technique was utilized adhering to the principles of ALARA. CT DOSE: 1264.05 mGy.cm FINDINGS: Lung bases: The heart is enlarged and without pericardial effusion. The pulmonary arteries is densely calcified. There is a small hiatal hernia. The lung bases are clear noting bibasilar scarring/atelectasis. Liver: Evaluation of the liver are significantly degraded by streak artifact. The unenhanced liver is normal in size, contour, and attenuation. There is no intrahepatic biliary ductal dilatation. A 2.3 cm ovoid nearly isodense structure along the inferior margin of liver is unchanged. Gallbladder: Unremarkable. Spleen: Normal in size and attenuation. Pancreas: The unenhanced pancreas is moderately atrophic and grossly unremarkable. Adrenal glands: Unremarkable. Kidneys: The unenhanced kidneys are normal in size. There is mild to moderate bilateral hydroureteronephrosis, likely related to the greater bladder distention. There are least 2 punctate nonobstructing left renal calculi. A single punctate calculus is seen on the right. There is no evidence of contour deforming renal mass lesion. Abdominal vasculature: The abdominal aorta is normal in course and caliber noting advanced atherosclerotic calcification. Bowel: There is advanced colonic diverticulosis without CT evidence of acute diverticulitis. No bowel obstruction is identified. Mild fecal retention is seen throughout the colon. The appendix is normal as imaged. Peritoneum: There is no intraperitoneal free air or abdominal ascites. Lymphadenopathy: None. Pelvic viscera: The bladder is markedly distended. A 2.5 cm bladder diverticulum is seen along the right superior aspect of the bladder wall on image #300. The uterus and adnexa are normal as visualized. Skeletal structures: The skeletal structures are osteopenic. The lumbosacral spine, bony pelvis, and proximal femora appear intact. There is moderate lumbosacral spondylosis and scoliosis. Advanced arthritic change is seen in the hips. No lytic or blastic lesions are seen. IMPRESSION: 1. Significantly suboptimal examination without oral or IV contrast. There is also streak and motion artifact. 2. There is no evidence of solid organ injury in the abdomen or pelvis on this unenhanced examination. 3. Severe bladder distention. 4. Moderate bilateral hydroureteronephrosis is likely related to bladder distention. 5. Cardiomegaly. 6. Advanced colonic diverticulosis without CT evidence of acute diverticulitis. 7. Bilateral nephrolithiasis. 8. Additional findings as above. ACT 112: Negative or not required by law. Electronically signed by: Macho Blount M.D. 06/13/2022 2:[address] 06/13/22 12:37 CT cervical spine wo con CLINICAL HISTORY: fall TECHNIQUE: Multidetector row helical CT of the cervical spine was performed without administration of intravenous contrast. Coronal and sagittal reformations were obtained. Automated dose lowering techniques and/or adjustment according to patient size were utilized for this exam. Comparison: None available at the time of this dictation. FINDINGS: No acute fractures or subluxations are identified. Degenerative changes are seen in the visualized spine. Likely old calcific densities are seen for example at the spinous process of C5 or at the left transverse process of C5. Prominent lordosis of the cervical spine is seen, likely chronic. A calcific density to the right of C1 is likely chronic. Partial visualization of bilateral carotid bulb calcifications. IMPRESSION: Prominent degenerative changes without evidence of acute fracture. ACT 112: Negative or not required by law. Electronically signed by: Isidro Romero M.D. 06/13/2022 2:50 PM Chest X-Ray 06/13/22 12:37 XR chest 1V portable CLINICAL HISTORY: SEPSIS TECHNIQUE: Single frontal radiograph of the chest was obtained. Comparison: Comparison is made to chest radiograph 02/21/2022 FINDINGS: No lines and tubes are seen. Cardiomegaly is noted. Reticular interstitial opacities are seen. No evidence of pleural effusion or pneumothorax. Degenerative changes are seen in the spine and shoulder joints. IMPRESSION: No acute chest disease. ACT 112: Negative or not required by law. Electronically signed by: Isidro Romero M.D. 06/13/2022 1:[address] 06/13/22 12:37 CT OF THE HEAD WITHOUT CONTRAST CLINICAL HISTORY: Fall. COMPARISON STUDY: MRI of the brain June 22, 2021. Head CT February 21, 2022. TECHNIQUE: Helical axial images of the head were obtained without IV contrast. Automated exposure control was utilized for the study. A dose lowering technique was utilized adhering to the principles of ALARA. FINDINGS: No acute intracranial hemorrhage is present. Note is made of a new 7 x 2.9 cm hypodense focus with loss of byrne-white differentiation within the right temporal lobe. This was not present on CT of February 21, 2022. There is no significant mass effect. White matter hypodensity suggests small vessel disease. Ventricular system is normal. Basal cisterns are patent. There are no extra axial collections. A 1.7 cm lytic right parietal bone lesion on axial image 2428 is noted. This is unchanged since CT of February 21, 2022. This is new since head CT of July 06, 2020. Right upper neck and occipital edema is incidentally noted. IMPRESSION: 1. No acute intracranial hemorrhage. No acute calvarial fracture. 2. 7 x 2.9 cm hypodense focus with loss of byrne-white differentiation within the right temporal lobe which is new since head CT of February 21, 2022. Although age indeterminate, the appearance favors a large subacute right MCA territory infarct. Imaging follow-up is recommended to ensure expected evolution is recommended. ACT 112: Negative or not required by law. Electronically signed by: Ramin Alfaro M.D. 06/13/2022 2:57 PM Head CTA 06/13/22 19:24 CTA ANGIOGRAPHY OF THE HEAD CLINICAL HISTORY: right sided CVA COMPARISON STUDY: Head CT and MRI of the brain performed earlier today. Head CT February 21, 2022. TECHNIQUE: Helical axial images of the head were obtained following uneventful intravenous administration of 118 cc of Optiray. Sagittal and coronal reconstructions were viewed as well as maximal intensity projections on an independent 3-D workstation. Automated exposure control was utilized for the study. A dose lowering technique was utilized adhering to the principles of ALARA. CT DOSE: 778.81 mGy.cm FINDINGS: No acute intracranial hemorrhage is identified although sensitivity is diminished on this contrast enhanced exam. Note is again made of a large infarct within the right temporal lobe which measures approximately 10 x 3.2 cm. There is no midline shift. There is no significant compression of the right lateral ventricle. There is moderate calcified plaque within the bilateral cavernous carotids without stenosis. Note is made of occlusion of a right M2 branch which supplies the right temporal lobe. This is shown on axial image 126 of 282. There is intraluminal clot. This accounts for the infarct shown on head CT and MRI of the brain. No additional sites of vessel occlusion are present. There is persistence of the right posterior cerebral artery. No intracranial aneurysm is present. There is no dissection within the intracranial vessels. IMPRESSION: 1. Intraluminal clot with occlusion of a right M2 branch which supplies the right temporal lobe and accounts for the large acute infarct within the right temporal lobe, as shown on MRI. 2. No additional sites of vessel occlusion. 3. No intracranial aneurysm. ACT 112: Negative or not required by law. Electronically signed by: Ramin Alfaro M.D. 06/14/2022 7:32 AM Neck CTA 06/13/22 19:24 NECK CTA HISTORY: right sided cva TECHNIQUE: Multiaxial CT images of the neck were performed following the intravenous administration of contrast to evaluate the major cervical vessels. Maximum intensity projection images were also obtained. All measurements were calculated based on NASCET criteria. A dose lowering technique was utilized adhering to the principles of ALARA. COMPARISON STUDY: None. FINDINGS: The aortic arch and proximal great vessels are widely patent. There is no significant stenosis, occlusion, or dissection identified within the bilateral common carotid, internal carotid, or vertebral arteries. Mild to moderate calcified plaque within the bilateral carotid bifurcations. 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 IMPRESSION: No significant stenosis, occlusion, or dissection identified within the carotid or vertebral arteries. ACT 112: Negative or not required by law. Electronically signed by: Fransisco Rushing M.D. 06/14/2022 7:16 AM Brain MRI 06/13/22 19:25 Brain MRI WITH AND WITHOUT CONTRAST HISTORY: Left-sided weakness. Confusion. TECHNIQUE: Multiplanar multisequence MRI of the brain was performed both before and after the intravenous administration of contrast. COMPARISON STUDY: Head CT 06/13/2022. FINDINGS: There is 11 cm area of restricted diffusion involving the right parietal and temporal lobes consistent with a large acute right MCA territory infarct. There is associated cytotoxic edema at the area of infarct. No significant midline shift or mass effect. Paravertebral white matter T2 hyperintensity is nonspecific but favors microvascular ischemic change. The ventricles and sulci demonstrate mild age-related involutional changes. No intracranial hemorrhage identified. Postcontrast sequences show no areas of abnormal enhancement. The paranasal sinuses and mastoid air cells are clear. Evidence for prior bilateral lens replacement. The major vascular flow-voids at the skull base are maintained. IMPRESSION: Confirmation of the acute large right MCA territory infarct as described above. No midline shift or intracranial hemorrhage identified at this time. ACT 112: Negative or not required by law. Electronically signed by: Fransisco Rushing M.D. 06/14/2022 7:24 AM Hip/Pelvis X-Ray 06/14/22 00:27 XR hip 1V RT w pelvis CLINICAL HISTORY: fall, hip pain COMPARISON: CT of the abdomen and pelvis June 13, 2022. FINDINGS: Balderas catheter is in place. There is contrast within the bladder, collecting systems and ureters from recent contrast-enhanced CT. No acute fracture within the pelvis or hips is identified. There is severe bilateral hip osteoarthritis. Sacroiliac joints and symphysis pubis are intact. IMPRESSION: 1. No acute fracture within the pelvis or hips. 2. Severe bilateral hip osteoarthritis. ACT 112: Negative or not required by law. Electronically signed by: Ramin Alfaro M.D. 06/14/2022 7:33 AM (1) Rhabdomyolysis Rhabdomyolysis type: non-traumatic Qualified Code(s): M62.82 - Rhabdomyolysis
[2022-06-15] MEDS: DIGOXIN 0.125 MG TAB PO SCH (15:50)
[2022-06-15] MEDS: VENLAFAXINE HCL XR 75 MG CAPXR PO SCH (21:13)
[2022-06-15] MEDS: ATORVASTATIN 40 MG TAB PO SCH (21:13)
[2022-06-16] MEDS: SODIUM CHLORIDE 0.9% 1000ML 1,000 ML IV SCH (06:35)
[2022-06-16] MEDS: LEVOTHYROXINE SODIUM 75 MCG TABLET PO SCH (06:35)
[2022-06-16] MEDS: ASPIRIN 325 MG ECTAB PO SCH (08:41)
[2022-06-16] MEDS: ENOXAPARIN INJ 40 MG/0.4 ML SYR SQ SCH (08:42)
[2022-06-16] MEDS: TAMOXIFEN CITRATE 10 MG TABLET PO SCH (08:42)
--- NOTE | 2022-06-16 09:28 | CT Scan Report ---
CT SCAN OF THE BRAIN WITHOUT IV CONTRAST CLINICAL HISTORY: Follow-up stroke. COMPARISON STUDY: CT an MRI of the brain dated 06/13/2022. TECHNIQUE: Unenhanced axial CT scan of the brain is performed from the vertex to the skull base. A do se lowering technique was utilized adhering to the principles of ALARA. CT DOSE: 614.27 mGy.cm FINDINGS: Brain parenchyma: There is a large evolving right MCA territory infarct with mild associated edema. T here is no hemorrhage or midline shift. No new foci of acute ischemia are suggested by CT. There is a ge-related involutional change noting moderate subcortical and periventricular microangiopathic disea se. No extra-axial fluid collection is seen. Ventricles, sulci, cisterns: Prominent secondary to involutional change. Intracranial vasculature: There is atherosclerotic calcification of the cavernous carotid and vertebr al arteries. Calvarium: Unremarkable. Sinuses and mastoids: The visualized paranasal sinuses are clear. The mastoid air cells are well pneu matized. Orbits: The bony orbits are grossly intact. There are bilateral ocular lens implants. IMPRESSION: 1. There is a large evolving right MCA territory infarct. 2. No hemorrhage or midline shift is seen. ACT 112: Negative or not required by law. Electronically signed by: Macho Blount M.D. 06/16/2022 9:27 AM
--- NOTE | 2022-06-16 14:04 | Hospitalist Progress Note ---
Date of Service June 16, 2022 Assessment & Plan (1) Acute ischemic cerebrovascular accident (CVA) involving right middle cerebral artery territory: Plan: - Head CT shows a 7 x 2.9 cm hypodense focus with loss of byrne-white differentiation within the right temporal lobe. MRI confirms large acute R MCA infarct. * Most likely secondary to not taking Xarelto in setting of permanent Afib - Head CTA confirms intraluminal clot w/ occlusion of a R M2 branch which suppl ies the R temporal lobe and accounts for large infarct thus supporting cardioembolic stroke - Neck CTA w/o significant stenosis, occlusion, or dissection of carotid or vertebral arteries - Echo completed and results reviewed. - PT, OT, ST evaluated pt on 06/14. Advised SNF upon d/c. [employer] ordered pureed diet. - Permissive HTN allowed, BP low-normal this AM. She was placed on Dilt gtt for afib rate control but was stopped to allow for permissive HTN - Neurology consult placed, appreciate recommendations. Resumed ASA daily. - Transitioned off cpap to nasal cannula and this AM is on room air - Lipitor resumed at higher dose of 40mg at HS. - Repeat head CT done this morning, no evidence of hemorrhagic conversion, resume Xarelto (2) Atrial fibrillation with rapid ventricular response: Plan: - Permanent. Managed on Xarelto, as well as digoxin and Cardizem for rate control, however has likely not had these medications in nearly one week. - Dig level <0.3. Goal digoxin < 1.0 per cardiology. - Patient with HR in [id number] in ED, started on dilt drip without bolus. Has not been able to tolerate b-blockers in the past. - Diltiazem gtt stopped 06/14 to allow for permissive HTN and she was started on some IVF - Resumed Digoxin 06/14. Rate currently controlled. - Resume Xarelto 06/16 - Resume Diltiazem CD 180mg (3) Rhabdomyolysis: Plan: - CK 1274, patient down on ground for unknown amount of time. Renal function about her baseline. Initial lactate 2.3, down to 1.8 after 500 cc NS bolus x2 in ED. - Continue IVF, repeat CK this AM down to 440 - No longer w/ rhabdo - Change fluids to NSS at 100 ml/hr-capped 06/16 (4) Pressure ulcer: Plan: - Patient had been down on ground for an unknown number of hours. There is some skin breakdown around the sacral region. - Wound care consult placed, appreciate assistance. Frequent positioning/offload pressure. (5) CAD (coronary artery disease): Plan: - Mild, nonobstructive CAD noted in the past. CT scan in 2018 demonstrated densely calcified coronary arteries per report. Negative myocardial perfusion study in 2018. - EKG in ED does show some ST and T wave abnormalities in inferior and anterolateral leads, initial troponin 45.4, repeat several hours later 44.6. - Patient without chest pain or dyspnea. - Initial HS trop 37.8 --> 28.4 (6) Hypertension: Plan: - Enalapril and diltiazem held while NPO and still on 06/15 to allow for permissive HTN - BP now 170s, will resume Diltiazem and Enalapril (7) Dyslipidemia: Plan: - Resumed Lipitor at increased dose (8) Malignant neoplasm of upper-outer quadrant of right breast in female, estrogen receptor positive: Plan: - s/p right mastectomy, on tamoxifen prophylactically (initially held d/t NPO status) which was resumed 06/14 (9) Severe obstructive sleep apnea: Plan: - Continue CPAP at night. (10) Hypothyroidism: Plan: - Resumed Levothyroxine 75mcg on 06/15 TSH normal in 02/2022 (11) Depression: Plan: - Resumed Venlafaxine, increased dose fo 150mg d/t profound depression (12) Insomnia: Plan: - Can resume temazepam 06/16. (13) Acute urinary retention: Plan: - bladder distended with bilat hydronephrosis on CT abd/pel - placed [place] catheter, continue for now - likely neurogenic in nature - trial at removal of cart[place]a and can place an external catheter if needed - bladder scan as needed Plan DVT ppx advised by neuro-Started on Lovenox 40mg sq daily on 06/14 which is stopped 06/16 (as we are resuming her Xarelto) Pt does have a designated medical POA, Efrain Mendiola, . Paperwork received by case management. I have provided telephone update to him as well as a bedside update to patient's close friend, Carlie on 06/16. Repeat head CT w/o hemorrhagic conversion, will resume Xarelto today. Given her depression and voicing wishes to , I did speak with palliative care physician, Dr. Ng. I was hoping that she would be receptive and her close friend, Carlie agreed. Unfortunately she refused to speak with her. Did increase her Effexor as noted above. She is medically stable for discharge back to on 06/17. Admission and Anticipated Discharge Date Admission Date: June 13, 2022 Subjective Patient seen on daily rounds this morning, she remains in bed, currently accompanied by her close friend, Carlie. She apparently didn't work with therapy on 06/15 as she was sleeping. She presently has no complaints. Nursing notes that she continues to reiterate wishes to and again asked if the nightshift nurse would kill her. Refused labs this morning. Review of Systems Review of Systems: All systems reviewed and are unremarkable except as noted in HPI and below. Denies fever, chills, fatigue, headache, nasal congestion, sore throat, cough, chest pain, shortness of breath, palpitations, orthopnea, PND, abdominal pain, n/v/d, constipation, dysuria, hematuria, frequency, back pain, joint pain or swelling, easy bruising or bleeding, skin lesions or rashes. Physical Exam Physical Exam: GENERAL: 82 yo Well-developed, well-nourished elderly WF. NAD. LUNGS: Clear to auscultation bilaterally. No W/R/R. CARDIOVASCULAR: Irregular rhythm with controlled rate ABDOMEN: Soft, non-distended. BS normoactive x 4 quad. EXTREMITIES: No edema. Peripheral pulses +2/4. NEUROLOGIC: Awake, alert. Answers questions appropriately with yes/no. Some repetitive speech pattern. L UE & LE hemiparesis/left sided neglect PSYCHIATRIC: Calm, cooperative. Depressed mood. SKIN: Warm, dry, intact. superficial sacral skin breakdown noted Results & Data Results & Data ([facility]) Vital Signs (Past 12 Hours) Vital Signs Temp Pulse Resp BP Pulse Ox O2 Del Method 06/16/22 11:33 37.1 C 95 H 18 171/83 H 96 Room Air 06/16/22 07:50 37.3 C 74 22 167/77 H 96 Room Air 06/16/22 02:53 37.0 C 74 18 154/77 H 98 Laboratory Results patient refused Diagnostic Findings Head CT 06/16/22 09:00 CT SCAN OF THE BRAIN WITHOUT IV CONTRAST CLINICAL HISTORY: Follow-up stroke. COMPARISON STUDY: CT an MRI of the brain dated 06/13/2022. TECHNIQUE: Unenhanced axial CT scan of the brain is performed from the vertex to the skull base. A dose lowering technique was utilized adhering to the principles of ALARA. CT DOSE: 614.27 mGy.cm FINDINGS: Brain parenchyma: There is a large evolving right MCA territory infarct with mild associated edema. There is no hemorrhage or midline shift. No new foci of acute ischemia are suggested by CT. There is age-related involutional change noting moderate subcortical and periventricular microangiopathic disease. No extra-axial fluid collection is seen. Ventricles, sulci, cisterns: Prominent secondary to involutional change. Intracranial vasculature: There is atherosclerotic calcification of the cavernous carotid and vertebral arteries. Calvarium: Unremarkable. Sinuses and mastoids: The visualized paranasal sinuses are clear. The mastoid air cells are well pneumatized. Orbits: The bony orbits are grossly intact. There are bilateral ocular lens implants. IMPRESSION: 1. There is a large evolving right MCA territory infarct. 2. No hemorrhage or midline shift is seen. ACT 112: Negative or not required by law. Electronically signed by: Macho Blount M.D. 06/16/2022 9:27 AM PG Care Time/CCT Total # of Minutes Spent Total Time Spent with Patient: Total time spent is greater than 50% in coordination of care (as documented) at patient's floor/unit and/or counseling patient: Coding Level of Care Code 40647 Subseq Hosp Care Lvl 2 Diagnoses 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 (1) Rhabdomyolysis Rhabdomyolysis type: non-traumatic Qualified Code(s): M62.82 - Rhabdomyolysis (2) Pressure ulcer Laterality: unspecified laterality Pressure injury location: buttock Pressure injury stage: stage 1 Qualified Code(s): L89.301 - Pressure ulcer of unspecified buttock, stage 1
[2022-06-16] MEDS ORDERED: TEMAZEPAM 15 MG CAPSULE PO PRN (15:36)
[2022-06-16] MEDS: DIGOXIN 0.125 MG TAB PO SCH (16:43)
[2022-06-16] MEDS ORDERED: VENLAFAXINE HCL XR 150 MG CAPXR PO SCH (21:00)
[2022-06-16] MEDS ORDERED: RIVAROXABAN 20 MG TAB PO SCH (21:00)
[2022-06-16] MEDS: ATORVASTATIN 40 MG TAB PO SCH (21:04)
[2022-06-17] MEDS: LEVOTHYROXINE SODIUM 75 MCG TABLET PO SCH (05:29)
[2022-06-17] MEDS: TAMOXIFEN CITRATE 10 MG TABLET PO SCH (07:53)
[2022-06-17] MEDS ORDERED: hydrALAZINE HCL 20 MG/ML VIAL IV PRN (08:04)
[2022-06-17] MEDS: ENALAPRIL MALEATE 10 MG TAB PO SCH (08:34)
[2022-06-17] MEDS ORDERED: dilTIAZem HCL 240 MG CAPCR PO SCH (09:00)
[2022-06-17 13:06] VITALS: BP 131/67; PULSE 90; TEMP 98.6; O2SAT 97
[2022-06-17] MEDS ORDERED: STROKE PATIENT DISCHARGE STA (13:18)
--- NOTE | 2022-06-17 13:27 | Discharge Summary ---
Date of Service June 17, 2022 Admission HPI Per Admitting Provider Madeline Holley is an 82-year-old female with past medical history significant for nonobstructive CAD, permanent A. fib on Xarelto, hypertension, dyslipidemia, depression, breast cancer, and [place] who presents today from independent living facility at [facility] after being found down on the ground in her home. Patient is unable to provide history, therefore is obtained from ED provider, as well as friend who is her primary contact and is at bedside. Patient's last known well is known to be yesterday around 12 PM. Later in the afternoon, and I texted her about plans they had the day, however she never responded. Today, when she was checked on she was found down on the ground in her apartment and was confused, which is significant deviation from her baseline. Baseline is AAO x3 and is able to ambulate independently. She complained of pain with any movement at her facility before being evaluated in ED, however here her only complaint is that she is very tired. Unable to recall what led to her fall. Staff noted that the majority of her pills were still in her pillbox when they found her today, estimating the last time she would have taken any of her medications was last Monday. She is in permanent A. fib and on Xarelto, however likely has not had this for several days. Presentation to the ED, she is hypertensive with presenting BP 147/100, HR 120s, and A. fib. Febrile with temp of 37.7 C. SPO2 >95% on RA. Lab significant for leukocytosis, initial lactate 2.3, CK 1274, troponin 45.4. Head CT showed a 7 x 2.9 cm hypodense focus with loss of byrne-white differentiation within the right temporal lobe which is new since head CT of February 21, 2022. Although age indeterminate, the appearance favors a large subacute right MCA territory infarct. 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 NAD. LUNGS: Clear to auscultation bilaterally. No W/R/R. CARDIOVASCULAR: Irregular rhythm with controlled rate ABDOMEN: Soft, non-distended. BS normoactive x 4 quad. EXTREMITIES: No edema. Peripheral pulses +2/4. NEUROLOGIC: Awake, alert. Answers questions appropriately. Follows commands. L UE & LE hemiparesis/left sided neglect PSYCHIATRIC: Calm, cooperative. Depressed mood. SKIN: Warm, dry, intact. superficial sacral skin breakdown noted Discharge Data Allergies Allergy/AdvReac Type Severity Reaction Status Date / Time sodium benzoate Allergy Unknown migraine Verified 06/13/22 15:48 Sulfa (Sulfonamide Allergy Unknown rash Verified 06/13/22 15:48 Antibiotics) Consultations 06/13/22 15:21 ED Decision to Admit Stat 06/13/22 18:47 Consult Neurology Routine 06/16/22 13:59 Consult Palliative Care Routine Ordered Studies Abdomen/Pelvis CT 06/13/22 12:37 CT SCAN OF THE ABDOMEN AND PELVIS WITHOUT IV CONTRAST CLINICAL HISTORY: Fall. Change in mental status. COMPARISON STUDY: Abdominal CT dated 05/25/2018. TECHNIQUE: CT scan of the abdomen and pelvis is performed from the lung bases to the proximal femora. Images are reviewed in the axial, sagittal, and coronal planes. IV contrast was not administered for this examination. Note that the examination is significantly suboptimal without oral and IV contrast. There is also motion artifact, as well as streak artifact from the arms which could not be elevated above the abdomen. A dose lowering technique was utilized adhering to the principles of ALARA. CT DOSE: 1264.05 mGy.cm FINDINGS: Lung bases: The heart is enlarged and without pericardial effusion. The pulmonary arteries is densely calcified. There is a small hiatal hernia. The lung bases are clear noting bibasilar scarring/atelectasis. Liver: Evaluation of the liver are significantly degraded by streak artifact. The unenhanced liver is normal in size, contour, and attenuation. There is no intrahepatic biliary ductal dilatation. A 2.3 cm ovoid nearly isodense structure along the inferior margin of liver is unchanged. Gallbladder: Unremarkable. Spleen: Normal in size and attenuation. Pancreas: The unenhanced pancreas is moderately atrophic and grossly unremarkable. Adrenal glands: Unremarkable. Kidneys: The unenhanced kidneys are normal in size. There is mild to moderate bilateral hydroureteronephrosis, likely related to the greater bladder distention. There are least 2 punctate nonobstructing left renal calculi. A single punctate calculus is seen on the right. There is no evidence of contour deforming renal mass lesion. Abdominal vasculature: The abdominal aorta is normal in course and caliber noting advanced atherosclerotic calcification. Bowel: There is advanced colonic diverticulosis without CT evidence of acute diverticulitis. No bowel obstruction is identified. Mild fecal retention is seen throughout the colon. The appendix is normal as imaged. Peritoneum: There is no intraperitoneal free air or abdominal ascites. Lymphadenopathy: None. Pelvic viscera: The bladder is markedly distended. A 2.5 cm bladder diverticulum is seen along the right superior aspect of the bladder wall on image #300. The uterus and adnexa are normal as visualized. Skeletal structures: The skeletal structures are osteopenic. The lumbosacral spine, bony pelvis, and proximal femora appear intact. There is moderate lumbosacral spondylosis and scoliosis. Advanced arthritic change is seen in the hips. No lytic or blastic lesions are seen. IMPRESSION: 1. Significantly suboptimal examination without oral or IV contrast. There is also streak and motion artifact. 2. There is no evidence of solid organ injury in the abdomen or pelvis on this unenhanced examination. 3. Severe bladder distention. 4. Moderate bilateral hydroureteronephrosis is likely related to bladder distention. 5. Cardiomegaly. 6. Advanced colonic diverticulosis without CT evidence of acute diverticulitis. 7. Bilateral nephrolithiasis. 8. Additional findings as above. ACT 112: Negative or not required by law. Electronically signed by: Macho Blount M.D. 06/13/2022 2:[address] 06/13/22 12:37 CT cervical spine wo con CLINICAL HISTORY: fall TECHNIQUE: Multidetector row helical CT of the cervical spine was performed without administration of intravenous contrast. Coronal and sagittal reformations were obtained. Automated dose lowering techniques and/or adjustment according to patient size were utilized for this exam. Comparison: None available at the time of this dictation. FINDINGS: No acute fractures or subluxations are identified. Degenerative changes are seen in the visualized spine. Likely old calcific densities are seen for example at the spinous process of C5 or at the left transverse process of C5. Prominent lordosis of the cervical spine is seen, likely chronic. A calcific density to the right of C1 is likely chronic. Partial visualization of bilateral carotid bulb calcifications. IMPRESSION: Prominent degenerative changes without evidence of acute fracture. ACT 112: Negative or not required by law. Electronically signed by: Isidro Romero M.D. 06/13/2022 2:50 PM Chest X-Ray 06/13/22 12:37 XR chest 1V portable CLINICAL HISTORY: SEPSIS TECHNIQUE: Single frontal radiograph of the chest was obtained. Comparison: Comparison is made to chest radiograph 02/21/2022 FINDINGS: No lines and tubes are seen. Cardiomegaly is noted. Reticular interstitial opacities are seen. No evidence of pleural effusion or pneumothorax. Degenerative changes are seen in the spine and shoulder joints. IMPRESSION: No acute chest disease. ACT 112: Negative or not required by law. Electronically signed by: Isidro Romero M.D. 06/13/2022 1:[address] 06/13/22 12:37 CT OF THE HEAD WITHOUT CONTRAST CLINICAL HISTORY: Fall. COMPARISON STUDY: MRI of the brain June 22, 2021. Head CT February 21, 2022. TECHNIQUE: Helical axial images of the head were obtained without IV contrast. Automated exposure control was utilized for the study. A dose lowering technique was utilized adhering to the principles of ALARA. FINDINGS: No acute intracranial hemorrhage is present. Note is made of a new 7 x 2.9 cm hypodense focus with loss of byrne-white differentiation within the right temporal lobe. This was not present on CT of February 21, 2022. There is no significant mass effect. White matter hypodensity suggests small vessel disease. Ventricular system is normal. Basal cisterns are patent. There are no extra axial collections. A 1.7 cm lytic right parietal bone lesion on axial image 2428 is noted. This is unchanged since CT of February 21, 2022. This is new since head CT of July 06, 2020. Right upper neck and occipital edema is incidentally noted. IMPRESSION: 1. No acute intracranial hemorrhage. No acute calvarial fracture. 2. 7 x 2.9 cm hypodense focus with loss of byrne-white differentiation within the right temporal lobe which is new since head CT of February 21, 2022. Although age indeterminate, the appearance favors a large subacute right MCA territory infarct. Imaging follow-up is recommended to ensure expected evolution is recommended. ACT 112: Negative or not required by law. Electronically signed by: Ramin Alfaro M.D. 06/13/2022 2:57 PM Head CTA 06/13/22 19:24 CTA ANGIOGRAPHY OF THE HEAD CLINICAL HISTORY: right sided CVA COMPARISON STUDY: Head CT and MRI of the brain performed earlier today. Head CT February 21, 2022. TECHNIQUE: Helical axial images of the head were obtained following uneventful intravenous administration of 118 cc of Optiray. Sagittal and coronal reconstructions were viewed as well as maximal intensity projections on an independent 3-D workstation. Automated exposure control was utilized for the study. A dose lowering technique was utilized adhering to the principles of ALARA. CT DOSE: 778.81 mGy.cm FINDINGS: No acute intracranial hemorrhage is identified although sensitivity is diminished on this contrast enhanced exam. Note is again made of a large infarct within the right temporal lobe which measures approximately 10 x 3.2 cm. There is no midline shift. There is no significant compression of the right lateral v entricle. There is moderate calcified plaque within the bilateral cavernous carotids without stenosis. Note is made of occlusion of a right M2 branch which supplies the right temporal lobe. This is shown on axial image 126 of 282. There is intraluminal clot. This accounts for the infarct shown on head CT and MRI of the brain. No additional sites of vessel occlusion are present. There is persistence of the right posterior cerebral artery. No intracranial aneurysm is present. There is no dissection within the intracranial vessels. IMPRESSION: 1. Intraluminal clot with occlusion of a right M2 branch which supplies the right temporal lobe and accounts for the large acute infarct within the right temporal lobe, as shown on MRI. 2. No additional sites of vessel occlusion. 3. No intracranial aneurysm. ACT 112: Negative or not required by law. Electronically signed by: Ramin Alfaro M.D. 06/14/2022 7:32 AM Neck CTA 06/13/22 19:24 NECK CTA HISTORY: right sided cva TECHNIQUE: Multiaxial CT images of the neck were performed following the intravenous administration of contrast to evaluate the major cervical vessels. Maximum intensity projection images were also obtained. All measurements were calculated based on NASCET criteria. A dose lowering technique was utilized adhering to the principles of ALARA. COMPARISON STUDY: None. FINDINGS: The aortic arch and proximal great vessels are widely patent. There is no significant stenosis, occlusion, or dissection identified within the bilateral common carotid, internal carotid, or vertebral arteries. Mild to moderate calcified plaque within the bilateral carotid bifurcations. 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 IMPRESSION: No significant stenosis, occlusion, or dissection identified within the carotid or vertebral arteries. ACT 112: Negative or not required by law. Electronically signed by: Fransisco Rushing M.D. 06/14/2022 7:16 AM Brain MRI 06/13/22 19:25 Brain MRI WITH AND WITHOUT CONTRAST HISTORY: Left-sided weakness. Confusion. TECHNIQUE: Multiplanar multisequence MRI of the brain was performed both before and after the intravenous administration of contrast. COMPARISON STUDY: Head CT 06/13/2022. FINDINGS: There is 11 cm area of restricted diffusion involving the right parietal and temporal lobes consistent with a large acute right MCA territory infarct. There is associated cytotoxic edema at the area of infarct. No significant midline shift or mass effect. Paravertebral white matter T2 hyperintensity is nonspecific but favors microvascular ischemic change. The ventricles and sulci demonstrate mild age-related involutional changes. No intracranial hemorrhage identified. Postcontrast sequences show no areas of abnormal enhancement. The paranasal sinuses and mastoid air cells are clear. Evidence for prior bilateral lens replacement. The major vascular flow-voids at the skull base are maintained. IMPRESSION: Confirmation of the acute large right MCA territory infarct as described above. No midline shift or intracranial hemorrhage identified at this time. ACT 112: Negative or not required by law. Electronically signed by: Fransisco Rushing M.D. 06/14/2022 7:24 AM Hip/Pelvis X-Ray 06/14/22 00:27 XR hip 1V RT w pelvis CLINICAL HISTORY: fall, hip pain COMPARISON: CT of the abdomen and pelvis June 13, 2022. FINDINGS: Balderas catheter is in place. There is contrast within the bladder, collecting systems and ureters from recent contrast-enhanced CT. No acute fracture within the pelvis or hips is identified. There is severe bilateral hip osteoarthritis. Sacroiliac joints and symphysis pubis are intact. IMPRESSION: 1. No acute fracture within the pelvis or hips. 2. Severe bilateral hip osteoarthritis. ACT 112: Negative or not required by law. Electronically signed by: Ramin Alfaro M.D. 06/14/2022 7:[address] 06/16/22 09:00 CT SCAN OF THE BRAIN WITHOUT IV CONTRAST CLINICAL HISTORY: Follow-up stroke. COMPARISON STUDY: CT an MRI of the brain dated 06/13/2022. TECHNIQUE: Unenhanced axial CT scan of the brain is performed from the vertex to the skull base. A dose lowering technique was utilized adhering to the principles of ALARA. CT DOSE: 614.27 mGy.cm FINDINGS: Brain parenchyma: There is a large evolving right MCA territory infarct with mild associated edema. There is no hemorrhage or midline shift. No new foci of acute ischemia are suggested by CT. There is age-related involutional change noting moderate subcortical and periventricular microangiopathic disease. No extra-axial fluid collection is seen. Ventricles, sulci, cisterns: Prominent secondary to involutional change. Intracranial vasculature: There is atherosclerotic calcification of the cavernous carotid and vertebral arteries. Calvarium: Unremarkable. Sinuses and mastoids: The visualized paranasal sinuses are clear. The mastoid air cells are well pneumatized. Orbits: The bony orbits are grossly intact. There are bilateral ocular lens implants. IMPRESSION: 1. There is a large evolving right MCA territory infarct. 2. No hemorrhage or midline shift is seen. ACT 112: Negative or not required by law. Electronically signed by: Macho Blount M.D. 06/16/2022 9:27 AM Hospital Course (1) Acute ischemic cerebrovascular accident (CVA) involving right middle cerebral artery territory: - Head CT shows a 7 x 2.9 cm hypodense focus with loss of byrne-white differentiation within the right temporal lobe. MRI confirms large acute R MCA infarct. * Most likely secondary to not taking Xarelto in setting of permanent Afib - Head CTA confirms intraluminal clot w/ occlusion of a R M2 branch which supplies the R temporal lobe and accounts for large infarct thus supporting cardioembolic stroke - Neck CTA w/o significant stenosis, occlusion, or dissection of carotid or vertebral arteries - Echo completed and results reviewed. - PT, OT, ST evaluated pt on 06/14. Advised SNF upon d/c. WELFARE WORKER ordered pureed diet. - Permissive HTN allowed, BP low-normal on 06/14. She was placed on Dilt gtt for afib rate control but was stopped to allow for permissive HTN - Neurology consult placed, appreciate recommendations. Resumed ASA daily until repeat head CT. - Lipitor resumed at higher dose of 40mg at HS. - Repeat head CT done 06/16, no evidence of hemorrhagic conversion, resumed Xarelto & stopped aspirin (2) Atrial fibrillation with rapid ventricular response: - Permanent. Managed on Xarelto, as well as digoxin and Cardizem for rate control, however has likely not had these medications in nearly one week. - Dig level <0.3. Goal digoxin < 1.0 per cardiology. - Patient with HR in [id number] in ED, started on dilt drip without bolus. Has not been able to tolerate b-blockers in the past. - Diltiazem gtt stopped 06/14 to allow for permissive HTN and she was started on some IVF - Resumed Digoxin 06/14. Rate controlled. - Resume Xarelto 06/16 - Resumed Diltiazem CD 180mg on 06/16 (3) Rhabdomyolysis: - CK 1274, patient down on ground for unknown amount of time. Renal function about her baseline. Initial lactate 2.3, down to 1.8 after 500 cc NS bolus x2 in ED. - Continue IVF, repeat CK this AM down to 440 - No longer w/ rhabdo - Change fluids to NSS at 100 ml/hr-capped 06/16 (4) Pressure ulcer: - Patient had been down on ground for an unknown number of hours. There is some skin breakdown around the sacral region. - Wound care consult placed, appreciate assistance. Frequent positioning/offload pressure. (5) CAD (coronary artery disease): - Mild, nonobstructive CAD noted in the past. CT scan in 2018 demonstrated densely calcified coronary arteries per report. Negative myocardial perfusion study in 2018. - EKG in ED does show some ST and T wave abnormalities in inferior and anterolateral leads, initial troponin 45.4, repeat several hours later 44.6. - Patient without chest pain or dyspnea. - Initial HS trop 37.8 --> 28.4 (6) Hypertension: - Enalapril and diltiazem held while NPO and still on 06/15 to allow for permissive HTN - BP now 170s systolic, resumed Diltiazem and Enalapril 06/16 - BP still accelerated 06/17, Diltiazem CD increased to 240mg - Repeat BP this afternoon controlled at 131/64 (7) Dyslipidemia: - Resumed Lipitor at increased dose (8) Malignant neoplasm of upper-outer quadrant of right breast in female, estrogen receptor positive: - s/p right mastectomy, on tamoxifen prophylactically (initially held d/t NPO status) which was resumed 06/14 (9) Severe obstructive sleep apnea: - Continue CPAP at night. (10) Hypothyroidism: - Resumed Levothyroxine 75mcg on 06/15 TSH normal in 02/2022 (11) Depression: - Resumed Venlafaxine, increased dose fo 150mg d/t profound depression (12) Insomnia: - Resumed temazepam 15mg PRN insomnia on 06/16. (13) Acute urinary retention: - bladder distended with bilat hydronephrosis on CT abd/pel - placed Balderas catheter, continue for now - likely neurogenic in nature - removed catheter 06/16 - pt incontinent of urine but no retention concerns Plan Pt was found to have a designated medical POA, Efrain Mendiola, . Paperwork received by case management. I have provided telephone update to him as well as a bedside update to patient's close friend, Carlie throughout her hospital stay. Given her depression and voicing wishes to , I did speak with palliative care physician, Dr. Ng. I was hoping that she would be receptive and her close friend, Carlie agreed. Unfortunately she refused to speak with her on 06/16. Did increase her Effexor as noted above. There is a concern that she may return to [facility] and fail to thrive. At this time, she is medically and hemodynamically stable for discharge back to [facility]. Notified by rehabilitation caseworker that insurance requested peer to peer. I did contact the insurance company and spoke with physician. Updated therapy notes were faxed this morning by case management to insurance company. Transport has been arranged. She will be followed up by the healthcare team at [facility]. Above plan of care has been d/w Dr. Fragoso who is in agreement. Total Time Total Time Spent Total Time Spent (In Minutes): >30 minutes Discharge Plan Discharge Items Patient Disposition: Transfer Longterm Fac Reason For Visit: CVA Discharge Diagnosis: large right-sided stroke with left sided weakness Activity: As commented below Activity Comment: with assistance as tolerated Non-emergency contact: Primary Care Provider Call non-emergency contact if: you have any medication questions and your symptoms worsen Follow-up/Referrals: Dinesh Salcedo [Primary Care Provider] - Diet: Regular and Heart Healthy Diet Texture: Mechanical soft (ground) Diet Comment: minced and moist Addtl Attending Provider Instructions: Patient was hospitalized due to a large R sided stroke with left sided weakness. She also had some muscle breakdown due to the amount of time she was down on the floor. She was treated with IV fluids. She was not a candidate for thrombolytic therapy due to her unknown last known well time. She underwent an ultrasound of her heart as well as images evaluating the arterial flow in her brain and neck. She was found to have a clot in one of her arteries that supplies the temporal lobe of the brain. She was seen by neurology who advised follow up imaging to exclude conversion of the ischemic stroke to a hemorrhagic stroke. Thankfully, repeat head CT was negative for a bleed. She was restarted on her Xarelto 20mg daily on 06/16. She has been seen by speech therapy, physical and occupational therapy. Speech therapy ordered a pureed diet initially but was advanced in texture to minced and moist which she has been tolerating well. It will be important to monitor for safe swallowing and maintain aspiration precautions. Physical and occupational therapy [facility]. She has been profoundly depressed during her stay and subsequently her Venlafaxine (Effexor) has been increased to 150mg. Please note this change on the discharge medication reconciliation. We attempted to have her speak with the palliative care physician but she refused. She is going to be transferred back to [facility] at the jail facility level where they can continue to work with her through physical and occupational therapy. If any questions/concerns arise, please contact through the nonemergency number listed on your discharge paperwork. Pending Studies at Discharge: No Stand-Alone Forms: Medications to Prevent Stroke, My [facility] Skilled Items Patient informed of condition?: Yes DNR: Yes Discharge Level of Care: Skilled Communicable Disease: No Discharge Prognosis: Stable Lines: None Urinary Catheter: No Medications and DC Order Prescriptions: New atorvastatin 40 mg Tablet 40 mg PO QPM Qty: 30 0RF diltiazem HCl 240 mg Capsule,Extended Release 24hr 240 mg PO QAM Qty: 30 0RF venlafaxine 150 mg Capsule,Extended Release 24hr 150 mg PO QPM Qty: 30 0RF Continued tamoxifen 20 mg tablet 20 mg PO DAILY Xarelto 20 mg tablet 20 mg PO QPM Qty: 90 3RF Rx Instructions: must administer with evening meal digoxin [Digox] 125 mcg (0.125 mg) tablet 125 mcg PO QAM potassium chloride 10 mEq tablet extended release 10 meq PO QPM temazepam 15 mg capsule 15 mg PO HS PRN (Reason: sleep) ramipril 5 mg capsule 5 mg PO QAM levothyroxine 75 mcg capsule 75 mcg PO QAM albuterol sulfate 90 mcg/actuation Hfa Aerosol Inhaler 2 puff INHALATION QID Discontinued atorvastatin 20 mg tablet 20 mg PO QPM Qty: 90 3RF venlafaxine [Effexor XR] 75 mg capsule,extended release 24hr 75 mg PO QPM Rx Instructions: PLUS 37.5MG + 75 MG = 112.5MG diltiazem HCl [Cardizem CD] 180 mg capsule,extended release 24hr 180 mg PO QAM venlafaxine [Effexor XR] 37.5 mg Capsule,Extended Release 24hr 37.5 mg PO PM Rx Instructions: 37.5MG +97vw=541.5mg Discharge Orders: Discharge Order (Routine); Ordered 06/17/22 Ordered By: Deedee Pete Admission Data Admit Date/Time: 06/13/22 15:33 Attending Provider: Tj Fragoso Admit Provider: Aziza Yan Primary Care Provider: Dinesh Salcedo Other Providers: Aziza Yan ; Trevor Herrera ; Omar Connors ; Gabriella Ng Coding Level of Care Code D/C DAY MANAGEMENT >30 MINS Diagnoses 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
== END 2022-06-17 16:05 | DRG 65 ==
LOC: ED 12:25 → 2E 15:33 → SUATTDRO 15:33 → 2E 17:38